=== PATIENT | female | born 1955 | race Caucasian/White ===

== ENCOUNTER 2016-03-25 22:29 | Inpatient (IN) | payer OTHER ==
--- NOTE | 2016-03-25 22:45 | PDOC ---
History of Present Illness - General History Source: Patient, EMS <Josemaria victoriaYovany yeh - Last Filed: 03/26/16 00:13> - General History Source: Patient Exam Limitations: No Limitations - History of Present Illness Initial Comments: 03/25/16 23:19 The patient is a 57 year old female, with no significant past medical history, who presents to the emergency department complaining of a cough and progressively worsening shortness of breath for 2 days. The patient describes the cough as productive with rust colored sputum. The patient denies any associated fever, chills, headache, or dizziness. She states she was last seen by her application coordinator in October, who said her heart was normal at the time. She reports she was started on diuretics at the time, but has discontinued treatment. The patient denies any prior diagnosis of COPD or heart failure. The patient reports she has been feeling generally weak and tired for several days. She reports worsening facial puffiness and eye itchiness for the past 3 weeks. The patient denies any nausea, vomiting, diarrhea, constipation, or changes in urinary output. The patient denies any chest pain, diaphoresis, or palpitations. Allergies: None reported. Past Surgical History: None reported. Social History: Former smoker(quit 1 year ago). Denies alcohol or drug use. <Armida Mccarthy - Last Filed: 03/26/16 01:38> - General Chief Complaint: Shortness of Breath Stated Complaint: SHORTNESS OF BREATH Time Seen by Provider: 03/25/16 22:43 Past History - Psycho/Social/Smoking Cessation Hx Suicidal Ideation: No Smoking History: Former smoker Have you smoked in the past 12 months: Yes Information on smoking cessation initiated: Yes Hx Alcohol Use: No Drug/Substance Use Hx: No <Yovany De Leon - Last Filed: 03/26/16 00:13> <Armida Mccarthy - Last Filed: 03/26/16 01:38> - Past Medical History Allergies/Adverse Reactions: Allergies Allergy/AdvReac Type Severity Reaction Status Date / Time No Known Allergies Allergy Verified 03/25/16 22:38 Home Medications: Ambulatory Orders Amlodipine Besylate 5 mg PO DAILY 03/26/16 Review of Systems - Review of Systems Able to Perform ROS?: Yes Comments:: 03/25/16 23:19 CONSTITUTIONAL: Present: +generalized weakness, +tiredness Absent: fever, chills, diaphoresis, malaise, loss of appetite HEENT: Absent: rhinorrhea, nasal congestion, throat pain, throat swelling, difficulty swallowing, mouth swelling, ear pain, eye pain, visual Changes CARDIOVASCULAR: Absent: chest pain, syncope, palpitations, irregular heart rate, lightheadedness , peripheral edema RESPIRATORY: Present: +cough, +shortness of breath Absent: dyspnea with exertion, orthopnea, wheezing, stridor, hemoptysis GASTROINTESTINAL: Absent: abdominal pain, abdominal distension, nausea, vomiting, diarrhea, constipation, melena, hematochezia GENITOURINARY: Absent: dysuria, frequency, urgency, hesitancy, hematuria, flank pain, genital pain MUSCULOSKELETAL: Absent: myalgia, arthralgia, joint swelling SKIN: Absent: rash, itching, pallor HEMATOLOGIC/IMMUNOLOGIC: Absent: easy bleeding, easy bruising, lymphadenopathy, frequent infections ENDOCRINE: Absent: unexplained weight gain, unexplained weight loss, heat intolerance, cold intolerance NEUROLOGIC: Absent: headache, focal weakness or paresthesias, dizziness, unsteady gait, seizure, mental status changes, bladder or bowel incontinence PSYCHIATRIC: Absent: anxiety, depression, suicidal or homicidal ideation, hallucinations. <Armida Mccarthy - Last Filed: 03/26/16 01:38> *Physical Exam - Vital Signs Last Vital Signs Temp Pulse Resp BP Pulse Ox 97.7 F 111 H 24 126/87 03/25/16 22:38 03/25/16 22:38 03/25/16 22:38 03/25/16 22:38 <Yovany De Leon - Last Filed: 03/26/16 00:13> - Vital Signs Last Vital Signs Temp Pulse Resp BP Pulse Ox 97.7 F 111 H 24 126/87 64 L 03/25/16 22:38 03/25/16 22:38 03/25/16 22:38 03/25/16 22:38 03/25/16 22:38 - Physical Exam Comments: 03/25/16 23:19 GENERAL: Well developed, well nourished. Awake and alert. HEENT: Facial edema. Normocephalic, atraumatic. PERRLA, EOMI. No conjunctival pallor. Sclera are non-icteric. Moist mucous membranes. Oropharynx is clear. NECK: Supple. Full ROM. No JVD. Carotid pulses 2+ and symmetric, without bruits. No thyromegaly. No lymphadenopathy. CARDIOVASCULAR: Tachycardic. No murmurs, rubs, or gallops. Distal pulses are 2+ and symmetric. PULMONARY: Significant respiratory distress. oarse wheezing bilaterally in all lung branch. No rales or rhonchi. ABDOMINAL: Soft. Non-tender. Non-distended. No rebound or guarding. No organomegaly. Normoactive bowel sounds. MUSCULOSKELETAL Normal range of motion at all joints. No bony deformities or tenderness. No CVA tenderness. EXTREMITIES: +2 pitting edema in bilateral lower extremities. No cyanosis. No clubbing. No calf tenderness. SKIN: Warm and dry. Normal capillary refill. No rashes. No jaundice. NEUROLOGICAL: Alert, awake, appropriate. Cranial nerves 2-12 intact. No deficits to light touch and temperature in face, upper extremities and lower extremities. No motor deficits in the in face, upper extremities and lower extremities. Normoreflexic in the upper and lower extremities. Normal speech. Toes are down- going bilaterally. Gait is normal without ataxia. PSYCHIATRIC: Cooperative. Good eye contact. Appropriate mood and affect. <Armida Mccarthy - Last Filed: 03/26/16 01:38> Heart Score/ECG Review - ECG Impressions Comment:: 03/26/16 01:38 Vent. Rate: 97 bpm IMPRESSION: Normal sinus rhythm. Possible left atrial enlargement. Right bundle branch block. <Armida Mccarthy - Last Filed: 03/26/16 01:38> ED Treatment Course - LABORATORY CBC & Chemistry Diagram: 03/25/16 23:00 03/25/16 23:00 <Yovany De Leon - Last Filed: 03/26/16 00:13> - LABORATORY CBC & Chemistry Diagram: 03/25/16 23:00 03/25/16 23:00 - ADDITIONAL ORDERS Additional order review: 03/25/16 23:00 RBC 3.96 MCV 108.4 H MCHC 33.5 RDW 14.0 MPV 7.1 L Neutrophils % Y Lymphocytes % Y - RADIOLOGY Radiograph Interpretation: 03/26/16 00:15 EXAM: CXR INTERPRETED BY: Dr. King REVIEWED BY: Dr. De Leon IMPRESSION: Cardiomegaly with bilateral interstitial and airspace opacities mainly in the right lung and consolidation in the right lower lobe consistent with pneumonia. Correlate clinically and follow-up is needed <Armida Mccarthy - Last Filed: 03/26/16 01:38> Medical Decision Making - Medical Decision Making 03/26/16 00:13 Dr. De Leon: The scribe's documentation has been prepared under my direction and personally reviewed by me in its entirery. I confirm that the note above accurately reflects all work, treatment, procedures, and medical decision making performed by me. Patient found to have a right lower lobe pneumonia. Patient will be to [facility] for IV Abx <Yovany De Leon - Last Filed: 03/26/16 00:13> *DC/Admit/Observation/Transfer - Discharge Dispostion Admit: Yes <Yovany De Leon - Last Filed: 03/26/16 00:13> <Armida Mccarthy - Last Filed: 03/26/16 01:38> Diagnosis at time of Disposition: Pneumonia Qualifiers: Pneumonia type: due to unspecified organism Laterality: right Lung location: lower lobe of lung Qualified Code(s): J18.9 - Pneumonia, unspecified organism - Referrals
[2016-03-25] MEDS ORDERED: MAGNESIUM SULF 50% (8.12 MEQ/2 ML-1 GM VIAL) IVPB ONE (22:56)
[2016-03-25] MEDS ORDERED: methylPREDNISolone NA SUCC 125 MG/2 ML VIAL IVPB ONE (22:56)
[2016-03-25 23:12] LABS: MCH 36.4 pg (25.7-33.7); MCHC 33.5 g/dl (32.0-36.0); MEAN CELL VOLUME 108.4 fl (80-96); MEAN PLT VOLUME 7.1 fl (7.5-11.1); PLATELET COUNT 231 K/MM3 (134-434); WHITE BLOOD COUNT 10.9 K/mm3 (4.0-10.0)
[2016-03-25] MEDS ORDERED: MAGNESIUM SULF 50% (8.12 MEQ/2 ML-1 GM VIAL) ONE (23:12)
[2016-03-25] MEDS ORDERED: methylPREDNISolone NA SUCC 125 MG/2 ML VIAL ONE (23:12)
[2016-03-25] MEDS ORDERED: ALBUTEROL SO4 2.5/IPRATROPIUM 0.5 INH SOL 3 ML VIAL.NEB. NEB STA ×2 (23:16)
[2016-03-25 23:31] LABS: ALBUMIN 3.2 g/dl (3.4-5.0); ANION GAP 12 (8-16); BILIRUBIN,TOTAL 0.5 mg/dL (0.2-1.0); CO2 32 mmol/L (21-32); CREATININE 0.6 mg/dL (0.55-1.02); GLUCOSE,RANDOM 135 mg/dL (74-106); SGOT/AST 33 U/L (15-37); SGPT/ALT 27 U/L (12-78); TOT PROT 6.8 g/dl (6.4-8.2)
[2016-03-25 23:32] LABS: ALK PHOS 79 U/L (45-117)
[2016-03-25] MEDS ORDERED: ALBUTEROL SO4 2.5/IPRATROPIUM 0.5 INH SOL 3 ML VIAL.NEB. NEB ONE (23:37)
[2016-03-25 23:54] LABS: TROPONIN I 0.07 ng/ml (0.00-0.05)
[2016-03-25] MEDS ORDERED: AZITHROMYCIN IVPB 500 MG in DEXTROSE 5%-WATER - 250 ML IVPB ONE (23:54)
[2016-03-25] MEDS ORDERED: CEFTRIAXONE 50 ML ONE (23:55)
[2016-03-25] MEDS ORDERED: AZITHROMYCIN IVPB 250 ML IVPB ONE (23:55)
[2016-03-25] MEDS ORDERED: METOCLOPRAMIDE HCL INJECTION 10 MG/2 ML VIAL IVPUSH ONE (23:56)
[2016-03-26] MEDS ORDERED: AZITHROMYCIN IVPB 250 ML IVPB ONE ×2 (00:09→09:21)
[2016-03-26] MEDS ORDERED: METOCLOPRAMIDE HCL INJECTION 10 MG/2 ML VIAL ONE ×2 (00:09→00:16)
--- NOTE | 2016-03-26 00:19 | PN ---
<Yohana Marrero - Last Filed: 03/26/16 05:02> Teaching Attending Note ATTENDING PHYSICIAN STATEMENT I saw and evaluated the patient. I reviewed the resident's note and discussed the case with the resident. I agree with the resident's findings and plan as documented. SUBJECTIVE: The patient is a 60 yo F who presented to the ED with worsening dyspnea for the past week. The patient describes sudden onset of SOB that has progressively worsened. She reports a fall 3 days ago where she fell to the ground and injured her ribs, R knee and R wrist. The patient denies any headache, blurry vision, LOC or any neck/head trauma. The patient states her dyspnea worsened since the fall and states it is exacerbated with movement and is associated with palpitations. The patient also reports decreased appetite, productive cough (yellow), clear rhinnorhea and yellow secretions draining from her eyes. The patient denies chest pain or dizziness. She denies fever, chills, nausea, vomit, diarrhea or constipation. She denies dysuria, frequency, urgency or hematuria. She presents to the ED for further evaluation. PMHx: HTN and Chronic back pain. OBJECTIVE: Physical Last Vital Signs Temp Pulse Resp BP Pulse Ox 97.7 F 80 17 126/87 95 03/25/16 22:38 03/26/16 00:56 03/26/16 00:56 03/25/16 22:38 03/26/16 00:58 GENERAL: + Morbidly obese F on BiPAP. Awake, alert, and fully oriented, in no acute distress HEENT: Atraumatic. PERRLA, EOMI. Moist mucosa. No JVD. + Crusted secretions draining from eyelids. + Plethoric face. LUNGS: + Decreased breath sounds on the L bases. + Scattered rhonchi. + R basal crackles + Expiratory wheezing. HEART: Regular rate and rhythm, normal S1 and S2, no murmurs, rubs or gallops, peripheral pulses normal and equal bilaterally. ABDOMEN: Soft, nontender, normoactive bowel sounds. No guarding, no rebound. No masses EXTREMITIES: + 2+ bilateral pitting edema. Normal inspection, Normal range of motion. No clubbing or cyanosis. NEUROLOGICAL: Cranial nerves II through XII grossly intact. Normal speech, normal gait, no focal sensorimotor deficits SKIN: Warm, Dry, normal turgor, no rashes or lesions noted. CBCD WBC 10.9 K/mm3 (4.0-10.0) H 03/25/16 23:00 RBC 3.96 M/mm3 (3.60-5.2) 03/25/16 23:00 Hgb 14.4 GM/dL (10.7-15.3) 03/25/16 23:00 Hct 42.9 % (32.4-45.2) 03/25/16 23:00 MCV 108.4 fl (80-96) H 03/25/16 23:00 MCHC 33.5 g/dl (32.0-36.0) 03/25/16 23:00 RDW 14.0 % (11.6-15.6) 03/25/16 23:00 Plt Count 231 K/MM3 (134-434) 03/25/16 23:00 MPV 7.1 fl (7.5-11.1) L 03/25/16 23:00 CMP Sodium 128 mmol/L (136-145) L 03/25/16 23:00 Potassium 4.6 mmol/L (3.5-5.1) 03/25/16 23:00 Chloride 84 mmol/L (98-107) L 03/25/16 23:00 Carbon Dioxide 32 mmol/L (21-32) 03/25/16 23:00 Anion Gap 12 (8-16) 03/25/16 23:00 BUN 8 mg/dL (7-18) 03/25/16 23:00 Creatinine 0.6 mg/dL (0.55-1.02) 03/25/16 23:00 Creat Clearance w eGFR > 60 (>60) 03/25/16 23:00 Calcium 8.0 mg/dL (8.5-10.1) L 03/25/16 23:00 Total Bilirubin 0.5 mg/dL (0.2-1.0) 03/25/16 23:00 AST 33 U/L (15-37) 03/25/16 23:00 ALT 27 U/L (12-78) 03/25/16 23:00 Alkaline Phosphatase 79 U/L (45-117) 03/25/16 23:00 Total Protein 6.8 g/dl (6.4-8.2) 03/25/16 23:00 Albumin 3.2 g/dl (3.4-5.0) L 03/25/16 23:00 Imaging: Chest Xray Impression: Cardiomegaly with bilateral interstitial and airspace opacities mainly in the right lung and consolidation in the right lower lobe consistent with pneumonia. Correlate clinically and follow-up is needed ASSESSMENT AND PLAN: The patient is a 60 yo F with a PMHx of HTN and chronic back pain who presents with dyspnea for the past week. 1.) Sepsis secondary to PNA - Continue with Azithromycin and Rocephin - Nebulization - Tylenol PRN - IVF - Gentle hydration - BiPAP - Follow cultures - Lactic acid to be trended 2.) Elevated troponin possibly demand ischemia r/o ACS - Trend troponin - Get Echo to r/o CHF - Aspirin 3.) Moderate hyponatremia - Most likely secondary to infection - IVF - Normal saline - Repeat CMP in AM Documentation prepared by Yohana Marrero, acting as medical biller coder for Emelia Porras MD. <Emelia Porras - Last Filed: 03/26/16 07:29> Teaching Attending Note Name of Resident: Jewell Wolff Addendum to assessment & plan moderate hyponatremia possibly secondary to fluid overload vs infection. will hold IVF and diuresis lasix 40mg bid trend lactic acidosis get repeat ABG.
[2016-03-26 00:20] LABS: VENOUS BLOOD GAS HCO3 32.8 meq/L (22-29); VENOUS PH 7.31 (7.31-7.41)
[2016-03-26] MEDS ORDERED: ALBUTEROL SO4 2.5/IPRATROPIUM 0.5 INH SOL 3 ML VIAL.NEB. NEB STA (00:34)
[2016-03-26] MEDS ORDERED: METOCLOPRAMIDE HCL INJECTION 10 MG/2 ML VIAL IVPUSH ONE (00:37)
[2016-03-26] MEDS ORDERED: ALBUTEROL SO4 2.5/IPRATROPIUM 0.5 INH SOL 3 ML VIAL.NEB. NEB PRN (01:34)
[2016-03-26] MEDS ORDERED: PANTOPRAZOLE SODIUM 40 MG in SODIUM CHLORIDE 100 ML IVPB ONE (01:39)
[2016-03-26] MEDS ORDERED: SODIUM CHLORIDE 1,000 ML IV SCH (01:45)
[2016-03-26] MEDS ORDERED: PANTOPRAZOLE SODIUM 100 ML IVPB ONE (01:53)
--- NOTE | 2016-03-26 03:58 | HP ---
Addendum entered and electronically signed by Jewell Wolff, RES 03/26/16 07 :25: Calculated Serum osmolality: 266.3 Original Note: <Jewell Wolff - Last Filed: 03/26/16 07:20> CHIEF COMPLAINT: SOB PCP: Dr. Kim HISTORY OF PRESENT ILLNESS: 60 year old female presented to the ED with chief complaints of SOB x 1 week. A/ c to the patient, SOB started suddenly, progressively getting worse, exacerbated on exertion, slight relief at rest. SOB associated with palpitation on/off, cough, production of sputum, yellow in color, no blood noticed. Also reports to have runny nose on/off, stuffy nose on/off, eyes covered with yellow secretions especially in the morning. Denies fever, chills, rigors, sweating. Patient also reports she fell on the ground 3 days ago, hit her right lower ribs , right knee and right wrist. She didn't seek any medical attention. SOB of breath got worse after the fall she says. Patient mentions she had allergies one month ago, went to her primary doctor, was given medication. Since then she hasn't been feeling well. Couldn't explain what the diagnosis was or which drugs she took. Denies headache, blurring of vision, loc, trauma to head. Sleep disturbed. Appetite Decreased since illness. Bowel/Bladder habit normal. Lives with mother age 92yrs. Gives no h/o asthma or COPD. But was given Symbicort by her PCP. Went to her private inquiry agent last October and was given diuretics but stopped taking the medication. ER course was notable for: (1) CBC, CMP, UA, troponins (2) CXR (3) Duoneb, Magnesium Sulfate, Ceftriaxone, Metoclopromide, Azithromycin Recent Travel: None PAST MEDICAL HISTORY: Hypertension, chronic back pain PAST SURGICAL HISTORY: None Social History: Smoking: Smoked for 40 yrs, 1-2packs/day, left smoking 1 yr ago Alcohol: 2-3times/week, 2-3beers at one time Drugs: Marijuana in teenager Family History: Unknown Allergies No Known Allergies Allergy (Verified 03/25/16 22:38) HOME MEDICATIONS: Home Medications Medication Instructions Recorded Amlodipine Besylate 5 mg PO DAILY 03/26/16 REVIEW OF SYSTEMS CONSTITUTIONAL: Absent: fever, chills, diaphoresis, generalized weakness, malaise, loss of appetite, weight change HEENT: Present: nasal congestion, rhinorrhea Absent: throat pain, throat swelling, difficulty swallowing, mouth swelling, ear pain, eye pain, visual changes CARDIOVASCULAR: Absent: chest pain, syncope, palpitations, irregular heart rate, lightheadedness , peripheral edema RESPIRATORY: Present: cough, shortness of breath, dyspnea with exertion Absent:orthopnea, wheezing, stridor, hemoptysis GASTROINTESTINAL: Absent: abdominal pain, abdominal distension, nausea, vomiting, diarrhea, constipation, melena, hematochezia GENITOURINARY: Absent: dysuria, frequency, urgency, hesitancy, hematuria, flank pain, genital pain MUSCULOSKELETAL: Absent: myalgia, arthralgia, joint swelling, back pain, neck pain SKIN: Absent: rash, itching, pallor HEMATOLOGIC/IMMUNOLOGIC: Absent: easy bleeding, easy bruising, lymphadenopathy, frequent infections ENDOCRINE: Absent: unexplained weight gain, unexplained weight loss, heat intolerance, cold intolerance NEUROLOGIC: Absent: headache, focal weakness or paresthesias, dizziness, unsteady gait, seizure, mental status changes, bladder or bowel incontinence PSYCHIATRIC: Absent: anxiety, depression, suicidal or homicidal ideation, hallucinations. PHYSICAL EXAMINATION Vital Signs - 24 hr 03/26/16 03/26/16 03/26/16 00:17 00:56 00:58 Pulse Rate [ 90 80 Right] Respiratory 20 17 Rate Blood Pressure [Right Arm] O2 Sat by Pulse 88 L 95 95 Oximetry (%) 03/26/16 03:27 Pulse Rate [ 81 Right] Respiratory 17 Rate Blood Pressure 127/64 [Right Arm] O2 Sat by Pulse 96 Oximetry (%) GENERAL: Morbidly obese female on BiPap, Awake, alert, and fully oriented, in mild respiratory distress. HEAD: Normal with no signs of trauma. EYES: Crusted with secretions on the eye lids, upper eyelid swelling, EOM intact , no pallor or icterus. EARS, NOSE, THROAT: Plethoric face, Ears normal. Moist mucous membranes. NECK: Normal range of motion, supple without lymphadenopathy, JVD, or masses. LUNGS: Decreased breath sounds on the left>right, scattered rhonchi, expiratory wheeze, right basal crackles. HEART: Regular rate and rhythm, normal S1 and S2 without murmur, rub or gallop. ABDOMEN: Soft, nontender, not distended, normoactive bowel sounds, no guarding, no rebound, no masses. No hepatomegaly or splenomegaly. MUSCULOSKELETAL: Normal range of motion at all joints. No bony deformities or tenderness. No CVA tenderness. UPPER EXTREMITIES: 2+ pulses, warm, well-perfused. No cyanosis. No clubbing. Cap refill <2 seconds. No peripheral edema. LOWER EXTREMITIES: 2+ pulses, warm, well-perfused. No calf tenderness. +2 pitting edema in bilateral lower extremities. NEUROLOGICAL: Cranial nerves II-XII intact. Normal speech. Gait not observed. PSYCHIATRIC: Cooperative. Good eye contact. Appropriate mood and affect. SKIN: Warm, dry, normal turgor, no rashes or lesions noted. Laboratory Results - last 24 hr 03/26/16 01:26 Lactic Acid 1.822 CXR 03/26/2016- Cardiomegaly with bilateral interstitial and airspace opacities mainly in the right lung and consolidation in the right lower lobe consistent with pneumonia. ASSESSMENT/PLAN: 60 year old female with significant past medical hx of HTN presented to the ED with chief complaints of SOB x 1 week. # SOB, cough most likely due to RLL pneumonia Patient presented with SOB, cough producing yellowish sputum Afebrile, spo2-88, leukocytosis of 10.9, Lactic acid 2.5--->1.8 VBG showed respiratory acidosis CXR showed RLL pneumonia, report mentioned above In the ED, patient was given Duoneb, Magnesium Sulfate, Ceftriaxone, Azithromycin, Bipap Now, continued with IV Ceftriaxone 1gm Daily IV Azithromycin 500mg Daily Duoneb PRN IV @ 75mls/hr Bipap Blood culture pending Urine for legionella pending Nasopharyngeal swab negative for flu # Increased troponin most likely demand ischemia R/O CHF Troponin 0.07, No ST elevation or depression Next cardiac enzyme @ 5:30am Admitted to Tele Continuous cardiac monitoring BNP ordered Lasix 40mg PO stat and BID Echo ordered-r/o CHF Repeat EKG ordered for this am Lipid profile ordered # Moderate Hyponatremia Na-128 Repeat CMP this am. Urine osm/Serum osm ordered Urine electrolytes ordered # Hypertension Continue Amlodipine 5mg Daily # FEN IV fluids @ 75mls/hr stopped. Electrolytes to be repeated this am Cholesterol/sodium controlled diet # Prophylaxis For DVT- Lovenox sq For GI- Not indicated # Code Status- Full Code # Dispo- Admitted in Med-surg. Duration of stay unknown. Illness, Investigation and plan of care explained to the patient. She verbalized understanding. Case discussed with Dr. Porras. Visit type - Emergency Visit Emergency Visit: Yes ED Registration Date: 03/26/16 Care time: The patient presented to the Emergency Department on the above date and was hospitalized for further evaluation of their emergent condition. - New Patient This patient is new to me today: Yes Date on this admission: 03/26/16 - Critical Care Critical Care patient: No <ChiquitaNicolasa - Last Filed: 03/27/16 00:20> CHIEF COMPLAINT: PCP: HISTORY OF PRESENT ILLNESS: ER course was notable for: (1) (2) (3) Recent Travel: PAST MEDICAL HISTORY: PAST SURGICAL HISTORY: Social History: Smoking: Alcohol: Drugs: Family History: Allergies No Known Allergies Allergy (Verified 03/25/16 22:38) HOME MEDICATIONS: Home Medications Medication Instructions Recorded Amlodipine Besylate 5 mg PO DAILY 03/26/16 REVIEW OF SYSTEMS CONSTITUTIONAL: Absent: fever, chills, diaphoresis, generalized weakness, malaise, loss of appetite, weight change HEENT: Absent: rhinorrhea, nasal congestion, throat pain, throat swelling, difficulty swallowing, mouth swelling, ear pain, eye pain, visual changes CARDIOVASCULAR: Absent: chest pain, syncope, palpitations, irregular heart rate, lightheadedness , peripheral edema RESPIRATORY: Absent: cough, shortness of breath, dyspnea with exertion, orthopnea, wheezing, stridor, hemoptysis GASTROINTESTINAL: Absent: abdominal pain, abdominal distension, nausea, vomiting, diarrhea, constipation, melena, hematochezia GENITOURINARY: Absent: dysuria, frequency, urgency, hesitancy, hematuria, flank pain, genital pain MUSCULOSKELETAL: Absent: myalgia, arthralgia, joint swelling, back pain, neck pain SKIN: Absent: rash, itching, pallor HEMATOLOGIC/IMMUNOLOGIC: Absent: easy bleeding, easy bruising, lymphadenopathy, frequent infections ENDOCRINE: Absent: unexplained weight gain, unexplained weight loss, heat intolerance, cold intolerance NEUROLOGIC: Absent: headache, focal weakness or paresthesias, dizziness, unsteady gait, seizure, mental status changes, bladder or bowel incontinence PSYCHIATRIC: Absent: anxiety, depression, suicidal or homicidal ideation, hallucinations. PHYSICAL EXAMINATION Vital Signs - 24 hr 03/26/16 03/26/16 03/26/16 00:17 00:56 00:58 Temperature Pulse Rate Pulse Rate [ 90 80 Right] Respiratory 20 17 Rate Blood Pressure Blood Pressure [Right Arm] O2 Sat by Pulse 88 L 95 95 Oximetry (%) 03/26/16 03/26/16 03/26/16 03:27 05:05 06:52 Temperature Pulse Rate Pulse Rate [ 81 78 Right] Respiratory 17 16 Rate Blood Pressure Blood Pressure 127/64 102/63 [Right Arm] O2 Sat by Pulse 96 93 L 96 Oximetry (%) 03/26/16 03/26/16 03/26/16 07:32 10:27 10:55 Temperature Pulse Rate 94 H Pulse Rate [ 84 Right] Respiratory 18 26 H Rate Blood Pressure 133/74 Blood Pressure 104/71 [Right Arm] O2 Sat by Pulse 95 100 100 Oximetry (%) 03/26/16 03/26/16 03/26/16 14:00 14:27 14:39 Temperature Pulse Rate 80 80 Pulse Rate [ Right] Respiratory 22 22 Rate Blood Pressure 119/74 119/74 Blood Pressure [Right Arm] O2 Sat by Pulse 100 100 Oximetry (%) 03/26/16 03/26/16 03/26/16 17:20 18:00 21:00 Temperature 97.9 F Pulse Rate 91 H Pulse Rate [ Right] Respiratory 20 Rate Blood Pressure 105/73 Blood Pressure [Right Arm] O2 Sat by Pulse 95 97 Oximetry (%) 03/26/16 03/26/16 22:00 22:35 Temperature 98.4 F Pulse Rate 102 H Pulse Rate [ Right] Respiratory 22 Rate Blood Pressure 116/59 Blood Pressure [Right Arm] O2 Sat by Pulse 95 Oximetry (%) GENERAL: Awake, alert, and fully oriented, in no acute distress. HEAD: Normal with no signs of trauma. EYES: Pupils equal, round and reactive to light, extraocular movements intact, sclera anicteric, conjunctiva clear. No lid lag. EARS, NOSE, THROAT: Ears normal, nares patent, oropharynx clear without exudates. Moist mucous membranes. NECK: Normal range of motion, supple without lymphadenopathy, JVD, or masses. LUNGS: Breath sounds equal, clear to auscultation bilaterally. No wheezes, and no crackles. No accessory muscle use. HEART: Regular rate and rhythm, normal S1 and S2 without murmur, rub or gallop. ABDOMEN: Soft, nontender, not distended, normoactive bowel sounds, no guarding, no rebound, no masses. No hepatomegaly or splenomegaly. MUSCULOSKELETAL: Normal range of motion at all joints. No bony deformities or tenderness. No CVA tenderness. UPPER EXTREMITIES: 2+ pulses, warm, well-perfused. No cyanosis. No clubbing. Cap refill <2 seconds. No peripheral edema. LOWER EXTREMITIES: 2+ pulses, warm, well-perfused. No calf tenderness. No peripheral edema. NEUROLOGICAL: Cranial nerves II-XII intact. Normal speech. Normal gait. PSYCHIATRIC: Cooperative. Good eye contact. Appropriate mood and affect. SKIN: Warm, dry, normal turgor, no rashes or lesions noted. Laboratory Results - last 24 hr 03/26/16 03/26/16 03/26/16 01:26 06:05 06:05 WBC RBC Hgb Hct MCV MCHC RDW Plt Count MPV Neutrophils % Lymphocytes % Monocytes % Eosinophils % Band Neutrophils Reactive Lymphocytes Platelet Estimate Anisocytosis Macrocytosis Puncture Site ABG pH ABG pCO2 at Pt Temp ABG pO2 at Pt Temp ABG HCO3 ABG O2 Sat (Measured) ABG O2 Content ABG Base Excess [place] Test O2 Delivery Device Oxygen Flow Rate Vent Mode Vent Rate Mechanical Rate PEEP Pressure Support Vent Sodium 131 L Potassium 5.5 H Chloride 90 L Carbon Dioxide 33 H Anion Gap 8 BUN 7 Creatinine 0.7 Creat Clearance w eGFR > 60 Random Glucose 165 H D Serum Osmolality Lactic Acid 1.822 Calcium 8.4 L Magnesium 2.3 Total Bilirubin 0.3 D AST 33 ALT 29 Alkaline Phosphatase 88 Creatine Kinase 111 Troponin I 0.06 H B-Natriuretic Peptide 497.56 H Total Protein 7.3 Albumin 3.2 L Triglycerides Cholesterol Total LDL Cholesterol HDL Cholesterol Urine Color Straw Urine Appearance Clear Urine pH 6.0 Ur Specific Blue 1.003 Urine Protein Negative Urine Glucose (UA) Negative Urine Ketones Negative Urine Blood Negative Urine Nitrite Negative Urine Bilirubin Negative Urine Urobilinogen Negative Ur Leukocyte Esterase Negative Urine Osmolality Ur Random Sodium Ur Random Potassium Ur Random Chloride 03/26/16 03/26/16 03/26/16 06:05 06:05 06:05 WBC 10.8 H RBC 4.19 Hgb 15.1 Hct 45.6 H MCV 108.9 H MCHC 33.0 RDW 13.8 Plt Count 233 MPV 6.9 L Neutrophils % 87.0 H Lymphocytes % 3.0 L Monocytes % 1.0 L Eosinophils % 2.0 Band Neutrophils 5.0 Reactive Lymphocytes 2 Platelet Estimate Adequate Anisocytosis 1+ Macrocytosis 1+ Puncture Site ABG pH ABG pCO2 at Pt Temp ABG pO2 at Pt Temp ABG HCO3 ABG O2 Sat (Measured) ABG O2 Content ABG Base Excess [place] Test O2 Delivery Device Oxygen Flow Rate Vent Mode Vent Rate Mechanical Rate PEEP Pressure Support Vent Sodium Potassium Chloride Carbon Dioxide Anion Gap BUN Creatinine Creat Clearance w eGFR Random Glucose Serum Osmolality Lactic Acid 2.581 H* Calcium Magnesium Total Bilirubin AST ALT Alkaline Phosphatase Creatine Kinase Troponin I B-Natriuretic Peptide Total Protein Albumin Triglycerides 102 Cholesterol 143 Total LDL Cholesterol 87 HDL Cholesterol 50 Urine Color Urine Appearance Urine pH Ur Specific Blue Urine Protein Urine Glucose (UA) Urine Ketones Urine Blood Urine Nitrite Urine Bilirubin Urine Urobilinogen Ur Leukocyte Esterase Urine Osmolality Ur Random Sodium Ur Random Potassium Ur Random Chloride 03/26/16 03/26/16 03/26/16 06:05 06:05 07:40 WBC RBC Hgb Hct MCV MCHC RDW Plt Count MPV Neutrophils % Lymphocytes % Monocytes % Eosinophils % Band Neutrophils Reactive Lymphocytes Platelet Estimate Anisocytosis Macrocytosis Puncture Site Right radial ABG pH 7.27 L ABG pCO2 at Pt Temp 68.6 H* ABG pO2 at Pt Temp 72.1 L ABG HCO3 30.3 H ABG O2 Sat (Measured) 90.2 ABG O2 Content 18.2 ABG Base Excess 1.6 [place] Test Positive O2 Delivery Device Bipap Oxygen Flow Rate 100 Vent Mode Ipap 12 Vent Rate 14 Mechanical Rate PEEP Pressure Support Vent Epap 6 Sodium Potassium Chloride Carbon Dioxide Anion Gap BUN Creatinine Creat Clearance w eGFR Random Glucose Serum Osmolality 272 L Lactic Acid Calcium Magnesium Total Bilirubin AST ALT Alkaline Phosphatase Creatine Kinase Troponin I B-Natriuretic Peptide Total Protein Albumin Triglycerides Cholesterol Total LDL Cholesterol HDL Cholesterol Urine Color Urine Appearance Urine pH Ur Specific Blue Urine Protein Urine Glucose (UA) Urine Ketones Urine Blood Urine Nitrite Urine Bilirubin Urine Urobilinogen Ur Leukocyte Esterase Urine Osmolality 113 L Ur Random Sodium 9 Ur Random Potassium 5.6 Ur Random Chloride < 10 03/26/16 03/26/16 03/26/16 11:40 11:56 15:10 WBC RBC Hgb Hct MCV MCHC RDW Plt Count MPV Neutrophils % Lymphocytes % Monocytes % Eosinophils % Band Neutrophils Reactive Lymphocytes Platelet Estimate Anisocytosis Macrocytosis Puncture Site Right radial ABG pH 7.30 L ABG pCO2 at Pt Temp 64.6 H* ABG pO2 at Pt Temp 92.8 D ABG HCO3 30.4 H ABG O2 Sat (Measured) 95.7 ABG O2 Content 18.8 ABG Base Excess 2.5 H [place] Test Positive O2 Delivery Device Bipap Oxygen Flow Rate 100% Vent Mode S/t Vent Rate 14 Mechanical Rate Bipap PEEP 5.0 Pressure Support Vent 12 Sodium Potassium Chloride Carbon Dioxide Anion Gap BUN Creatinine Creat Clearance w eGFR Random Glucose Serum Osmolality Lactic Acid 1.453 1.386 Calcium Magnesium Total Bilirubin AST ALT Alkaline Phosphatase Creatine Kinase Troponin I B-Natriuretic Peptide Total Protein Albumin Triglycerides Cholesterol Total LDL Cholesterol HDL Cholesterol Urine Color Urine Appearance Urine pH Ur Specific Blue Urine Protein Urine Glucose (UA) Urine Ketones Urine Blood Urine Nitrite Urine Bilirubin Urine Urobilinogen Ur Leukocyte Esterase Urine Osmolality Ur Random Sodium Ur Random Potassium Ur Random Chloride 03/26/16 15:10 WBC RBC Hgb Hct MCV MCHC RDW Plt Count MPV Neutrophils % Lymphocytes % Monocytes % Eosinophils % Band Neutrophils Reactive Lymphocytes Platelet Estimate Anisocytosis Macrocytosis Puncture Site ABG pH ABG pCO2 at Pt Temp ABG pO2 at Pt Temp ABG HCO3 ABG O2 Sat (Measured) ABG O2 Content ABG Base Excess [place] Test O2 Delivery Device Oxygen Flow Rate Vent Mode Vent Rate Mechanical Rate PEEP Pressure Support Vent Sodium Potassium Chloride Carbon Dioxide Anion Gap BUN Creatinine Creat Clearance w eGFR Random Glucose Serum Osmolality Lactic Acid Calcium Magnesium Total Bilirubin AST ALT Alkaline Phosphatase Creatine Kinase Troponin I 0.04 B-Natriuretic Peptide Total Protein Albumin Triglycerides Cholesterol Total LDL Cholesterol HDL Cholesterol Urine Color Urine Appearance Urine pH Ur Specific Blue Urine Protein Urine Glucose (UA) Urine Ketones Urine Blood Urine Nitrite Urine Bilirubin Urine Urobilinogen Ur Leukocyte Esterase Urine Osmolality Ur Random Sodium Ur Random Potassium Ur Random Chloride ASSESSMENT/PLAN:
[2016-03-26 06:13] LABS: MEAN CELL VOLUME 108.9 fl (80-96); MEAN PLT VOLUME 6.9 fl (7.5-11.1); PLATELET COUNT 233 K/MM3 (134-434); RDW 13.8 % (11.6-15.6); WHITE BLOOD COUNT 10.8 K/mm3 (4.0-10.0)
[2016-03-26 06:21] LABS: URINE APPEARANCE CLEAR; URINE BILIRUBIN NEGATIVE (NEGATIVE); URINE BLOOD NEGATIVE (NEGATIVE); URINE COLOR STRAW; URINE GLUCOSE (UA) NEGATIVE (NEGATIVE); URINE KETONE NEGATIVE (NEGATIVE); URINE LEUK ESTERASE NEGATIVE (NEGATIVE); URINE NITRITE NEGATIVE (NEGATIVE); URINE PROTEIN NEGATIVE (NEGATIVE); URINE UROBILINOGEN NEGATIVE E.U./dl (0.2-1.0)
[2016-03-26] MEDS ORDERED: FUROSEMIDE 40 MG TABLET (FP) PO ONE (06:23)
[2016-03-26 06:29] LABS: CHLORIDE,RANDOM URINE < 10 MMOL/L; SODIUM,RANDOM URINE 9 MMOL/L
[2016-03-26] MEDS ORDERED: FUROSEMIDE 40 MG TABLET (FP) ONE (06:31)
[2016-03-26 06:34] LABS: CHOLESTEROL 143 mg/dL (50-200); LDL CHOLESTEROL (ONLY SJRH) 87 mg/dL (5-100)
[2016-03-26 06:35] LABS: ALBUMIN 3.2 g/dl (3.4-5.0); ALK PHOS 88 U/L (45-117); ANION GAP 8 (8-16); BILIRUBIN,TOTAL 0.3 mg/dL (0.2-1.0); CALCIUM 8.4 mg/dL (8.5-10.1); CO2 33 mmol/L (21-32); CREATININE 0.7 mg/dL (0.55-1.02); GLUCOSE,RANDOM 165 mg/dL (74-106); MAGNESIUM 2.3 mg/dL (1.8-2.4); SGOT/AST 33 U/L (15-37); SGPT/ALT 29 U/L (12-78); TOT PROT 7.3 g/dl (6.4-8.2)
[2016-03-26 06:37] LABS: TROPONIN I 0.06 ng/ml (0.00-0.05)
[2016-03-26 06:44] LABS: OSMOLALITY,SERUM 272 mosm/kg (278-305)
[2016-03-26 07:01] LABS: ANISOCYTOSIS 1+; PLATELET ESTIMATE ADEQUATE (NORMAL)
--- NOTE | 2016-03-26 07:42 | PN ---
<Della Noguera - Last Filed: 03/26/16 10:18> Physical Exam: SUBJECTIVE: Patient seen and examined patient resting in bed, mils respiratory distress, BIPAP on. afebrile and hemodynamically stable. No acute events overnight. States her sob is a littel better andshe feels better. Admits to having a pulmonary function test done along with TTE and stress test in August that revealed "weak lungs". Admits to waking up from sleep unable to breathe and family hx of sleep apnea. States she is still wheezing. Deneis h/a, chest pain, sob, n/v, abd pain , diarrhea, cough , rhinorrhea. OBJECTIVE: Vital Signs Period Temp Pulse Resp BP Sys/Pride Pulse Ox Last 24 Hr 78-90 16-20 102-127/63-71 88-96 GENERAL: The patient is awake, alert, and fully oriented, mild distress HEAD: Normal with no signs of trauma. EYES: PERRL, extraocular movements intact, sclera anicteric, conjunctiva clear. ENT: moist mucous membranes. NECK: supple. LUNGS: bibasilar ronchi diffuse wheezes HEART: Regular rate and rhythm, S1, S2 ABDOMEN: Soft, nontender, nondistended, normoactive bowel sounds EXTREMITIES: 2+ pulses, warm, well-perfused, 1+ b/l LE edema (patisnt states this is better than baseline) . NEUROLOGICAL: Cranial nerves II through XII grossly intact. Normal speech, gait not observed. PSYCH: Normal mood, normal affect. SKIN: Warm, dry Laboratory Results - last 24 hr 03/26/16 03/26/16 03/26/16 01:26 06:05 06:05 WBC RBC Hgb Hct MCV MCHC RDW Plt Count MPV Neutrophils % Lymphocytes % Monocytes % Eosinophils % Band Neutrophils Reactive Lymphocytes Platelet Estimate Anisocytosis Macrocytosis Sodium 131 L Potassium 5.5 H Chloride 90 L Carbon Dioxide 33 H Anion Gap 8 BUN 7 Creatinine 0.7 Creat Clearance w eGFR > 60 Random Glucose 165 H D Serum Osmolality Lactic Acid 1.822 Calcium 8.4 L Magnesium 2.3 Total Bilirubin 0.3 D AST 33 ALT 29 Alkaline Phosphatase 88 Creatine Kinase 111 Troponin I 0.06 H Total Protein 7.3 Albumin 3.2 L Triglycerides Cholesterol Total LDL Cholesterol HDL Cholesterol Urine Color Straw Urine Appearance Clear Urine pH 6.0 Ur Specific Tina 1.003 Urine Protein Negative Urine Glucose (UA) Negative Urine Ketones Negative Urine Blood Negative Urine Nitrite Negative Urine Bilirubin Negative Urine Urobilinogen Negative Ur Leukocyte Esterase Negative Urine Osmolality Ur Random Sodium Ur Random Potassium Ur Random Chloride 03/26/16 03/26/16 03/26/16 06:05 06:05 06:05 WBC 10.8 H RBC 4.19 Hgb 15.1 Hct 45.6 H MCV 108.9 H MCHC 33.0 RDW 13.8 Plt Count 233 MPV 6.9 L Neutrophils % 87.0 H Lymphocytes % 3.0 L Monocytes % 1.0 L Eosinophils % 2.0 Band Neutrophils 5.0 Reactive Lymphocytes 2 Platelet Estimate Adequate Anisocytosis 1+ Macrocytosis 1+ Sodium Potassium Chloride Carbon Dioxide Anion Gap BUN Creatinine Creat Clearance w eGFR Random Glucose Serum Osmolality Lactic Acid 2.581 H* Calcium Magnesium Total Bilirubin AST ALT Alkaline Phosphatase Creatine Kinase Troponin I Total Protein Albumin Triglycerides 102 Cholesterol 143 Total LDL Cholesterol 87 HDL Cholesterol 50 Urine Color Urine Appearance Urine pH Ur Specific Tina Urine Protein Urine Glucose (UA) Urine Ketones Urine Blood Urine Nitrite Urine Bilirubin Urine Urobilinogen Ur Leukocyte Esterase Urine Osmolality Ur Random Sodium Ur Random Potassium Ur Random Chloride 03/26/16 03/26/16 06:05 06:05 WBC RBC Hgb Hct MCV MCHC RDW Plt Count MPV Neutrophils % Lymphocytes % Monocytes % Eosinophils % Band Neutrophils Reactive Lymphocytes Platelet Estimate Anisocytosis Macrocytosis Sodium Potassium Chloride Carbon Dioxide Anion Gap BUN Creatinine Creat Clearance w eGFR Random Glucose Serum Osmolality 272 L Lactic Acid Calcium Magnesium Total Bilirubin AST ALT Alkaline Phosphatase Creatine Kinase Troponin I Total Protein Albumin Triglycerides Cholesterol Total LDL Cholesterol HDL Cholesterol Urine Color Urine Appearance Urine pH Ur Specific Tina Urine Protein Urine Glucose (UA) Urine Ketones Urine Blood Urine Nitrite Urine Bilirubin Urine Urobilinogen Ur Leukocyte Esterase Urine Osmolality 113 L Ur Random Sodium 9 Ur Random Potassium 5.6 Ur Random Chloride < 10 Active Medications Generic Name Dose Route Start Last Admin Trade Name Freq PRN Reason Stop Dose Admin Albuterol/Ipratropium 1 amp 03/26/16 01:34 Duoneb - NEB Q4H PRN SHORTNESS OF BREATH Amlodipine Besylate 5 mg 03/26/16 10:00 Norvasc - PO DAILY ASHTYN Enoxaparin Sodium 40 mg 03/26/16 10:00 Lovenox - SQ DAILY ASHTYN Furosemide 40 mg 03/26/16 14:00 Lasix - PO BID@0600,1400 ASHTYN Azithromycin 250 mls @ 250 mls/hr 03/26/16 10:00 Zithromax 500mg Ivpb (Pre-Docked) IVPB DAILY ASHTYN Ceftriaxone Sodium 50 mls @ 100 mls/hr 03/26/16 10:00 Rocephin 1gm Ivpb (Pre-Docked) IVPB DAILY ASHTYN Prednisone 40 mg 03/26/16 10:00 Deltasone - PO DAILY ASHTYN ASSESSMENT/PLAN: 60 year old female with significant past medical hx of HTN presented to the ED with chief complaints of SOB x 1 week. Acute on chronic COPD exacerbation due to PNA -likely viral URI preceding bacterial superinfection -History of pulmonary function test indicative of COPD (heady smoker past) -+ wheezing, RLL infiltrate on CXR -respiratory acidosis ABG on BIPAP IPAP 12, R 14, EPAP 6; repeat ABG -Blood culture pending -Urine for legionella pending -Nasopharyngeal swab negative for flu -sputum cultures -continue azitho, rocephin -medrol IV 40 bid -symbicort ashtyn -spiriva ashtyn -albuterol ASHTYN and PRN -mucomyst -Lectic acidosis 2.5; trend Elevated troponin -most likely demand ischemia -EKG RBBB, no ACS -recent negative stress test -TTE -BNP -Lasix 40mg PO BID -Lipid profile ordered Moderate Hyponatremia -Na 128, now 131 -Urine osm/Serum osm ordered -Urine electrolytes ordered -fluid overload HTN -Continue Amlodipine 5mg Daily Sleep apnea -f/u outpatient sleep study FEN No IVF Hyponatremia, monitor -DVT GI PPX: SCD, Geronimo, diet Na restricted diet Dispo: Admitted in Med-surg. Problem List - Problems (1) Pneumonia Code(s): J18.9 - PNEUMONIA, UNSPECIFIED ORGANISM Qualifiers: Pneumonia type: due to unspecified organism Laterality: right Lung location: lower lobe of lung Qualified Code(s): J18.9 - Pneumonia, unspecified organism (2) COPD exacerbation Code(s): J44.1 - CHRONIC OBSTRUCTIVE PULMONARY DISEASE W (ACUTE) EXACERBATION (3) HTN (hypertension) Code(s): I10 - ESSENTIAL (PRIMARY) HYPERTENSION (4) Volume overload Code(s): E87.70 - FLUID OVERLOAD, UNSPECIFIED (5) Abdominal obesity Code(s): E65 - LOCALIZED ADIPOSITY (6) Elevated troponin Code(s): R79.89 - OTHER SPECIFIED ABNORMAL FINDINGS OF BLOOD CHEMISTRY (7) Hyponatremia Code(s): E87.1 - HYPO-OSMOLALITY AND HYPONATREMIA Visit type - Emergency Visit Emergency Visit: Yes ED Registration Date: 03/26/16 Care time: The patient presented to the Emergency Department on the above date and was hospitalized for further evaluation of their emergent condition. - New Patient This patient is new to me today: Yes Date on this admission: 03/26/16 - Critical Care Critical Care patient: No - Discharge Referral Referred to [facility] Med P.C[facility] No <Gurwinder Roberts - Last Filed: 03/26/16 11:13> Physical Exam: ATTENDING PHYSICIAN STATEMENT I saw and evaluated the patient. I reviewed the resident's note and discussed the case with the resident. I agree with the resident's findings and plan as documented. SUBJECTIVE: seen and evaluated at the bedside OBJECTIVE: BiPAP in place in no distress, wheezes and mild bibasilar rales on exam ASSESSMENT AND PLAN: 60 year old woman admitted for acute COPD exacerbation COPD -pt was told she had weak lungs after PFT's but has not seen bet taker as of late -has wheezing on exam and extensive smoking history -was on BiPAP overnight and treated with steroids; now more comfortable -repeat ABG -cont ceftriaxone/azithromycin for possible community acquired pneumonia -start spiriva -cont symbicort -follow up pulm consult Lactic acidosis -possibly due from extensive work of breathing as pt is normotensive and not septic -worsened after IV lasix overnight -repeat lactate now; hold lasix if still elevated
[2016-03-26 07:54] LABS: ALLENS TEST POSITIVE; ART PUNCT SITE RIGHT RADIAL; ARTERIAL BLD GAS O2 SATURATION 90.2 % (90-98.9); ARTERIAL BLOOD GAS BASE EXCESS 1.6 meq/l (-2-2); ARTERIAL BLOOD GAS HCO3 30.3 meq/L (22-26); ARTERIAL BLOOD GAS PO2 72.1 mmHg (80-100); PT. ON O2? YES
[2016-03-26 07:55] LABS: ARTERIAL BLOOD GAS pH 7.27 (7.35-7.45); LPM/O2% 100; TYPE OF O2 BIPAP; VENT RATE 14; VT/PRESS EPAP 6
[2016-03-26] MEDS ORDERED: CEFTRIAXONE 50 ML ONE ×2 (09:21→09:43)
[2016-03-26] MEDS ORDERED: ENOXAPARIN NA (PORCINE) 40 MG/0.4 ML DISP.SYRIN SQ ONE (09:21)
[2016-03-26] MEDS: AZITHROMYCIN IVPB 250 ML IVPB SCH (09:39)
[2016-03-26] MEDS: ENOXAPARIN NA (PORCINE) 40 MG/0.4 ML DISP.SYRIN SQ SCH (09:39)
[2016-03-26] MEDS: amLODIPine BESYLATE 5 MG TABLET (FP) PO SCH (09:39)
[2016-03-26] MEDS ORDERED: predniSONE 20 MG TABLET (UD) PO SCH (10:00)
--- NOTE | 2016-03-26 10:27 | EKG ---
Test Reason : Blood Pressure : / mmHG Vent. Rate : 097 BPM Atrial Rate : 097 BPM P-R Int : 178 ms QRS Dur : 124 ms QT Int : 388 ms P-R-T Axes : 045 019 042 degrees QTc Int : 492 ms NORMAL SINUS RHYTHM POSSIBLE LEFT ATRIAL ENLARGEMENT RIGHT BUNDLE BRANCH BLOCK ABNORMAL ECG NO PREVIOUS ECGS AVAILABLE Confirmed by KITTY RESENDIZ MD ([id number]) on 03/26/2016 10:27:11 AM Referred By: Confirmed By:KITTY RESENDIZ MD
[2016-03-26] MEDS ORDERED: ACETYLCYSTEINE 20% 200MG/ML 4 ML VIAL *FOR ORAL / INH USE ONLY NEB ONE (10:38)
[2016-03-26] MEDS ORDERED: methylPREDNISolone NA SUCC 40 MG/1 ML VIAL IVPB SCH (10:45)
[2016-03-26] MEDS: CEFTRIAXONE 50 ML IVPB SCH (11:00)
[2016-03-26 11:05] VITALS: BMI 43.5
[2016-03-26] MEDS ORDERED: PNEUMOC 13-VAL CONJ-DIP CRM/PF 0.5 ML DISP.SYRIN IM ONE (11:05)
[2016-03-26 11:39] LABS: ARTERIAL BLD GAS O2 SATURATION 95.7 % (90-98.9); ARTERIAL BLOOD GAS BASE EXCESS 2.5 meq/l (-2-2); ARTERIAL BLOOD GAS HCO3 30.4 meq/L (22-26); ARTERIAL BLOOD GAS PO2 92.8 mmHg (80-100)
[2016-03-26] MEDS: BUDESONIDE/FORMETEROL FUMARATE 160/4.5 mcg INHALER IH SCH ×2 (11:40→21:52)
[2016-03-26] MEDS ORDERED: methylPREDNISolone NA SUCC 40 MG/1 ML VIAL ONE (11:41)
[2016-03-26 11:43] LABS: ALLENS TEST POSITIVE; ART PUNCT SITE RIGHT RADIAL; LPM/O2% 100%; MECH. VENT. BIPAP; PT. ON O2? YES; TYPE OF O2 BIPAP; VENT RATE 14; VT/PRESS 12
[2016-03-26] MEDS ORDERED: ALBUTEROL SO4 0.083% IH SOL 2.5 MG/3 ML VIAL.NEB. NEB ONE (11:44)
[2016-03-26] MEDS: ACLIDINIUM BROMIDE 400 MCG/INH AERO.POWD IH SCH ×2 (11:45→21:53)
[2016-03-26] MEDS: ALBUTEROL SO4 0.083% IH SOL 2.5 MG/3 ML VIAL.NEB. NEB PRN (11:46)
[2016-03-26] MEDS: ALBUTEROL SO4 0.083% IH SOL 2.5 MG/3 ML VIAL.NEB. NEB SCH ×3 (11:54→23:30)
--- NOTE | 2016-03-26 13:29 | PN ---
Progress Note (short form) - Note Progress Note: PULMONARY CONSULTATION DICTATED 03/26/16 IMP ACUTE HYPOXEMIC/HYPERCAPNEIC RESPIRATORY FAILURE PNEUMONIA COPD CHF PULMONARY HTN LIKELY OSAS HYPONATREMIA MORBID OBESITY PLAN BIPAP O2 TO MAINTAIN SAT 90% OR GREATER ANTIBIOTICS INHALED BRONCHODILATORS IV STEROIDS IV LASIX CHEST CT DAILY WTS MONITOR LYTES,NA SPUTUM C+S DR SOSA Problem List - Problems (1) Abdominal obesity Code(s): E65 - LOCALIZED ADIPOSITY (2) COPD exacerbation Code(s): J44.1 - CHRONIC OBSTRUCTIVE PULMONARY DISEASE W (ACUTE) EXACERBATION (3) HTN (hypertension) Code(s): I10 - ESSENTIAL (PRIMARY) HYPERTENSION (4) Hyponatremia Code(s): E87.1 - HYPO-OSMOLALITY AND HYPONATREMIA (5) Pneumonia Code(s): J18.9 - PNEUMONIA, UNSPECIFIED ORGANISM Qualifiers: Pneumonia type: due to unspecified organism Laterality: right Lung location: lower lobe of lung Qualified Code(s): J18.9 - Pneumonia, unspecified organism (6) Volume overload Code(s): E87.70 - FLUID OVERLOAD, UNSPECIFIED (7) Pulmonary HTN Code(s): I27.2 - OTHER SECONDARY PULMONARY HYPERTENSION (8) Acute respiratory failure with hypoxia and hypercapnia Code(s): J96.01 - ACUTE RESPIRATORY FAILURE WITH HYPOXIA J96.02 - ACUTE RESPIRATORY FAILURE WITH HYPERCAPNIA (9) Sleep apnea, obstructive Code(s): G47.33 - OBSTRUCTIVE SLEEP APNEA (ADULT) (PEDIATRIC)
[2016-03-26] MEDS ORDERED: FUROSEMIDE 40 MG TABLET (FP) PO SCH (14:00)
[2016-03-26] MEDS ORDERED: PNEUMOCOCCAL 23 VACCINE 0.5 ML VIAL IM ONE (16:00)
--- NOTE | 2016-03-26 16:09 | CONS ---
DATE OF CONSULTATION: 03/26/2016 PULMONARY CONSULTATION REFERRING PHYSICIAN: Gurwinder Roberts M.D. HISTORY OF PRESENT ILLNESS: The patient is a 60-year-old white female with a significant past medical history admitted to [facility] with complaints of increasing shortness of breath, dyspnea on exertion, and cough. Patient states approximately a month ago she started developing some sinus congestion. At the time, she went to see one of her physicians who placed her on nasal steroid and antihistamines. At the time, she thought she had allergies. Approximately 2 or 3 weeks prior to this, she started noticing increasing lower extremity edema. She states that she went to a single pointed operator who placed her on Lasix. For the past week and a half or so, she started noticing increasing shortness of breath and dyspnea on exertion. She also had a cough productive of rust colored sputum. Denies any fevers, chills, nausea, vomiting, diaphoresis. Denies any chest pain or palpitations. States that she may have coughed up a little bit of blood mixed with sputum. She denies any history of COPD or asthma in the past. She has a longstanding history of tobacco use, 1-2 packs per day, for many years, quit a year ago. She also states that she sleeps on 2 pillows and cannot lay flat secondary to shortness of breath. She states she is a heavy snorer, has excessive daytime sleepiness. Denies any history of recent travel. There is no history of DVT or PE in the past. HOSPITAL COURSE: She presented to the emergency room in respiratory distress. She was placed on Lasix as well as inhaled bronchodilators and steroids and BiPAP and transferred up to floor for further management. PAST MEDICAL HISTORY: Again, denies any allergies, sinus complaints. PAST SURGICAL HISTORY: Denies any previous surgery. There is no history of occupational exposures. 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 REVIEW OF SYSTEMS: Positive orthopnea. Positive dyspnea. Positive cough. Positive sputum. No fever. No chills. No chest pain. No palpitations. No abdominal pain. Positive lower extremity edema. CURRENT MEDICATIONS: Include Symbicort, Solu-Medrol, and Zithromax. She is on ceftriaxone, Lovenox, Nelson, albuterol, Norvasc, Lasix. PHYSICAL EXAMINATION: General: The patient is an obese female, but awake, alert. Dyspneic on BiPAP. Vital signs: She is currently afebrile. Blood pressure 133/74, respiratory rate 26, and O2 saturation is 100% on BiPAP, 100% O2. HEENT: Head is normocephalic, atraumatic. Neck: Supple. Heart: Tachycardic. S1, S2. Chest: Bilateral wheezes, rhonchi, bibasilar crackles. Abdomen: Soft. Bowel sounds positive. Extremities: Bilateral lower extremity edema. LABORATORY: Sodium 131, potassium 5.5, lactate level on admission is 2.58 currently 1.453, glucose is 165. BNP is 497. Blood gas: pH of 7.30, pCO2 of 64, pO2 of 92, bicarbonate of 30 and saturating 95.7, that is on 100% oxygen, BiPAP with respiratory rate of 14, BiPAP of 12 and EPAP is 6. WBC 10.8, hemoglobin 15.1, hematocrit 35.6, platelet count 233,000. Echo reveals dilated right RV pulmonary hypertension with right ventricular systolic pressure of 40 to 50. Chest x-ray reveals increased pulmonary vascular markings bilaterally, bilateral infiltrates. IMPRESSION: Acute hypoxemic hypercapnic respiratory failure, likely secondary to multiple factors: 1. Community acquired pneumonia. 2. Advanced chronic obstructive pulmonary disease secondary to longstanding history of tobacco use. 3. Congestive heart failure. 4. Pulmonary hypertension. 5. Likely obstructive sleep apnea syndrome. 6. Hyponatremia. PLAN: Supplemental BiPAP, follow ABGs, Lasix, and broad-spectrum antibiotics for community acquired pneumonia, daily weights, CT scan of chest unstable, sleep study as outpatient, monitor sodium level, also lower extremity duplex, and consider CTA when stable. Also monitor electrolytes SUYAPA SOSA M.D. [id number]
[2016-03-26] MEDS: methylPREDNISolone NA SUCC 125 MG/2 ML VIAL IVPB SCH ×2 (16:38→21:48)
[2016-03-26] MEDS: FUROSEMIDE 40 MG/4 ML INJECTABLE VIAL IVPUSH SCH (16:45)
[2016-03-26] MEDS ORDERED: PT OWN MED DRAWER 7, Y5N ONE (21:51)
[2016-03-27] MEDS: methylPREDNISolone NA SUCC 125 MG/2 ML VIAL IVPB SCH ×4 (02:45→21:32)
[2016-03-27] MEDS: ALBUTEROL SO4 0.083% IH SOL 2.5 MG/3 ML VIAL.NEB. NEB SCH ×3 (06:13→18:55)
[2016-03-27 07:48] LABS: MCH 36.4 pg (25.7-33.7); MEAN CELL VOLUME 110.3 fl (80-96); MEAN PLT VOLUME 7.1 fl (7.5-11.1); PLATELET COUNT 208 K/MM3 (134-434); RDW 13.8 % (11.6-15.6); WHITE BLOOD COUNT 11.7 K/mm3 (4.0-10.0)
[2016-03-27 08:27] LABS: CALCIUM 7.8 mg/dL (8.5-10.1); CREATININE 0.6 mg/dL (0.55-1.02); MAGNESIUM 2.3 mg/dL (1.8-2.4); PHOSPHOROUS 3.7 mg/dL (2.5-4.9)
[2016-03-27] MEDS: CEFTRIAXONE 50 ML IVPB SCH (09:41)
[2016-03-27] MEDS: AZITHROMYCIN IVPB 250 ML IVPB SCH (09:41)
[2016-03-27] MEDS: ENOXAPARIN NA (PORCINE) 40 MG/0.4 ML DISP.SYRIN SQ SCH (09:41)
[2016-03-27] MEDS: FUROSEMIDE 40 MG/4 ML INJECTABLE VIAL IVPUSH SCH (09:42)
[2016-03-27] MEDS: amLODIPine BESYLATE 5 MG TABLET (FP) PO SCH (09:42)
--- NOTE | 2016-03-27 09:58 | PN ---
Progress Note, Physician - Current Medication List Current Medications: Active Medications Aclidinium [place] (Tudorza -) 1 puff IH BID [facility] Last Admin: 03/26/16 21:53 Dose: 1 puff Albuterol Sulfate (Ventolin 0.083% Nebulizer Soln -) 1 amp NEB Q4H PRN PRN Reason: SHORT OF BREATH/WHEEZING Last Admin: 03/26/16 11:46 Dose: 1 amp Albuterol Sulfate (Ventolin 0.083% Nebulizer Soln -) 1 amp NEB QIDR [facility] Last Admin: 03/27/16 06:13 Dose: 1 amp Amlodipine Besylate (Norvasc -) 5 mg PO DAILY [facility] Last Admin: 03/27/16 09:42 Dose: 5 mg Budesonide/Formoterol Fumarate (Symbicort 160/4.5mcg -) 2 puff IH BID [facility] Last Admin: 03/26/16 21:52 Dose: 2 puff Enoxaparin Sodium (Lovenox -) 40 mg SQ DAILY [facility] Last Admin: 03/27/16 09:41 Dose: 40 mg Furosemide (Lasix Injection -) 40 mg IVPUSH DAILY [facility] Last Admin: 03/27/16 09:42 Dose: 40 mg Azithromycin (Zithromax 500mg Ivpb (Pre-Docked)) 250 mls @ 250 mls/hr IVPB DAILY [facility] Last Admin: 03/27/16 09:41 Dose: 250 mls/hr Ceftriaxone Sodium (Rocephin 1gm Ivpb (Pre-Docked)) 50 mls @ 100 mls/hr IVPB DAILY [facility] Last Admin: 03/27/16 09:41 Dose: 100 mls/hr Methylprednisolone Sodium Succinate (Solu-Medrol -) 60 mg IVPB Q6H-IV [facility] Last Admin: 03/27/16 09:42 Dose: 60 mg - Objective Vital Signs: Vital Signs Temperature 98.1 F 03/27/16 09:39 Pulse Rate 90 03/27/16 09:39 Respiratory Rate 25 H 03/27/16 09:39 Blood Pressure 128/68 03/27/16 09:39 O2 Sat by Pulse Oximetry (%) 97 03/27/16 06:13 Constitutional: Yes: Well Nourished, No Distress, Calm Eyes: Yes: WNL, Conjunctiva Clear HENT: Yes: WNL, Atraumatic, Normocephalic Neck: Yes: WNL, Supple, Trachea Midline Cardiovascular: Yes: WNL, Regular Rate and Rhythm Respiratory: Yes: Rhonchi, Wheezes (much improved from yesterday) Gastrointestinal: Yes: WNL, Normal Bowel Sounds Musculoskeletal: Yes: WNL Extremities: Yes: WNL Edema: No Integumentary: Yes: WNL Neurological: Yes: WNL, Alert, Oriented ...Motor Strength: WNL Psychiatric: Yes: WNL Labs: CBC, BMP 03/27/16 05:55 03/27/16 05:55 Impression/Plan Impression/Plan: 60 year old woman admitted for acute COPD exacerbation COPD -pt was told she had weak lungs after PFT's but has not seen broach grinder as of late -has wheezing on exam and extensive smoking history -was on BiPAP overnight and treated with steroids; now more comfortable and wheezing is improved -repeat ABG -cont ceftriaxone/azithromycin for possible community acquired pneumonia -started spiriva -cont symbicort -follow up pulm consult Visit type - Emergency Visit Emergency Visit: Yes ED Registration Date: 03/26/16 Care time: The patient presented to the Emergency Department on the above date and was hospitalized for further evaluation of their emergent condition. - New Patient This patient is new to me today: No - Critical Care Critical Care patient: No
[2016-03-27] MEDS ORDERED: FUROSEMIDE 40 MG TABLET (FP) PO SCH (10:00)
[2016-03-27 10:40] LABS: ALLENS TEST POSITIVE; ART PUNCT SITE RIGHT RADIAL; ARTERIAL BLD GAS O2 SATURATION 78.9 % (90-98.9); ARTERIAL BLOOD GAS BASE EXCESS 5.8 meq/l (-2-2); ARTERIAL BLOOD GAS HCO3 32.9 meq/L (22-26); ARTERIAL BLOOD GAS pH 7.35 (7.35-7.45); LPM/O2% 4L; PT. ON O2? YES
[2016-03-27 10:41] LABS: ARTERIAL BLOOD GAS PO2 47.8 mmHg (80-100); TYPE OF O2 NASAL CANNULA
--- NOTE | 2016-03-27 12:34 | PN ---
Progress Note (short form) - Note Progress Note: Awake and alert on BiPAP. Feels better than yesterday. No CP. Intake & Output 03/24/16 03/25/16 03/26/16 03/27/16 23:59 23:59 23:59 23:59 Intake Total 620 Balance 620 Weight 260 lb 270 lb Last Vital Signs Temp Pulse Resp BP Pulse Ox 98.1 F 86 25 H 128/68 98 03/27/16 09:39 03/27/16 12:13 03/27/16 09:39 03/27/16 09:39 03/27/16 12:13 Active Medications Aclidinium [place] (Tudorza -) 1 puff IH BID [facility] Last Admin: 03/26/16 21:53 Dose: 1 puff Albuterol Sulfate (Ventolin 0.083% Nebulizer Soln -) 1 amp NEB Q4H PRN PRN Reason: SHORT OF BREATH/WHEEZING Last Admin: 03/26/16 11:46 Dose: 1 amp Albuterol Sulfate (Ventolin 0.083% Nebulizer Soln -) 1 amp NEB QIDR [facility] Last Admin: 03/27/16 06:13 Dose: 1 amp Amlodipine Besylate (Norvasc -) 5 mg PO DAILY [facility] Last Admin: 03/27/16 09:42 Dose: 5 mg Budesonide/Formoterol Fumarate (Symbicort 160/4.5mcg -) 2 puff IH BID [facility] Last Admin: 03/26/16 21:52 Dose: 2 puff Enoxaparin Sodium (Lovenox -) 40 mg SQ DAILY [facility] Last Admin: 03/27/16 09:41 Dose: 40 mg Furosemide (Lasix Injection -) 40 mg IVPUSH DAILY [facility] Last Admin: 03/27/16 09:42 Dose: 40 mg Azithromycin (Zithromax 500mg Ivpb (Pre-Docked)) 250 mls @ 250 mls/hr IVPB DAILY [facility] Last Admin: 03/27/16 09:41 Dose: 250 mls/hr Ceftriaxone Sodium (Rocephin 1gm Ivpb (Pre-Docked)) 50 mls @ 100 mls/hr IVPB DAILY [facility] Last Admin: 03/27/16 09:41 Dose: 100 mls/hr Methylprednisolone Sodium Succinate (Solu-Medrol -) 60 mg IVPB Q6H-IV [facility] Last Admin: 03/27/16 09:42 Dose: 60 mg Problem List - Problems (1) Abdominal obesity Code(s): E65 - LOCALIZED ADIPOSITY (2) COPD exacerbation Code(s): J44.1 - CHRONIC OBSTRUCTIVE PULMONARY DISEASE W (ACUTE) EXACERBATION (3) HTN (hypertension) Code(s): I10 - ESSENTIAL (PRIMARY) HYPERTENSION (4) Hyponatremia Code(s): E87.1 - HYPO-OSMOLALITY AND HYPONATREMIA (5) Pneumonia Code(s): J18.9 - PNEUMONIA, UNSPECIFIED ORGANISM Qualifiers: Pneumonia type: due to unspecified organism Laterality: right Lung location: lower lobe of lung Qualified Code(s): J18.9 - Pneumonia, unspecified organism (6) Volume overload Code(s): E87.70 - FLUID OVERLOAD, UNSPECIFIED (7) Pulmonary HTN Code(s): I27.2 - OTHER SECONDARY PULMONARY HYPERTENSION (8) Acute respiratory failure with hypoxia and hypercapnia Code(s): J96.01 - ACUTE RESPIRATORY FAILURE WITH HYPOXIA J96.02 - ACUTE RESPIRATORY FAILURE WITH HYPERCAPNIA (9) Sleep apnea, obstructive Code(s): G47.33 - OBSTRUCTIVE SLEEP APNEA (ADULT) (PEDIATRIC) IMP ACUTE HYPOXEMIC/HYPERCAPNEIC RESPIRATORY FAILURE PNEUMONIA COPD CHF PULMONARY HTN LIKELY OSAS HYPONATREMIA MORBID OBESITY PLAN BIPAP ADJUSTED O2 TO MAINTAIN SAT 90% OR GREATER ANTIBIOTICS INHALED BRONCHODILATORS IV STEROIDS IV LASIX CHEST CT ORDERED DAILY WTS SPUTUM C+S DR ZALDIVAR
[2016-03-27] MEDS ORDERED: PT OWN MED DRAWER 7, Y5N ONE (13:46)
[2016-03-27] MEDS: BUDESONIDE/FORMETEROL FUMARATE 160/4.5 mcg INHALER IH SCH ×2 (14:16→21:32)
[2016-03-27] MEDS: ACLIDINIUM BROMIDE 400 MCG/INH AERO.POWD IH SCH ×2 (14:16→21:32)
[2016-03-28] MEDS: ALBUTEROL SO4 0.083% IH SOL 2.5 MG/3 ML VIAL.NEB. NEB SCH ×4 (00:25→18:13)
[2016-03-28] MEDS: methylPREDNISolone NA SUCC 125 MG/2 ML VIAL IVPB SCH ×3 (03:50→17:29)
[2016-03-28] MEDS ORDERED: PT OWN MED DRAWER 7, Y5N ONE (08:12)
[2016-03-28] MEDS: AZITHROMYCIN IVPB 250 ML IVPB SCH (09:26)
[2016-03-28] MEDS: FUROSEMIDE 40 MG/4 ML INJECTABLE VIAL IVPUSH SCH (09:26)
[2016-03-28] MEDS: amLODIPine BESYLATE 5 MG TABLET (FP) PO SCH (09:27)
[2016-03-28] MEDS: ENOXAPARIN NA (PORCINE) 40 MG/0.4 ML DISP.SYRIN SQ SCH (09:27)
[2016-03-28] MEDS: BUDESONIDE/FORMETEROL FUMARATE 160/4.5 mcg INHALER IH SCH ×2 (09:28→21:15)
[2016-03-28] MEDS: ACLIDINIUM BROMIDE 400 MCG/INH AERO.POWD IH SCH ×2 (09:29→21:15)
[2016-03-28] MEDS: CEFTRIAXONE 50 ML IVPB SCH (09:30)
--- NOTE | 2016-03-28 12:52 | PN ---
Progress Note, Physician - Current Medication List Current Medications: Active Medications Aclidinium [place] (Tudorza -) 1 puff IH BID [facility] Last Admin: 03/28/16 09:29 Dose: 1 puff Albuterol Sulfate (Ventolin 0.083% Nebulizer Soln -) 1 amp NEB Q4H PRN PRN Reason: SHORT OF BREATH/WHEEZING Last Admin: 03/26/16 11:46 Dose: 1 amp Albuterol Sulfate (Ventolin 0.083% Nebulizer Soln -) 1 amp NEB QIDR [facility] Last Admin: 03/28/16 12:44 Dose: 1 amp Amlodipine Besylate (Norvasc -) 5 mg PO DAILY [facility] Last Admin: 03/28/16 09:27 Dose: 5 mg Budesonide/Formoterol Fumarate (Symbicort 160/4.5mcg -) 2 puff IH BID [facility] Last Admin: 03/28/16 09:28 Dose: 2 puff Enoxaparin Sodium (Lovenox -) 40 mg SQ DAILY [facility] Last Admin: 03/28/16 09:27 Dose: 40 mg Azithromycin (Zithromax 500mg Ivpb (Pre-Docked)) 250 mls @ 250 mls/hr IVPB DAILY [facility] Last Admin: 03/28/16 09:26 Dose: 250 mls/hr Ceftriaxone Sodium (Rocephin 1gm Ivpb (Pre-Docked)) 50 mls @ 100 mls/hr IVPB DAILY [facility] Last Admin: 03/28/16 09:30 Dose: 100 mls/hr Methylprednisolone Sodium Succinate (Solu-Medrol -) 60 mg IVPB Q8H-IV [facility] - Objective Vital Signs: Vital Signs Temperature 97.7 F 03/28/16 06:00 Pulse Rate 82 03/28/16 09:23 Respiratory Rate 18 03/28/16 09:23 Blood Pressure 126/72 03/28/16 09:23 O2 Sat by Pulse Oximetry (%) 97 03/28/16 09:00 Constitutional: Yes: Well Nourished, No Distress, Calm Eyes: Yes: WNL, Conjunctiva Clear HENT: Yes: WNL, Atraumatic, Normocephalic Neck: Yes: WNL, Supple, Trachea Midline Cardiovascular: Yes: WNL, Regular Rate and Rhythm Respiratory: Yes: Wheezes Gastrointestinal: Yes: WNL, Normal Bowel Sounds Musculoskeletal: Yes: WNL Extremities: Yes: WNL Edema: No Integumentary: Yes: WNL Neurological: Yes: WNL, Alert, Oriented ...Motor Strength: WNL Psychiatric: Yes: WNL Labs: CBC, BMP 03/27/16 05:55 03/27/16 05:55 Impression/Plan Impression/Plan: 60 year old woman admitted for acute COPD exacerbation COPD -pt was told she had weak lungs after PFT's but has not seen facility environmental technician as of late -wheezing on exam has improved -decreased solumedrol to 60 Q8 -cont ceftriaxone/azithromycin for possible community acquired pneumonia -cont turdoza -cont symbicort Visit type - Emergency Visit Emergency Visit: Yes ED Registration Date: 03/26/16 Care time: The patient presented to the Emergency Department on the above date and was hospitalized for further evaluation of their emergent condition. - New Patient This patient is new to me today: No - Critical Care Critical Care patient: No
--- NOTE | 2016-03-28 14:03 | PN ---
Progress Note (short form) - Note Progress Note: Awake and alert on 4 L NC O2. Feels better than yesterday. Less SOB. No CP. CXR: No significant change Intake & Output 03/25/16 03/26/16 03/27/16 03/28/16 23:59 23:59 23:59 23:59 Intake Total 620 700 50 Output Total 300 Balance 620 700 -250 Weight 260 lb 270 lb Last Vital Signs Temp Pulse Resp BP Pulse Ox 97.7 F 82 18 126/72 97 03/28/16 06:00 03/28/16 09:23 03/28/16 09:23 03/28/16 09:23 03/28/16 09:00 Active Medications Aclidinium [place] (Tudorza -) 1 puff IH BID [facility] Last Admin: 03/28/16 09:29 Dose: 1 puff Albuterol Sulfate (Ventolin 0.083% Nebulizer Soln -) 1 amp NEB Q4H PRN PRN Reason: SHORT OF BREATH/WHEEZING Last Admin: 03/26/16 11:46 Dose: 1 amp Albuterol Sulfate (Ventolin 0.083% Nebulizer Soln -) 1 amp NEB QIDR [facility] Last Admin: 03/28/16 12:44 Dose: 1 amp Amlodipine Besylate (Norvasc -) 5 mg PO DAILY [facility] Last Admin: 03/28/16 09:27 Dose: 5 mg Budesonide/Formoterol Fumarate (Symbicort 160/4.5mcg -) 2 puff IH BID [facility] Last Admin: 03/28/16 09:28 Dose: 2 puff Enoxaparin Sodium (Lovenox -) 40 mg SQ DAILY [facility] Last Admin: 03/28/16 09:27 Dose: 40 mg Azithromycin (Zithromax 500mg Ivpb (Pre-Docked)) 250 mls @ 250 mls/hr IVPB DAILY [facility] Last Admin: 03/28/16 09:26 Dose: 250 mls/hr Ceftriaxone Sodium (Rocephin 1gm Ivpb (Pre-Docked)) 50 mls @ 100 mls/hr IVPB DAILY [facility] Last Admin: 03/28/16 09:30 Dose: 100 mls/hr Methylprednisolone Sodium Succinate (Solu-Medrol -) 60 mg IVPB Q8H-IV [facility] Problem List - Problems (1) Abdominal obesity Code(s): E65 - LOCALIZED ADIPOSITY (2) COPD exacerbation Code(s): J44.1 - CHRONIC OBSTRUCTIVE PULMONARY DISEASE W (ACUTE) EXACERBATION (3) HTN (hypertension) Code(s): I10 - ESSENTIAL (PRIMARY) HYPERTENSION (4) Hyponatremia Code(s): E87.1 - HYPO-OSMOLALITY AND HYPONATREMIA (5) Pneumonia Code(s): J18.9 - PNEUMONIA, UNSPECIFIED ORGANISM Qualifiers: Pneumonia type: due to unspecified organism Laterality: right Lung location: lower lobe of lung Qualified Code(s): J18.9 - Pneumonia, unspecified organism (6) Volume overload Code(s): E87.70 - FLUID OVERLOAD, UNSPECIFIED (7) Pulmonary HTN Code(s): I27.2 - OTHER SECONDARY PULMONARY HYPERTENSION (8) Acute respiratory failure with hypoxia and hypercapnia Code(s): J96.01 - ACUTE RESPIRATORY FAILURE WITH HYPOXIA J96.02 - ACUTE RESPIRATORY FAILURE WITH HYPERCAPNIA (9) Sleep apnea, obstructive Code(s): G47.33 - OBSTRUCTIVE SLEEP APNEA (ADULT) (PEDIATRIC) IMP ACUTE HYPOXEMIC/HYPERCAPNEIC RESPIRATORY FAILURE PNEUMONIA COPD CHF PULMONARY HTN LIKELY OSAS HYPONATREMIA MORBID OBESITY PLAN BIPAP QHS & PRN O2 TO MAINTAIN SAT 88% OR GREATER ANTIBIOTICS INHALED BRONCHODILATORS IV STEROIDS IV LASIX DAILY WTS HOLD CT CHEST DUE TO SIGNIFICANT CLINICAL IMPROVEMENT DR ZALDIVAR
[2016-03-28] MEDS: ACETAMINOPHEN 325 MG TABLET (FP) PO PRN (21:16)
[2016-03-29] MEDS: methylPREDNISolone NA SUCC 125 MG/2 ML VIAL IVPB SCH ×2 (02:08→10:05)
[2016-03-29] MEDS: ALBUTEROL SO4 0.083% IH SOL 2.5 MG/3 ML VIAL.NEB. NEB SCH ×4 (06:40→17:50)
[2016-03-29] MEDS ORDERED: PT OWN MED DRAWER 7, Y5N ONE ×2 (09:55→21:08)
[2016-03-29] MEDS: CEFTRIAXONE 50 ML IVPB SCH (10:00)
[2016-03-29] MEDS: ENOXAPARIN NA (PORCINE) 40 MG/0.4 ML DISP.SYRIN SQ SCH (10:05)
[2016-03-29] MEDS: amLODIPine BESYLATE 5 MG TABLET (FP) PO SCH (10:05)
[2016-03-29] MEDS: AZITHROMYCIN IVPB 250 ML IVPB SCH (10:05)
[2016-03-29] MEDS: BUDESONIDE/FORMETEROL FUMARATE 160/4.5 mcg INHALER IH SCH ×2 (10:06→21:38)
[2016-03-29] MEDS: ACLIDINIUM BROMIDE 400 MCG/INH AERO.POWD IH SCH ×2 (10:06→21:38)
--- NOTE | 2016-03-29 10:42 | PN ---
<Della Noguera - Last Filed: 03/29/16 11:38> Physical Exam: SUBJECTIVE: Patient seen and examined Patient resting in bed, NAD. Afebrile and hemodynamically stable. No acute events overnight. Feels better. didnt wear bipap at night. wearing 2lNC, ambulating to wathroom without SOB. states her cought productive of green sputum is improved, wheezing and sob also improved. Deneis h/a, chest pain, sob , n/v, abd pain , diarrhea, cough, rhinorrhea. OBJECTIVE: Vital Signs Period Temp Pulse Resp BP Sys/Pride Pulse Ox Last 24 Hr 97.0 F-99.7 F 84-98 18-20 117-153/53-90 95-99 GENERAL: The patient is awake, alert, and fully oriented, mild distress HEAD: Normal with no signs of trauma. EYES: PERRL, extraocular movements intact, sclera anicteric, conjunctiva clear. ENT: moist mucous membranes. NECK: supple. LUNGS: restricted air movement. mild wheezes. HEART: Regular rate and rhythm, S1, S2 ABDOMEN: Soft, nontender, nondistended, normoactive bowel sounds EXTREMITIES: 2+ pulses, warm, well-perfused, 1+ b/l LE edema (patisnt states this is better than baseline) . NEUROLOGICAL: Cranial nerves II through XII grossly intact. Normal speech, gait not observed. PSYCH: Normal mood, normal affect. SKIN: Warm, dry Active Medications Generic Name Dose Route Start Last Admin Trade Name Freq PRN Reason Stop Dose Admin Acetaminophen 325 mg 03/28/16 17:31 03/28/16 21:16 Tylenol - PO 325 mg Q6H PRN Administration FEVER OR PAIN Aclidinium [place] 1 puff 03/26/16 11:00 03/29/16 10:06 Tudorza - IH 1 puff BID ASHTYN Administration Albuterol Sulfate 1 amp 03/26/16 10:36 03/26/16 11:46 Ventolin 0.083% Nebulizer Soln - NEB 1 amp Q4H PRN Administration SHORT OF BREATH/WHEEZING Albuterol Sulfate 1 amp 03/26/16 12:00 03/29/16 06:40 Ventolin 0.083% Nebulizer Soln - NEB 1 amp QIDR ASHTYN Administration Amlodipine Besylate 5 mg 03/26/16 10:00 03/29/16 10:05 Norvasc - PO 5 mg DAILY ASHTYN Administration Budesonide/Formoterol Fumarate 2 puff 03/26/16 10:45 03/29/16 10:06 Symbicort 160/4.5mcg - IH 2 puff BID ASHTYN Administration Enoxaparin Sodium 40 mg 03/26/16 10:00 03/29/16 10:05 Lovenox - SQ 40 mg DAILY ASHTYN Administration Azithromycin 250 mls @ 250 mls/hr 03/26/16 10:00 03/29/16 10:05 Zithromax 500mg Ivpb (Pre-Docked) IVPB 250 mls/hr DAILY ASHTYN Administration Ceftriaxone Sodium 50 mls @ 100 mls/hr 03/26/16 10:00 03/29/16 10:00 Rocephin 1gm Ivpb (Pre-Docked) IVPB 100 mls/hr DAILY ASHTYN Administration Methylprednisolone Sodium Succinate 60 mg 03/28/16 18:00 03/29/16 10:05 Solu-Medrol - IVPB 60 mg Q8H-IV ASHTYN Administration ASSESSMENT/PLAN: 60 year old female with significant past medical hx of HTN presented to the ED with chief complaints of SOB x 1 week. Acute on chronic COPD exacerbation due to PNA -likely viral URI preceding bacterial superinfection -History of pulmonary function test indicative of COPD (heady smoker past) -+ wheezing, RLL infiltrate on CXR -respiratory acidosis on admission -Blood culture negative -Urine for legionella negative -Nasopharyngeal swab negative for flu -sputum negatvie -continue azitho, rocephin day 4 -medrol IV 60 Q8 -symbicort ashtyn -tudorza ashtyn -albuterol ASHTYN and PRN -Improving -Pre and post exercise O2 measurement today Elevated troponin -most likely demand ischemia -EKG RBBB, no ACS -recent negative stress test -resolved Moderate Hyponatremia -Na 128, now 131 -fluid overload -resolved HTN -Continue Amlodipine 5mg Daily Sleep apnea -f/u outpatient sleep study FEN No IVF lytes stabke DVT GI PPX: SCD, Geronimo, diet Na restricted diet Dispo: Admitted in Med-surg. Problem List - Problems (1) Pneumonia Code(s): J18.9 - PNEUMONIA, UNSPECIFIED ORGANISM Qualifiers: Pneumonia type: due to unspecified organism Laterality: right Lung location: lower lobe of lung Qualified Code(s): J18.9 - Pneumonia, unspecified organism (2) COPD exacerbation Code(s): J44.1 - CHRONIC OBSTRUCTIVE PULMONARY DISEASE W (ACUTE) EXACERBATION (3) HTN (hypertension) Code(s): I10 - ESSENTIAL (PRIMARY) HYPERTENSION (4) Volume overload Code(s): E87.70 - FLUID OVERLOAD, UNSPECIFIED (5) Abdominal obesity Code(s): E65 - LOCALIZED ADIPOSITY (6) Elevated troponin Code(s): R79.89 - OTHER SPECIFIED ABNORMAL FINDINGS OF BLOOD CHEMISTRY (7) Hyponatremia Code(s): E87.1 - HYPO-OSMOLALITY AND HYPONATREMIA Visit type - Emergency Visit Emergency Visit: Yes ED Registration Date: 03/26/16 Care time: The patient presented to the Emergency Department on the above date and was hospitalized for further evaluation of their emergent condition. - New Patient This patient is new to me today: No - Critical Care Critical Care patient: No - Discharge Referral Referred to [facility] Med P.C.: No <Gurwinder Roberts - Last Filed: 03/29/16 19:00> Physical Exam: ATTENDING PHYSICIAN STATEMENT I saw and evaluated the patient. I reviewed the resident's note and discussed the case with the resident. I agree with the resident's findings and plan as documented. 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
--- NOTE | 2016-03-29 11:18 | PN ---
Progress Note, Physician History of Present Illness: PULMONARY ALERT,FEELING BETTER,LESS DYSPNEIC,OOB- WHEELCHAIR. O2 SAT 92% ON NASAL CANNULA - Current Medication List Current Medications: Active Medications Acetaminophen (Tylenol -) 325 mg PO Q6H PRN PRN Reason: FEVER OR PAIN Last Admin: 03/28/16 21:16 Dose: 325 mg Aclidinium [place] (Tudorza -) 1 puff IH BID [facility] Last Admin: 03/29/16 10:06 Dose: 1 puff Albuterol Sulfate (Ventolin 0.083% Nebulizer Soln -) 1 amp NEB Q4H PRN PRN Reason: SHORT OF BREATH/WHEEZING Last Admin: 03/26/16 11:46 Dose: 1 amp Albuterol Sulfate (Ventolin 0.083% Nebulizer Soln -) 1 amp NEB QIDR [facility] Last Admin: 03/29/16 06:40 Dose: 1 amp Amlodipine Besylate (Norvasc -) 5 mg PO DAILY [facility] Last Admin: 03/29/16 10:05 Dose: 5 mg Budesonide/Formoterol Fumarate (Symbicort 160/4.5mcg -) 2 puff IH BID [facility] Last Admin: 03/29/16 10:06 Dose: 2 puff Enoxaparin Sodium (Lovenox -) 40 mg SQ DAILY [facility] Last Admin: 03/29/16 10:05 Dose: 40 mg Azithromycin (Zithromax 500mg Ivpb (Pre-Docked)) 250 mls @ 250 mls/hr IVPB DAILY [facility] Last Admin: 03/29/16 10:05 Dose: 250 mls/hr Ceftriaxone Sodium (Rocephin 1gm Ivpb (Pre-Docked)) 50 mls @ 100 mls/hr IVPB DAILY [facility] Last Admin: 03/29/16 10:00 Dose: 100 mls/hr Methylprednisolone Sodium Succinate (Solu-Medrol -) 60 mg IVPB Q8H-IV [facility] Last Admin: 03/29/16 10:05 Dose: 60 mg - Objective Vital Signs: Vital Signs Temperature 97.6 F 03/29/16 09:00 Pulse Rate 98 H 03/29/16 09:00 Respiratory Rate 20 03/29/16 09:00 Blood Pressure 118/53 03/29/16 09:00 O2 Sat by Pulse Oximetry (%) 95 03/28/16 21:00 Constitutional: Yes: Calm, Obese Eyes: Yes: WNL HENT: Yes: WNL Neck: Yes: WNL Cardiovascular: Yes: Regular Rate and Rhythm, S1, S2 Respiratory: Yes: Diminished Gastrointestinal: Yes: Normal Bowel Sounds, Soft Extremities: Yes: WNL Edema: No Labs: Problem List - Problems (1) Abdominal obesity Code(s): E65 - LOCALIZED ADIPOSITY (2) COPD exacerbation Code(s): J44.1 - CHRONIC OBSTRUCTIVE PULMONARY DISEASE W (ACUTE) EXACERBATION (3) HTN (hypertension) Code(s): I10 - ESSENTIAL (PRIMARY) HYPERTENSION (4) Hyponatremia Code(s): E87.1 - HYPO-OSMOLALITY AND HYPONATREMIA (5) Pneumonia Code(s): J18.9 - PNEUMONIA, UNSPECIFIED ORGANISM Qualifiers: Pneumonia type: due to unspecified organism Laterality: right Lung location: lower lobe of lung Qualified Code(s): J18.9 - Pneumonia, unspecified organism (6) Volume overload Code(s): E87.70 - FLUID OVERLOAD, UNSPECIFIED (7) Pulmonary HTN Code(s): I27.2 - OTHER SECONDARY PULMONARY HYPERTENSION (8) Acute respiratory failure with hypoxia and hypercapnia Code(s): J96.01 - ACUTE RESPIRATORY FAILURE WITH HYPOXIA J96.02 - ACUTE RESPIRATORY FAILURE WITH HYPERCAPNIA (9) Sleep apnea, obstructive Code(s): G47.33 - OBSTRUCTIVE SLEEP APNEA (ADULT) (PEDIATRIC) Assessment/Plan IMP ACUTE HYPOXEMIC/HYPERCAPNEIC RESPIRATORY FAILURE IMPROVING PNEUMONIA COPD CHF PULMONARY HTN LIKELY OSAS HYPONATREMIA MORBID OBESITY PLAN BIPAP O2 TO MAINTAIN SAT 90% OR GREATER ANTIBIOTICS INHALED BRONCHODILATORS TAPER STEROIDS DAILY WTS MONITOR TONI SHANKS SLEEP STUDIES OUTPATIENT DR SOSA
[2016-03-29] MEDS: ALBUTEROL SO4 0.083% IH SOL 2.5 MG/3 ML VIAL.NEB. NEB PRN (14:45)
[2016-03-29] MEDS: methylPREDNISolone NA SUCC 40 MG/1 ML VIAL IVPB SCH (18:03)
[2016-03-29] MEDS: ACETAMINOPHEN 325 MG TABLET (FP) PO PRN (21:40)
[2016-03-30] MEDS: methylPREDNISolone NA SUCC 40 MG/1 ML VIAL IVPB SCH ×3 (02:53→21:56)
[2016-03-30] MEDS: ALBUTEROL SO4 0.083% IH SOL 2.5 MG/3 ML VIAL.NEB. NEB SCH ×4 (06:15→18:35)
[2016-03-30] MEDS: ENOXAPARIN NA (PORCINE) 40 MG/0.4 ML DISP.SYRIN SQ SCH (09:28)
[2016-03-30] MEDS: amLODIPine BESYLATE 5 MG TABLET (FP) PO SCH (09:29)
[2016-03-30] MEDS: CEFTRIAXONE 50 ML IVPB SCH (09:29)
[2016-03-30] MEDS: BUDESONIDE/FORMETEROL FUMARATE 160/4.5 mcg INHALER IH SCH ×2 (09:29→21:56)
[2016-03-30] MEDS: ACLIDINIUM BROMIDE 400 MCG/INH AERO.POWD IH SCH ×2 (09:29→21:56)
[2016-03-30] MEDS: AZITHROMYCIN IVPB 250 ML IVPB SCH (09:30)
--- NOTE | 2016-03-30 10:50 | PN ---
Progress Note, Physician History of Present Illness: PULMONARY ALERT,REMAINS HYPOXEMIC ON O2 - Current Medication List Current Medications: Active Medications Acetaminophen (Tylenol -) 325 mg PO Q6H PRN PRN Reason: FEVER OR PAIN Last Admin: 03/29/16 21:40 Dose: 325 mg Aclidinium [place] (Tudorza -) 1 puff IH BID [facility] Last Admin: 03/30/16 09:29 Dose: 1 puff Albuterol Sulfate (Ventolin 0.083% Nebulizer Soln -) 1 amp NEB Q4H PRN PRN Reason: SHORT OF BREATH/WHEEZING Last Admin: 03/29/16 14:45 Dose: 1 amp Albuterol Sulfate (Ventolin 0.083% Nebulizer Soln -) 1 amp NEB QIDR [facility] Last Admin: 03/30/16 06:15 Dose: 1 amp Amlodipine Besylate (Norvasc -) 5 mg PO DAILY [facility] Last Admin: 03/30/16 09:29 Dose: 5 mg Budesonide/Formoterol Fumarate (Symbicort 160/4.5mcg -) 2 puff IH BID [facility] Last Admin: 03/30/16 09:29 Dose: 2 puff Enoxaparin Sodium (Lovenox -) 40 mg SQ DAILY [facility] Last Admin: 03/30/16 09:28 Dose: 40 mg Azithromycin (Zithromax 500mg Ivpb (Pre-Docked)) 250 mls @ 250 mls/hr IVPB DAILY [facility] Last Admin: 03/30/16 09:30 Dose: 250 mls/hr Ceftriaxone Sodium (Rocephin 1gm Ivpb (Pre-Docked)) 50 mls @ 100 mls/hr IVPB DAILY [facility] Last Admin: 03/30/16 09:29 Dose: 100 mls/hr Methylprednisolone Sodium Succinate (Solu-Medrol -) 40 mg IVPB Q8H-IV [facility] Last Admin: 03/30/16 09:29 Dose: 40 mg Pseudoephedrine HCl (Sudafed -) 30 mg PO Q6H PRN - Objective Vital Signs: Vital Signs Temperature 98 F 03/30/16 02:00 Pulse Rate 97 H 03/30/16 02:00 Respiratory Rate 20 03/30/16 02:00 Blood Pressure 130/87 03/30/16 02:00 O2 Sat by Pulse Oximetry (%) 94 L 03/30/16 02:00 Constitutional: Yes: Well Nourished, Calm, Obese Eyes: Yes: WNL HENT: Yes: WNL Neck: Yes: WNL Cardiovascular: Yes: Regular Rate and Rhythm, S1, S2 Respiratory: Yes: Diminished Gastrointestinal: Yes: WNL Extremities: Yes: WNL Edema: No Labs: - ....Imaging Cat Scan: Report Reviewed, Image Reviewed (-PE,BIBASILAR ATELECTATIC CHANGES) Problem List - Problems (1) Abdominal obesity Code(s): E65 - LOCALIZED ADIPOSITY (2) COPD exacerbation Code(s): J44.1 - CHRONIC OBSTRUCTIVE PULMONARY DISEASE W (ACUTE) EXACERBATION (3) HTN (hypertension) Code(s): I10 - ESSENTIAL (PRIMARY) HYPERTENSION (4) Hyponatremia Code(s): E87.1 - HYPO-OSMOLALITY AND HYPONATREMIA (5) Pneumonia Code(s): J18.9 - PNEUMONIA, UNSPECIFIED ORGANISM Qualifiers: Pneumonia type: due to unspecified organism Laterality: right Lung location: lower lobe of lung Qualified Code(s): J18.9 - Pneumonia, unspecified organism (6) Volume overload Code(s): E87.70 - FLUID OVERLOAD, UNSPECIFIED (7) Pulmonary HTN Code(s): I27.2 - OTHER SECONDARY PULMONARY HYPERTENSION (8) Acute respiratory failure with hypoxia and hypercapnia Code(s): J96.01 - ACUTE RESPIRATORY FAILURE WITH HYPOXIA J96.02 - ACUTE RESPIRATORY FAILURE WITH HYPERCAPNIA (9) Sleep apnea, obstructive Code(s): G47.33 - OBSTRUCTIVE SLEEP APNEA (ADULT) (PEDIATRIC) Assessment/Plan IMP ACUTE HYPOXEMIC/HYPERCAPNEIC RESPIRATORY FAILURE IMPROVING PNEUMONIA COPD CHF PULMONARY HTN LIKELY OSAS HYPONATREMIA MORBID OBESITY PLAN BIPAP O2 TO MAINTAIN SAT 90% OR GREATER ANTIBIOTICS INHALED BRONCHODILATORS TAPER STEROIDS DAILY WTS MONITOR LYTES,NA SLEEP STUDIES OUTPATIENT INCENTIVE SPIROMETER ABG DR SOSA
[2016-03-30 11:39] LABS: ARTERIAL BLD GAS O2 SATURATION 93.3 % (90-98.9); ARTERIAL BLOOD GAS BASE EXCESS 7.6 meq/l (-2-2); ARTERIAL BLOOD GAS HCO3 32.6 meq/L (22-26); ARTERIAL BLOOD GAS PO2 68.6 mmHg (80-100); ARTERIAL BLOOD GAS pH 7.45 (7.35-7.45)
[2016-03-30 11:42] LABS: ALLENS TEST POSITIVE; ART PUNCT SITE RIGHT RADIAL; LPM/O2% 2L; PT. ON O2? YES; TYPE OF O2 NASAL O2
--- NOTE | 2016-03-30 11:58 | PN ---
Addendum entered and electronically signed by Della Noguera RES 03/31/16 10: 26: Subjective: patient resting in bed NAD, afebrile and hemodynamically stable. No acute events overnight. States she feels better, less cough and sob. used bipap at night. denies chest tightness. Original Note: Physical Exam: SUBJECTIVE: Patient seen and examined OBJECTIVE: Vital Signs Period Temp Pulse Resp BP Sys/Pride Pulse Ox Last 24 Hr 97.7 F-98.4 F 79-100 18-20 130-144/70-88 85-95 GENERAL: The patient is awake, alert, and fully oriented, mild distress HEAD: Normal with no signs of trauma. EYES: PERRL, extraocular movements intact, sclera anicteric, conjunctiva clear. ENT: moist mucous membranes. NECK: supple. LUNGS: restricted air movement. mild wheezes. HEART: Regular rate and rhythm, S1, S2 ABDOMEN: Soft, nontender, nondistended, normoactive bowel sounds EXTREMITIES: 2+ pulses, warm, well-perfused, 1+ b/l LE edema (patisnt states this is better than baseline) . NEUROLOGICAL: Cranial nerves II through XII grossly intact. Normal speech, gait not observed. PSYCH: Normal mood, normal affect. SKIN: Warm, dry Laboratory Results - last 24 hr 03/30/16 11:35 Puncture Site Right radial ABG pH 7.45 ABG pCO2 at Pt Temp 47.4 H D ABG pO2 at Pt Temp 68.6 L D ABG HCO3 32.6 H ABG O2 Sat (Measured) 93.3 ABG O2 Content 20.1 ABG Base Excess 7.6 H Marques Test Positive O2 Delivery Device Nasal o2 Oxygen Flow Rate 2l Active Medications Generic Name Dose Route Start Last Admin Trade Name Freq PRN Reason Stop Dose Admin Acetaminophen 325 mg 03/28/16 17:31 03/29/16 21:40 Tylenol - PO 325 mg Q6H PRN Administration FEVER OR PAIN Aclidinium [place] 1 puff 03/26/16 11:00 03/30/16 09:29 Tudorza - IH 1 puff BID ASHTYN Administration Albuterol Sulfate 1 amp 03/26/16 10:36 03/29/16 14:45 Ventolin 0.083% Nebulizer Soln - NEB 1 amp Q4H PRN Administration SHORT OF BREATH/WHEEZING Albuterol Sulfate 1 amp 03/26/16 12:00 03/30/16 11:30 Ventolin 0.083% Nebulizer Soln - NEB 1 amp QIDR ASHTYN Administration Amlodipine Besylate 5 mg 03/26/16 10:00 03/30/16 09:29 Norvasc - PO 5 mg DAILY ASHTYN Administration Budesonide/Formoterol Fumarate 2 puff 03/26/16 10:45 03/30/16 09:29 Symbicort 160/4.5mcg - IH 2 puff BID ASHTYN Administration Enoxaparin Sodium 40 mg 03/26/16 10:00 03/30/16 09:28 Lovenox - SQ 40 mg DAILY ASHTYN Administration Azithromycin 250 mls @ 250 mls/hr 03/26/16 10:00 03/30/16 09:30 Zithromax 500mg Ivpb (Pre-Docked) IVPB 250 mls/hr DAILY ASHTYN Administration Ceftriaxone Sodium 50 mls @ 100 mls/hr 03/26/16 10:00 03/30/16 09:29 Rocephin 1gm Ivpb (Pre-Docked) IVPB 100 mls/hr DAILY ASHTYN Administration Methylprednisolone Sodium Succinate 40 mg 03/30/16 22:00 Solu-Medrol - IVPB BID ASHTYN Pseudoephedrine HCl 30 mg 03/30/16 08:30 Sudafed - PO Q6H PRN ASSESSMENT/PLAN: 60 year old female with significant past medical hx of HTN presented to the ED with chief complaints of SOB x 1 week. Acute on chronic COPD exacerbation due to PNA -likely viral URI preceding bacterial superinfection -History of pulmonary function test indicative of COPD (heady smoker past) -+ wheezing, RLL infiltrate on CXR -respiratory acidosis on admission -Blood culture negative -Urine for legionella negative -Nasopharyngeal swab negative for flu -sputum negatvie -continue azitho, rocephin day 4 -medrol IV 60 Q8 -symbicort ashtyn -tudorza ashtyn -albuterol ASHTYN and PRN -Improving -Pre and post exercise O2 measurement today -f/u chest CTA per Pulmonology Elevated troponin -most likely demand ischemia -EKG RBBB, no ACS -recent negative stress test -resolved Moderate Hyponatremia -Na 128, now 131 -fluid overload -resolved HTN -Continue Amlodipine 5mg Daily Sleep apnea -f/u outpatient sleep study FEN No IVF lytes stabke DVT GI PPX: SCD, Geronimo, diet Na restricted diet Dispo: Admitted in Med-surg. Problem List - Problems (1) Pneumonia Code(s): J18.9 - PNEUMONIA, UNSPECIFIED ORGANISM Qualifiers: Pneumonia type: due to unspecified organism Laterality: right Lung location: lower lobe of lung Qualified Code(s): J18.9 - Pneumonia, unspecified organism (2) COPD exacerbation Code(s): J44.1 - CHRONIC OBSTRUCTIVE PULMONARY DISEASE W (ACUTE) EXACERBATION (3) HTN (hypertension) Code(s): I10 - ESSENTIAL (PRIMARY) HYPERTENSION (4) Volume overload Code(s): E87.70 - FLUID OVERLOAD, UNSPECIFIED (5) Abdominal obesity Code(s): E65 - LOCALIZED ADIPOSITY (6) Elevated troponin Code(s): R79.89 - OTHER SPECIFIED ABNORMAL FINDINGS OF BLOOD CHEMISTRY (7) Hyponatremia Code(s): E87.1 - HYPO-OSMOLALITY AND HYPONATREMIA Visit type - Emergency Visit Emergency Visit: Yes ED Registration Date: 03/26/16 Care time: The patient presented to the Emergency Department on the above date and was hospitalized for further evaluation of their emergent condition. - New Patient This patient is new to me today: No - Critical Care Critical Care patient: No - Discharge Referral Referred to [facility] Med P.C.: No
--- NOTE | 2016-03-30 12:57 | PN ---
Teaching Attending Note Name of Resident: Della Noguera ATTENDING PHYSICIAN STATEMENT I saw and evaluated the patient. I reviewed the resident's note and discussed the case with the resident. I agree with the resident's findings and plan as documented. SUBJECTIVE:states breathing has improved. ambulating with minimal difficulty. productive cough has improved. denies CP, Fever, chills, N/V/C/D OBJECTIVE: Last Vital Signs Temp Pulse Resp BP Pulse Ox 98 F 79 20 130/87 93 L 03/30/16 02:00 03/30/16 11:30 03/30/16 09:00 03/30/16 02:00 03/30/16 11:30 General NAD CV S1 S2 RRR No murmur/rub/gallop Lungs decreased breath sounds poor inspiratory effort ASSESSMENT AND PLAN: 60yo F with PMH HTN presented to the ER and was admitted for further evaluation of their emergent condition 1. Acute hypoxic respiratory failure- due to acute COPD exacerbation vs PNA. questionable infiltrate RLL. CT chest pending. being treated empirically for PNA with Ceftriaxone/Azithromycin day 5. will d/c azithromycin after today. steroid taper to solumedrol 40mg BID. nebs prn. pulmonary on board. saturating 92% on 2L NC. check pre and post O2. 2. Hyponatremia- resolved 3. Lactic acidosis- resolved 4. R 9th rib subacute fracture- pain control 5. HTN- controlled. cont norvasc 6. DVT ppx- lovenox
[2016-03-30] MEDS: ALBUTEROL SO4 0.083% IH SOL 2.5 MG/3 ML VIAL.NEB. NEB PRN (15:44)
[2016-03-30] MEDS: ACETAMINOPHEN 325 MG TABLET (FP) PO PRN (22:01)
[2016-03-30] MEDS: PSEUDOEPHEDRINE HCL 30 MG TABLET PO PRN (22:39)
[2016-03-31] MEDS: ALBUTEROL SO4 0.083% IH SOL 2.5 MG/3 ML VIAL.NEB. NEB SCH ×4 (06:10→17:05)
[2016-03-31] MEDS ORDERED: PT OWN MED DRAWER 7, Y5N ONE (08:02)
[2016-03-31] MEDS: amLODIPine BESYLATE 5 MG TABLET (FP) PO SCH (09:29)
[2016-03-31] MEDS: ENOXAPARIN NA (PORCINE) 40 MG/0.4 ML DISP.SYRIN SQ SCH (09:29)
[2016-03-31] MEDS: CEFTRIAXONE 50 ML IVPB SCH (09:29)
[2016-03-31] MEDS: BUDESONIDE/FORMETEROL FUMARATE 160/4.5 mcg INHALER IH SCH ×2 (09:30→22:19)
[2016-03-31] MEDS: ACLIDINIUM BROMIDE 400 MCG/INH AERO.POWD IH SCH ×2 (09:30→22:19)
[2016-03-31] MEDS: methylPREDNISolone NA SUCC 40 MG/1 ML VIAL IVPB SCH (09:30)
--- NOTE | 2016-03-31 10:26 | PN ---
Physical Exam: SUBJECTIVE: Patient seen and examined Patient resting in bed NAD. No acute events overnight. Didnt use BIPAP at night. On 2L NC. states her breathing is a lot better, cough is reduced. Denies chest pain, h/a, n/v, abd pain, dysuria. OBJECTIVE: Vital Signs Period Temp Pulse Resp BP Sys/Pride Pulse Ox Last 24 Hr 96.8 F-97.5 F 79-97 18-22 109-146/62-75 93-97 GENERAL: The patient is awake, alert, and fully oriented, mild distress HEAD: Normal with no signs of trauma. EYES: PERRL, extraocular movements intact, sclera anicteric, conjunctiva clear. ENT: moist mucous membranes. NECK: supple. LUNGS: much better, cta b/l, no wheezes, mild air movement restriction HEART: Regular rate and rhythm, S1, S2 ABDOMEN: Soft, nontender, nondistended, normoactive bowel sounds EXTREMITIES: 2+ pulses, warm, well-perfused, 1+ b/l LE edema (patient states this is better than baseline) . NEUROLOGICAL: Cranial nerves II through XII grossly intact. Normal speech, gait not observed. PSYCH: Normal mood, normal affect. SKIN: Warm, dry Laboratory Results - last 24 hr 03/30/16 11:35 Puncture Site Right radial ABG pH 7.45 ABG pCO2 at Pt Temp 47.4 H D ABG pO2 at Pt Temp 68.6 L D ABG HCO3 32.6 H ABG O2 Sat (Measured) 93.3 ABG O2 Content 20.1 ABG Base Excess 7.6 H Marques Test Positive O2 Delivery Device Nasal o2 Oxygen Flow Rate 2l Active Medications Generic Name Dose Route Start Last Admin Trade Name Freq PRN Reason Stop Dose Admin Acetaminophen 325 mg 03/28/16 17:31 03/30/16 22:01 Tylenol - PO 325 mg Q6H PRN Administration FEVER OR PAIN Aclidinium [place] 1 puff 03/26/16 11:00 03/31/16 09:30 Tudorza - IH 1 puff BID ASHTYN Administration Albuterol Sulfate 1 amp 03/26/16 10:36 03/30/16 15:44 Ventolin 0.083% Nebulizer Soln - NEB 1 amp Q4H PRN Administration SHORT OF BREATH/WHEEZING Albuterol Sulfate 1 amp 03/26/16 12:00 03/31/16 06:10 Ventolin 0.083% Nebulizer Soln - NEB Not Given QIDR ASHTYN Amlodipine Besylate 5 mg 03/26/16 10:00 03/31/16 09:29 Norvasc - PO 5 mg DAILY ASHTYN Administration Budesonide/Formoterol Fumarate 2 puff 03/26/16 10:45 03/31/16 09:30 Symbicort 160/4.5mcg - IH 2 puff BID ASHTYN Administration Enoxaparin Sodium 40 mg 03/26/16 10:00 03/31/16 09:29 Lovenox - SQ 40 mg DAILY ASHTYN Administration Ceftriaxone Sodium 50 mls @ 100 mls/hr 03/26/16 10:00 03/31/16 09:29 Rocephin 1gm Ivpb (Pre-Docked) IVPB 100 mls/hr DAILY ASHTYN Administration Methylprednisolone Sodium Succinate 40 mg 03/31/16 10:21 Solu-Medrol - IVPB DAILY ASHTYN Pseudoephedrine HCl 30 mg 03/30/16 08:30 03/30/16 22:39 Sudafed - PO 30 mg Q6H PRN Administration ASSESSMENT/PLAN: 60 year old female with significant past medical hx of HTN presented to the ED with chief complaints of SOB x 1 week. Acute on chronic COPD exacerbation due to PNA -likely viral URI preceding bacterial superinfection -History of pulmonary function test indicative of COPD (heady smoker past) -+ wheezing, RLL infiltrate on CXR -mild R pleural effusion and atelectasis on CTA -respiratory acidosis on admission -Blood culture negative -Urine for legionella negative -Nasopharyngeal swab negative for flu -sputum negatvie -continue rocephin day 6 for total 7 days -medrol IV 40 daily -symbicort ashtyn -tudorza ashtyn -albuterol ASHTYN and PRN -Improving -pre and post exercise O2 measurement today Elevated troponin -most likely demand ischemia -EKG RBBB, no ACS -recent negative stress test -resolved Moderate Hyponatremia -resolved HTN -Continue Amlodipine 5mg Daily Sleep apnea -f/u outpatient sleep study FEN No IVF lytes stable DVT GI PPX: SCD, Geronimo, diet Na restricted diet Dispo: Admitted in Med-surg. Problem List - Problems (1) Pneumonia Code(s): J18.9 - PNEUMONIA, UNSPECIFIED ORGANISM Qualifiers: Pneumonia type: due to unspecified organism Laterality: right Lung location: lower lobe of lung Qualified Code(s): J18.9 - Pneumonia, unspecified organism (2) COPD exacerbation Code(s): J44.1 - CHRONIC OBSTRUCTIVE PULMONARY DISEASE W (ACUTE) EXACERBATION (3) HTN (hypertension) Code(s): I10 - ESSENTIAL (PRIMARY) HYPERTENSION (4) Volume overload Code(s): E87.70 - FLUID OVERLOAD, UNSPECIFIED (5) Abdominal obesity Code(s): E65 - LOCALIZED ADIPOSITY (6) Elevated troponin Code(s): R79.89 - OTHER SPECIFIED ABNORMAL FINDINGS OF BLOOD CHEMISTRY (7) Hyponatremia Code(s): E87.1 - HYPO-OSMOLALITY AND HYPONATREMIA Visit type - Emergency Visit Emergency Visit: Yes ED Registration Date: 03/26/16 Care time: The patient presented to the Emergency Department on the above date and was hospitalized for further evaluation of their emergent condition. - New Patient This patient is new to me today: No - Critical Care Critical Care patient: No - Discharge Referral Referred to [facility] Med P.C.: No
--- NOTE | 2016-03-31 11:27 | PN ---
Teaching Attending Note Name of Resident: Della Noguera ATTENDING PHYSICIAN STATEMENT I saw and evaluated the patient. I reviewed the resident's note and discussed the case with the resident. I agree with the resident's findings and plan as documented. SUBJECTIVE:states breathing has improved. states cough is no longer productive. denies CP, fever, chills, N/V/C/D OBJECTIVE: Last Vital Signs Temp Pulse Resp BP Pulse Ox 96.8 F L 91 H 20 120/65 96 03/31/16 08:14 03/31/16 10:31 03/31/16 08:17 03/31/16 08:14 03/31/16 10:31 General NAD CV S1 S2 RRR No murmur/rub/gallop Lungs decreased breath sounds poor inspiratory effort no crackles or wheezing ASSESSMENT AND PLAN: 60yo F with PMH HTN presented to the ER and was admitted for further evaluation of their emergent condition 1. Acute hypoxic respiratory failure- due to acute COPD exacerbation vs PNA. CT chest showing only small R sided pleural effusion. informed by RN that she desaturated to 80% on RA at rest. will titrate steroids down today as tolerated. cont supplemental oxygen as needed to maintain spO2 >90%. pulmonary on board. 2. Hyponatremia- resolved 3. Lactic acidosis- resolved 4. R 9th rib subacute fracture- pain control 5. HTN- controlled. cont norvasc 6. DVT ppx- lovenox
--- NOTE | 2016-03-31 12:13 | PN ---
Progress Note, Physician History of Present Illness: PULMONARY ALERT,FEELING BETTER,LESS DYSPNEIC,LESS COUGH. - Current Medication List Current Medications: Active Medications Acetaminophen (Tylenol -) 325 mg PO Q6H PRN PRN Reason: FEVER OR PAIN Last Admin: 03/30/16 22:01 Dose: 325 mg Aclidinium [place] (Tudorza -) 1 puff IH BID [facility] Last Admin: 03/31/16 09:30 Dose: 1 puff Albuterol Sulfate (Ventolin 0.083% Nebulizer Soln -) 1 amp NEB Q4H PRN PRN Reason: SHORT OF BREATH/WHEEZING Last Admin: 03/30/16 15:44 Dose: 1 amp Albuterol Sulfate (Ventolin 0.083% Nebulizer Soln -) 1 amp NEB QIDR [facility] Last Admin: 03/31/16 11:20 Dose: 1 amp Amlodipine Besylate (Norvasc -) 5 mg PO DAILY [facility] Last Admin: 03/31/16 09:29 Dose: 5 mg Budesonide/Formoterol Fumarate (Symbicort 160/4.5mcg -) 2 puff IH BID [facility] Last Admin: 03/31/16 09:30 Dose: 2 puff Enoxaparin Sodium (Lovenox -) 40 mg SQ DAILY [facility] Last Admin: 03/31/16 09:29 Dose: 40 mg Ceftriaxone Sodium (Rocephin 1gm Ivpb (Pre-Docked)) 50 mls @ 100 mls/hr IVPB DAILY [facility] Last Admin: 03/31/16 09:29 Dose: 100 mls/hr Methylprednisolone Sodium Succinate (Solu-Medrol -) 40 mg IVPB DAILY [facility] Pseudoephedrine HCl (Sudafed -) 30 mg PO Q6H PRN Last Admin: 03/30/16 22:39 Dose: 30 mg - Objective Vital Signs: Vital Signs Temperature 96.8 F L 03/31/16 08:14 Pulse Rate 107 H 03/31/16 11:18 Respiratory Rate 20 03/31/16 08:17 Blood Pressure 120/65 03/31/16 08:14 O2 Sat by Pulse Oximetry (%) 92 L 03/31/16 11:18 Constitutional: Yes: Calm, Obese Eyes: Yes: WNL HENT: Yes: WNL Neck: Yes: WNL Cardiovascular: Yes: Regular Rate and Rhythm, S1, S2 Respiratory: Yes: Diminished Gastrointestinal: Yes: Normal Bowel Sounds, Soft Extremities: Yes: WNL Edema: No Labs: CBC, BMP Laboratory Tests 03/30/16 11:35 Puncture Site Right radial ABG pCO2 at Pt Temp 47.4 H D ABG pO2 at Pt Temp 68.6 L D ABG HCO3 32.6 H ABG O2 Sat (Measured) 93.3 ABG O2 Content 20.1 O2 Delivery Device Nasal o2 Oxygen Flow Rate 2l Problem List - Problems (1) Abdominal obesity Code(s): E65 - LOCALIZED ADIPOSITY (2) COPD exacerbation Code(s): J44.1 - CHRONIC OBSTRUCTIVE PULMONARY DISEASE W (ACUTE) EXACERBATION (3) HTN (hypertension) Code(s): I10 - ESSENTIAL (PRIMARY) HYPERTENSION (4) Hyponatremia Code(s): E87.1 - HYPO-OSMOLALITY AND HYPONATREMIA (5) Pneumonia Code(s): J18.9 - PNEUMONIA, UNSPECIFIED ORGANISM Qualifiers: Pneumonia type: due to unspecified organism Laterality: right Lung location: lower lobe of lung Qualified Code(s): J18.9 - Pneumonia, unspecified organism (6) Volume overload Code(s): E87.70 - FLUID OVERLOAD, UNSPECIFIED (7) Pulmonary HTN Code(s): I27.2 - OTHER SECONDARY PULMONARY HYPERTENSION (8) Acute respiratory failure with hypoxia and hypercapnia Code(s): J96.01 - ACUTE RESPIRATORY FAILURE WITH HYPOXIA J96.02 - ACUTE RESPIRATORY FAILURE WITH HYPERCAPNIA (9) Sleep apnea, obstructive Code(s): G47.33 - OBSTRUCTIVE SLEEP APNEA (ADULT) (PEDIATRIC) Assessment/Plan IMP ACUTE HYPOXEMIC/HYPERCAPNEIC RESPIRATORY FAILURE IMPROVING PNEUMONIA COPD CHF PULMONARY HTN LIKELY OSAS HYPONATREMIA IMPROVED MORBID OBESITY PLAN BIPAP PRN O2 TO MAINTAIN SAT 90% OR GREATER ANTIBIOTICS INHALED BRONCHODILATORS STEROIDS DAILY WTS SLEEP STUDIES OUTPATIENT INCENTIVE SPIROMETER PULMONARY REHAB POST DISCHARGE HOME O2 DR SOSA
[2016-03-31] MEDS: ACETAMINOPHEN 325 MG TABLET (FP) PO PRN ×2 (14:32→20:51)
[2016-03-31] MEDS: PSEUDOEPHEDRINE HCL 30 MG TABLET PO PRN (20:57)
[2016-04-01] MEDS: ALBUTEROL SO4 0.083% IH SOL 2.5 MG/3 ML VIAL.NEB. NEB SCH ×5 (00:13→23:45)
[2016-04-01] MEDS: ACETAMINOPHEN 325 MG TABLET (FP) PO PRN (05:39)
[2016-04-01 08:23] LABS: MCHC 33.1 g/dl (32.0-36.0); MEAN CELL VOLUME 108.7 fl (80-96); MEAN PLT VOLUME 6.7 fl (7.5-11.1); PLATELET COUNT 276 K/MM3 (134-434); RDW 13.6 % (11.6-15.6); WHITE BLOOD COUNT 8.8 K/mm3 (4.0-10.0)
[2016-04-01 08:54] LABS: CALCIUM 8.7 mg/dL (8.5-10.1); CREATININE 0.5 mg/dL (0.55-1.02)
[2016-04-01] MEDS ORDERED: PT OWN MED DRAWER 7, Y5N ONE ×3 (09:09→21:54)
[2016-04-01] MEDS: BUDESONIDE/FORMETEROL FUMARATE 160/4.5 mcg INHALER IH SCH ×2 (09:31→21:53)
[2016-04-01] MEDS: amLODIPine BESYLATE 5 MG TABLET (FP) PO SCH (09:31)
[2016-04-01] MEDS: ACLIDINIUM BROMIDE 400 MCG/INH AERO.POWD IH SCH ×2 (09:31→21:51)
[2016-04-01] MEDS: ENOXAPARIN NA (PORCINE) 40 MG/0.4 ML DISP.SYRIN SQ SCH (09:32)
[2016-04-01] MEDS: methylPREDNISolone NA SUCC 40 MG/1 ML VIAL IVPB SCH (09:32)
[2016-04-01] MEDS: CEFTRIAXONE 50 ML IVPB SCH (09:32)
[2016-04-01] MEDS: PSEUDOEPHEDRINE HCL 30 MG TABLET PO PRN ×2 (09:35→21:54)
[2016-04-01 11:12] LABS: TEAR DROP CELLS RARE
--- NOTE | 2016-04-01 11:34 | PN ---
Progress Note, Physician History of Present Illness: pulmonary alert,feeling better,less dyspneic,+ occ cough - Current Medication List Current Medications: Active Medications Acetaminophen (Tylenol -) 325 mg PO Q6H PRN PRN Reason: FEVER OR PAIN Last Admin: 04/01/16 05:39 Dose: 325 mg Aclidinium [place] (Tudorza -) 1 puff IH BID [facility] Last Admin: 04/01/16 09:31 Dose: 1 puff Albuterol Sulfate (Ventolin 0.083% Nebulizer Soln -) 1 amp NEB Q4H PRN PRN Reason: SHORT OF BREATH/WHEEZING Last Admin: 03/30/16 15:44 Dose: 1 amp Albuterol Sulfate (Ventolin 0.083% Nebulizer Soln -) 1 amp NEB QIDR [facility] Last Admin: 04/01/16 05:57 Dose: 1 amp Amlodipine Besylate (Norvasc -) 5 mg PO DAILY [facility] Last Admin: 04/01/16 09:31 Dose: 5 mg Budesonide/Formoterol Fumarate (Symbicort 160/4.5mcg -) 2 puff IH BID [facility] Last Admin: 04/01/16 09:31 Dose: 2 puff Enoxaparin Sodium (Lovenox -) 40 mg SQ DAILY [facility] Last Admin: 04/01/16 09:32 Dose: 40 mg Ceftriaxone Sodium (Rocephin 1gm Ivpb (Pre-Docked)) 50 mls @ 100 mls/hr IVPB DAILY [facility] Last Admin: 04/01/16 09:32 Dose: 100 mls/hr Methylprednisolone Sodium Succinate (Solu-Medrol -) 40 mg IVPB DAILY [facility] Last Admin: 04/01/16 09:32 Dose: 40 mg Pseudoephedrine HCl (Sudafed -) 30 mg PO Q6H PRN Last Admin: 04/01/16 09:35 Dose: 30 mg - Objective Vital Signs: Vital Signs Temperature 98.3 F 04/01/16 09:03 Pulse Rate 88 04/01/16 09:03 Respiratory Rate 20 04/01/16 09:03 Blood Pressure 131/79 04/01/16 09:03 O2 Sat by Pulse Oximetry (%) 93 L 04/01/16 09:30 Constitutional: Yes: Calm, Obese Eyes: Yes: WNL HENT: Yes: WNL Neck: Yes: WNL Cardiovascular: Yes: Regular Rate and Rhythm, S1, S2 Respiratory: Yes: Diminished Gastrointestinal: Yes: WNL Extremities: Yes: WNL Edema: No Labs: CBC, BMP 04/01/16 06:00 04/01/16 06:00 Problem List - Problems (1) Abdominal obesity Code(s): E65 - LOCALIZED ADIPOSITY (2) COPD exacerbation Code(s): J44.1 - CHRONIC OBSTRUCTIVE PULMONARY DISEASE W (ACUTE) EXACERBATION (3) HTN (hypertension) Code(s): I10 - ESSENTIAL (PRIMARY) HYPERTENSION (4) Hyponatremia Code(s): E87.1 - HYPO-OSMOLALITY AND HYPONATREMIA (5) Pneumonia Code(s): J18.9 - PNEUMONIA, UNSPECIFIED ORGANISM Qualifiers: Pneumonia type: due to unspecified organism Laterality: right Lung location: lower lobe of lung Qualified Code(s): J18.9 - Pneumonia, unspecified organism (6) Volume overload Code(s): E87.70 - FLUID OVERLOAD, UNSPECIFIED (7) Pulmonary HTN Code(s): I27.2 - OTHER SECONDARY PULMONARY HYPERTENSION (8) Acute respiratory failure with hypoxia and hypercapnia Code(s): J96.01 - ACUTE RESPIRATORY FAILURE WITH HYPOXIA J96.02 - ACUTE RESPIRATORY FAILURE WITH HYPERCAPNIA (9) Sleep apnea, obstructive Code(s): G47.33 - OBSTRUCTIVE SLEEP APNEA (ADULT) (PEDIATRIC) Assessment/Plan IMP ACUTE HYPOXEMIC/HYPERCAPNEIC RESPIRATORY FAILURE IMPROVING PNEUMONIA COPD CHF PULMONARY HTN LIKELY OSAS HYPONATREMIA IMPROVED MORBID OBESITY PLAN BIPAP PRN O2 TO MAINTAIN SAT 90% OR GREATER ANTIBIOTICS INHALED BRONCHODILATORS STEROID TAPER DAILY WTS SLEEP STUDIES OUTPATIENT INCENTIVE SPIROMETER PULMONARY REHAB POST DISCHARGE HOME O2 DR SOSA
--- NOTE | 2016-04-01 13:26 | PN ---
Progress Note (short form) - Note Progress Note: c/o R rib pain, not relieved with pain medications. continues to have couugh but not productive. denies CP, Fever, chils, SOB Current Medications Generic Name Dose Route Start Last Admin Trade Name Freq PRN Reason Stop Dose Admin Acetaminophen/Codeine Phosphate 1 tab 04/01/16 11:51 Tylenol # 3 - PO Q6H PRN FEVER OR PAIN Aclidinium [place] 1 puff 03/26/16 11:00 04/01/16 09:31 Tudorza - IH 1 puff BID GILBERTO Administration Albuterol Sulfate 1 amp 03/26/16 10:36 03/30/16 15:44 Ventolin 0.083% Nebulizer Soln - NEB 1 amp Q4H PRN Administration SHORT OF BREATH/WHEEZING Albuterol Sulfate 1 amp 03/26/16 12:00 04/01/16 12:02 Ventolin 0.083% Nebulizer Soln - NEB 1 amp QIDR GILBERTO Administration Amlodipine Besylate 5 mg 03/26/16 10:00 04/01/16 09:31 Norvasc - PO 5 mg DAILY GILBERTO Administration Budesonide/Formoterol Fumarate 2 puff 03/26/16 10:45 04/01/16 09:31 Symbicort 160/4.5mcg - IH 2 puff BID GILBEROT Administration Enoxaparin Sodium 40 mg 03/26/16 10:00 04/01/16 09:32 Lovenox - SQ 40 mg DAILY GILBERTO Administration Ceftriaxone Sodium 50 mls @ 100 mls/hr 03/26/16 10:00 04/01/16 09:32 Rocephin 1gm Ivpb (Pre-Docked) IVPB 100 mls/hr DAILY GILBERTO Administration Methylprednisolone Sodium Succinate 40 mg 03/31/16 10:21 04/01/16 09:32 Solu-Medrol - IVPB 40 mg DAILY GILBERTO Administration Pseudoephedrine HCl 30 mg 03/30/16 08:30 04/01/16 09:35 Sudafed - PO 30 mg Q6H PRN Administration Last Vital Signs Temp Pulse Resp BP Pulse Ox 98.3 F 88 20 131/79 93 L 04/01/16 09:03 04/01/16 09:03 04/01/16 09:03 04/01/16 09:03 04/01/16 09:30 General NAD CV S1 S2 RRR No murmur/rub/gallop Lungs CTA B/L no wheezing/rales/rhonchi Abdomen soft obese CBCD WBC 8.8 K/mm3 (4.0-10.0) 04/01/16 06:00 RBC 4.48 M/mm3 (3.60-5.2) 04/01/16 06:00 Hgb 16.1 GM/dL (10.7-15.3) H D 04/01/16 06:00 Hct 48.7 % (32.4-45.2) H D 04/01/16 06:00 MCV 108.7 fl (80-96) H 04/01/16 06:00 MCHC 33.1 g/dl (32.0-36.0) 04/01/16 06:00 RDW 13.6 % (11.6-15.6) 04/01/16 06:00 Plt Count 276 K/MM3 (134-434) D 04/01/16 06:00 MPV 6.7 fl (7.5-11.1) L 04/01/16 06:00 CMP Sodium 137 mmol/L (136-145) 04/01/16 06:00 Potassium 3.7 mmol/L (3.5-5.1) D 04/01/16 06:00 Chloride 95 mmol/L (98-107) L 04/01/16 06:00 Carbon Dioxide 35 mmol/L (21-32) H 04/01/16 06:00 Anion Gap 7 (8-16) L 04/01/16 06:00 BUN 15 mg/dL (7-18) 04/01/16 06:00 Creatinine 0.5 mg/dL (0.55-1.02) L 04/01/16 06:00 Creat Clearance w eGFR > 60 (>60) 03/26/16 06:05 Calcium 8.7 mg/dL (8.5-10.1) 04/01/16 06:00 Total Bilirubin 0.3 mg/dL (0.2-1.0) D 03/26/16 06:05 AST 33 U/L (15-37) 03/26/16 06:05 ALT 29 U/L (12-78) 03/26/16 06:05 Alkaline Phosphatase 88 U/L (45-117) 03/26/16 06:05 Total Protein 7.3 g/dl (6.4-8.2) 03/26/16 06:05 Albumin 3.2 g/dl (3.4-5.0) L 03/26/16 06:05 ASSESSMENT AND PLAN: 60yo F with PMH HTN presented to the ER and was admitted for further evaluation of their emergent condition 1. Acute hypoxic respiratory failure- due to acute COPD exacerbation vs PNA. clinically improved, will cont steroids at current daily dosing, will switch to po tomorrow and give slow taper on discharge. will need supplemental oxygen on exertion at discharge. 3L NC to maintain spO2 >90%. explained will need to f/u with pulm as outpatient for further testing and maintenance of lung disease. answered all questions. verbalized understanding. 2. Hyponatremia- resolved 3. Lactic acidosis- resolved 4. R 9th rib subacute fracture- start tylenol with codeine. 5. HTN- controlled. cont norvasc 6. DVT ppx- lovenox 7. d/c planning tomorrow with home O2 Visit type - Emergency Visit Emergency Visit: Yes ED Registration Date: 03/26/16 Care time: The patient presented to the Emergency Department on the above date and was hospitalized for further evaluation of their emergent condition. - New Patient This patient is new to me today: No - Critical Care Critical Care patient: No - Discharge Referral Referred to [facility] Med P.C.: No
[2016-04-01] MEDS: ACETAMINOPHEN WITH CODEINE 300MG/30MG TABLET PO PRN ×2 (14:06→21:52)
[2016-04-02 06:18] VITALS: PULSE 86
[2016-04-02] MEDS: ALBUTEROL SO4 0.083% IH SOL 2.5 MG/3 ML VIAL.NEB. NEB SCH ×3 (06:24→17:30)
--- NOTE | 2016-04-02 08:44 | DS ---
Physical Exam: SUBJECTIVE: Patient seen and examined at bed side this am. patient reports feeling better and SOB has improving, no change in R rib pain s/p mechanical fall prior to admission. Patient denies any new or changed in CP. patient did not use BiPAP last night. no overnight events. OBJECTIVE: Vital Signs Period Temp Pulse Resp BP Sys/Pride Pulse Ox Last 24 Hr 97.0 F-98.3 F 85-92 18-22 124-133/57-79 93-94 PHYSICAL EXAM GENERAL: The patient is awake, alert, and fully oriented, in no acute distress. Morbid obese HEAD: Normal with no signs of trauma. EYES: PERRL, extraocular movements intact, sclera anicteric, conjunctiva clear, exothalmus, per-ocular swelling(chronic). ENT: Ears normal, nares patent, oropharynx clear without exudates, moist mucous membranes. NECK: Trachea midline, full range of motion, supple. shoulder anterior swelling/ fat pad (chronic) LUNGS: Breath sounds equal, clear to auscultation bilaterally, no wheezes, no crackles, no accessory muscle use. HEART: Regular rate and rhythm, S1, S2 without murmur, rub or gallop. ABDOMEN: Obese abd, Soft, nontender, nondistended, normoactive bowel sounds, no guarding, no rebound, no hepatosplenomegaly, no masses. EXTREMITIES: 2+ pulses, warm, well-perfused, +3 edema. NEUROLOGICAL: Cranial nerves II through XII grossly intact. Normal speech, gait not observed. PSYCH: Normal mood, normal affect. SKIN: Warm, dry, normal turgor, no rashes or lesions noted. LABS Laboratory Results - last 24 hr 04/01/16 04/01/16 06:00 06:00 Macrocytosis 3+ Tear Drop Cells Rare Morphology Comment Slide scanned Sodium 137 Potassium 3.7 D Chloride 95 L Carbon Dioxide 35 H Anion Gap 7 L BUN 15 Creatinine 0.5 L Random Glucose 73 L D Calcium 8.7 Microbiology 03/26/16 03:20 Nasopharyngeal Swab Respiratory Virus Panel - Final 03/25/16 23:00 Blood - Peripheral Venous Blood Culture - Final NO GROWTH AFTER 5 DAYS INCUBATION 03/25/16 23:00 Blood - Peripheral Venous Blood Culture - Final NO GROWTH AFTER 5 DAYS INCUBATION 03/26/16 06:05 Urine - Urine Clean Catch Urine Culture - Final NO GROWTH OBTAINED 03/26/16 06:05 Urine For Antigen Detection Legionella Antigen - Final 03/26/16 06:05 Urine For Antigen Detection Streptococcus pneumoniae Antigen (M - Final 03/26/16 03:20 Nasopharyngeal Swab Influenza Types A,B Antigen (KALI) - Final 03/26/16 03:20 Nasopharyngeal Swab - Final Active Medications Generic Name Dose Route Start Last Admin Trade Name Freq PRN Reason Stop Dose Admin Acetaminophen/Codeine Phosphate 1 tab 04/01/16 11:51 04/02/16 10:00 Tylenol # 3 - PO 1 tab Q6H PRN Administration FEVER OR PAIN Aclidinium [place] 1 puff 03/26/16 11:00 04/02/16 10:03 Tudorza - IH 1 puff BID GILBERTO Administration Albuterol Sulfate 1 amp 03/26/16 10:36 03/30/16 15:44 Ventolin 0.083% Nebulizer Soln - NEB 1 amp Q4H PRN Administration SHORT OF BREATH/WHEEZING Albuterol Sulfate 1 amp 03/26/16 12:00 04/02/16 11:30 Ventolin 0.083% Nebulizer Soln - NEB 1 amp QIDR GILBERTO Administration Amlodipine Besylate 5 mg 03/26/16 10:00 04/02/16 10:02 Norvasc - PO 5 mg DAILY GILBERTO Administration Budesonide/Formoterol Fumarate 2 puff 03/26/16 10:45 04/02/16 10:02 Symbicort 160/4.5mcg - IH 2 puff BID GILBERTO Administration Enoxaparin Sodium 40 mg 03/26/16 10:00 04/02/16 10:01 Lovenox - SQ 40 mg DAILY GILBERTO Administration Methylprednisolone Sodium Succinate 40 mg 03/31/16 10:21 04/02/16 10:02 Solu-Medrol - IVPB 40 mg DAILY GILBERTO Administration Pseudoephedrine HCl 30 mg 03/30/16 08:30 04/01/16 21:54 Sudafed - PO 30 mg Q6H PRN Administration HOSPITAL COURSE: Date of Admission:03/26/16 Date of Discharge: 04/02/16 The patient is a 60 yo F who presented to the ED with worsening dyspnea for the past week. The patient describes sudden onset of SOB that has progressively worsened. She reports a fall 3 days ago where she fell to the ground and injured her ribs, R knee and R wrist. The patient denies any headache, blurry vision, LOC or any neck/head trauma. The patient states her dyspnea worsened since the fall and states it is exacerbated with movement and is associated with palpitations. The patient also reports decreased appetite, productive cough (yellow), clear rhinnorhea and yellow secretions draining from her eyes. The patient denies chest pain or dizziness. She denies fever, chills, nausea, vomit, diarrhea or constipation. She denies dysuria, frequency, urgency or hematuria. She presents to the ED for further evaluation. on PE + Decreased breath sounds on the L bases. + Scattered rhonchi. + R basal crackles + Expiratory wheezing. found to be septic 2/2 to acute on chronic COPD exacerbation V PNA. patient treated with medrol IV 60 Q8, completed 7 day course of Ceftriaxone and azithromycin, bronchio inhalers, BiPAP. patient symptoms dyspnia improved and post exercise will require home O2. Elevated troponin .04, trended down, most likely demand ischemia, -EKG RBBB, no ACS, recent negative stress test, get eccho to assess if CHF v PHTN. Moderate Hyponatremia resolved. lactic acidosis resolved 2/2 sepsis. Rib pain 2/ 2 mechanical fall prior to admission pain controlled with Tylenol#3. patient is currently medically stable, PE Lungs are clear to auscultation bilateral, decreased dyspnia and SOB, feeling well and will be discharged home on oxygen and prednisone madina. Minutes to complete discharge: 35 Discharge Summary Reason For Visit: PNEUMONIA Current Active Problems Abdominal obesity (Acute) Acute respiratory failure with hypoxia and hypercapnia (Acute) COPD exacerbation (Acute) Elevated troponin (Acute) HTN (hypertension) (Acute) Hyponatremia (Acute) Pneumonia (Acute) Pulmonary HTN (Acute) Sleep apnea, obstructive (Acute) Volume overload (Acute) - Instructions Diet, Activity, Other Instructions: You are being discharged home. Please call and follow up with your primary care provider in one week to assess your health. Please call and follow up with pulmonology Dr. Kitchen in one week, to assess you re your COPD, sleep study, and steroid madina. Please take Tylenol #3 for three more days for youre your rib pain as needed. Please take your medications as prescribed. You will be provided and set up with home oxygen Please the prednisone madina daily. Start with 40 mg for 3 days, then 30mg for 3 days, then 20mg for 3 days, 10 mg for 3 days, then stop. Please reports to the ER or the nearest ER if you have any persistent and worsening symptoms, chest pain, palpitation, fevers, chills, night sweats, Nausea, Vomiting, severe headache dizziness or loss of consciousness. Referrals: Alistair Kitchen MD [Staff Physician] - 1 Week Jayme Ponce MD [Primary Care Provider] - 1 Week Disposition: HOME - Home Medications Comprehensive Discharge Medication List: Ambulatory Orders Amlodipine Besylate 5 mg PO DAILY 03/26/16 This patient is new to me today: Yes Date on this admission: 03/26/16 Emergency Visit: Yes ED Registration Date: 03/26/16 Care time: The patient presented to the Emergency Department on the above date and was hospitalized for further evaluation of their emergent condition. Critical Care patient: No - Discharge Referral Referred to [facility] Med P.C.: No
[2016-04-02] MEDS: ACETAMINOPHEN WITH CODEINE 300MG/30MG TABLET PO PRN (10:00)
[2016-04-02] MEDS: ENOXAPARIN NA (PORCINE) 40 MG/0.4 ML DISP.SYRIN SQ SCH (10:01)
[2016-04-02] MEDS: BUDESONIDE/FORMETEROL FUMARATE 160/4.5 mcg INHALER IH SCH (10:02)
[2016-04-02] MEDS: methylPREDNISolone NA SUCC 40 MG/1 ML VIAL IVPB SCH (10:02)
[2016-04-02] MEDS: amLODIPine BESYLATE 5 MG TABLET (FP) PO SCH (10:02)
[2016-04-02] MEDS: CEFTRIAXONE 50 ML IVPB SCH (10:02)
[2016-04-02] MEDS: ACLIDINIUM BROMIDE 400 MCG/INH AERO.POWD IH SCH (10:03)
[2016-04-02] MEDS ORDERED: predniSONE 20 MG TABLET (UD) PO ONE (11:00)
--- NOTE | 2016-04-02 11:47 | PN ---
Progress Note, Physician History of Present Illness: pulmonary doing well,-c/o cp,-sob - Current Medication List Current Medications: Active Medications Acetaminophen/Codeine Phosphate (Tylenol # 3 -) 1 tab PO Q6H PRN PRN Reason: FEVER OR PAIN Last Admin: 04/02/16 10:00 Dose: 1 tab Aclidinium [place] (Tudorza -) 1 puff IH BID [facility] Last Admin: 04/02/16 10:03 Dose: 1 puff Albuterol Sulfate (Ventolin 0.083% Nebulizer Soln -) 1 amp NEB Q4H PRN PRN Reason: SHORT OF BREATH/WHEEZING Last Admin: 03/30/16 15:44 Dose: 1 amp Albuterol Sulfate (Ventolin 0.083% Nebulizer Soln -) 1 amp NEB QIDR [facility] Last Admin: 04/02/16 06:24 Dose: 1 amp Amlodipine Besylate (Norvasc -) 5 mg PO DAILY [facility] Last Admin: 04/02/16 10:02 Dose: 5 mg Budesonide/Formoterol Fumarate (Symbicort 160/4.5mcg -) 2 puff IH BID [facility] Last Admin: 04/02/16 10:02 Dose: 2 puff Enoxaparin Sodium (Lovenox -) 40 mg SQ DAILY [facility] Last Admin: 04/02/16 10:01 Dose: 40 mg Methylprednisolone Sodium Succinate (Solu-Medrol -) 40 mg IVPB DAILY [facility] Last Admin: 04/02/16 10:02 Dose: 40 mg Pseudoephedrine HCl (Sudafed -) 30 mg PO Q6H PRN Last Admin: 04/01/16 21:54 Dose: 30 mg - Objective Vital Signs: Vital Signs Temperature 98.2 F 04/02/16 02:04 Pulse Rate 86 04/02/16 06:00 Respiratory Rate 20 04/02/16 06:00 Blood Pressure 133/64 04/02/16 06:00 O2 Sat by Pulse Oximetry (%) 94 L 04/01/16 21:00 Constitutional: Yes: Calm, Obese Eyes: Yes: WNL HENT: Yes: WNL Neck: Yes: WNL Cardiovascular: Yes: Regular Rate and Rhythm, S1, S2 Respiratory: Yes: CTA Bilaterally Gastrointestinal: Yes: WNL Extremities: Yes: WNL Edema: No Labs: Problem List - Problems (1) Abdominal obesity Code(s): E65 - LOCALIZED ADIPOSITY (2) COPD exacerbation Code(s): J44.1 - CHRONIC OBSTRUCTIVE PULMONARY DISEASE W (ACUTE) EXACERBATION (3) HTN (hypertension) Code(s): I10 - ESSENTIAL (PRIMARY) HYPERTENSION (4) Hyponatremia Code(s): E87.1 - HYPO-OSMOLALITY AND HYPONATREMIA (5) Pneumonia Code(s): J18.9 - PNEUMONIA, UNSPECIFIED ORGANISM Qualifiers: Pneumonia type: due to unspecified organism Laterality: right Lung location: lower lobe of lung Qualified Code(s): J18.9 - Pneumonia, unspecified organism (6) Volume overload Code(s): E87.70 - FLUID OVERLOAD, UNSPECIFIED (7) Pulmonary HTN Code(s): I27.2 - OTHER SECONDARY PULMONARY HYPERTENSION (8) Acute respiratory failure with hypoxia and hypercapnia Code(s): J96.01 - ACUTE RESPIRATORY FAILURE WITH HYPOXIA J96.02 - ACUTE RESPIRATORY FAILURE WITH HYPERCAPNIA (9) Sleep apnea, obstructive Code(s): G47.33 - OBSTRUCTIVE SLEEP APNEA (ADULT) (PEDIATRIC) Assessment/Plan IMP ACUTE HYPOXEMIC/HYPERCAPNEIC RESPIRATORY FAILURE IMPROVED PNEUMONIA COPD CHF PULMONARY HTN LIKELY OSAS HYPONATREMIA IMPROVED MORBID OBESITY PLAN BIPAP PRN O2 TO MAINTAIN SAT 90% OR GREATER INHALED BRONCHODILATORS PREDNISONE 40mg PO DAILY WITH TAPER DAILY WTS SLEEP STUDIES OUTPATIENT INCENTIVE SPIROMETER PULMONARY REHAB POST DISCHARGE HOME O2 DR SOSA
--- NOTE | 2016-04-02 15:52 | PN ---
Teaching Attending Note Name of Resident: Kenia Jones ATTENDING PHYSICIAN STATEMENT I saw and evaluated the patient. I reviewed the resident's note and discussed the case with the resident. I agree with the resident's findings and plan as documented. SUBJECTIVE:currently asymptomatic. states pain has resolved with pain medication. denies CP, SOB,fever, chills, N/V/C/D OBJECTIVE: Last Vital Signs Temp Pulse Resp BP Pulse Ox 98 F 86 20 130/75 95 04/02/16 09:00 04/02/16 09:00 04/02/16 09:00 04/02/16 09:00 04/02/16 09:00 General NAD Lungs CTA B/L no wheezing/rales/rhonchi ASSESSMENT AND PLAN: 60yo F with PMH HTN presented to the ER and was admitted for further evaluation of their emergent condition 1. Acute hypoxic respiratory failure- due to acute COPD exacerbation vs PNA. clinically improved, will d/c home on steroids with slow taper of 10mg q3days. supplemental oxygen on exertion. explained will need to f/u with pulm as outpatient for further testing and maintenance of lung disease. answered all questions. verbalized understanding. 2. Hyponatremia- resolved 3. Lactic acidosis- resolved 4. R 9th rib subacute fracture- cont tylenol with codeine. 5. HTN- controlled. cont norvasc 6. DVT ppx- lovenox 7. d/c home with home O2
[2016-04-02 16:26] VITALS: BP 130/70; TEMP 98.3
== END 2016-04-02 18:26 | disposition home or self-care (01) | DRG 720 ==
LOC: JER 22:29 → JERBED 03-26 00:15 → J4W 03-26 13:14
PROVIDERS: ADMIT Internal Medicine; ATTEND Internal Medicine
PROC: 5A09557 Assistance with Respiratory Ventilation, Greater than 96 Consecutive Hours, Continuous Positive Airway Pressure (ICD-10-PCS; principal; 2016-03-26)
DX: A41.9 Sepsis, unspecified organism (principal); J18.9 Pneumonia, unspecified organism; M54.89 Other dorsalgia; E66.01 Morbid (severe) obesity due to excess calories; Z68.41 Body mass index [BMI] 40.0-44.9, adult; Z71.3 Dietary counseling and surveillance; E87.1 Hypo-osmolality and hyponatremia; J44.1 Chronic obstructive pulmonary disease with (acute) exacerbation; J96.01 Acute respiratory failure with hypoxia; J96.02 Acute respiratory failure with hypercapnia; I27.2 Other secondary pulmonary hypertension; G47.33 Obstructive sleep apnea (adult) (pediatric); E87.70 Fluid overload, unspecified; I45.19 Other right bundle-branch block; E87.2 Acidosis; S22.31XD Fracture of one rib, right side, subsequent encounter for fracture with routine healing; W18.39XD Other fall on same level, subsequent encounter; Z87.891 Personal history of nicotine dependence
CPT/HCPCS: 36415; 36600; 71010-TC; 71111-TC; 71275-TC; 80048; 80053; 80061; 81003; 82436; 82550; 82803; 83605; 83721; 83735; 83880; 83930; 83935; 84100; 84133; 84300; 84484; 85025; 85027; 87040; 87086; 87254; 87804; 87899; 90732; 93005; 93010; 93306-TC; 94640; 94660; 94761; 99284-25; G0009

== ENCOUNTER 2016-05-15 15:55 | Inpatient (IN) | payer OTHER ==
[2016-05-15 16:01] VITALS: BMI 43.5
[2016-05-15 16:25] LABS: MCH 35.4 pg (25.7-33.7); MCHC 32.8 g/dl (32.0-36.0); MEAN CELL VOLUME 108.1 fl (80-96); MEAN PLT VOLUME 6.9 fl (7.5-11.1); PLATELET COUNT 277 K/MM3 (134-434); RDW 14.9 % (11.6-15.6); WHITE BLOOD COUNT 11.5 K/mm3 (4.0-10.0)
--- NOTE | 2016-05-15 16:30 | PDOC ---
History of Present Illness - General History Source: Patient - History of Present Illness Presenting Symptoms: Chest Pain Timing/Duration: reports: constant Severity/Quality: reports: severe <Eric Rucker - Last Filed: 05/15/16 18:42> <Holley Toro - Last Filed: 05/15/16 20:13> - General Chief Complaint: Shortness of Breath Stated Complaint: PAIN Time Seen by Provider: 05/15/16 16:05 Past History - Past Medical History HTN: Yes Other medical history: ARTHRITIS - Psycho/Social/Smoking Cessation Hx Suicidal Ideation: No Smoking History: Former smoker Have you smoked in the past 12 months: Yes Number of Cigarettes Smoked Daily: 20 Information on smoking cessation initiated: No 'Breaking Loose' booklet given: 03/26/16 Hx Alcohol Use: Yes (DAILY BEER) Drug/Substance Use Hx: No Hx Substance Use Treatment: No <Eric Rucker Last Filed: 05/15/16 18:42> <Holley Toro - Last Filed: 05/15/16 20:13> - Past Medical History Allergies/Adverse Reactions: Allergies Allergy/AdvReac Type Severity Reaction Status Date / Time No Known Allergies Allergy Verified 05/15/16 16:01 Home Medications: Ambulatory Orders Aclidinium [place] [Tudorza -] 1 puff IH BID #1 inhaler 04/02/16 Albuterol Sulfate Inhaler - [Ventolin HFA Inhaler -] 1 - 2 inh PO Q4H PRN #1 inhaler 04/02/16 Amlodipine Besylate [Norvasc -] 5 mg PO DAILY tablet 04/02/16 Budesonide/Formeterol Fumarate [SYMBICORT 160/4.5mcg -] 2 puff IH BID #1 inhaler 04/02/16 Prednisone 10 mg PO DAILY #26 tablet 04/02/16 Review of Systems - Review of Systems Constitutional: No: Chills, Fever Respiratory: No: Cough, Shortness of Breath Cardiac (ROS): Yes: Chest Pain. No: Lightheadedness, Palpitations, Syncope <Eric Rucker Last Filed: 05/15/16 18:42> *Physical Exam - Physical Exam General Appearance: Yes: Appropriately Dressed. No: Apparent Distress HEENT: positive: Normal Voice Neck: positive: Tender (to R upper chest), Supple Respiratory/Chest: positive: Lungs Clear, Normal Breath Sounds. negative: Respiratory Distress Cardiovascular: positive: S1, S2, Tachycardia Gastrointestinal/Abdominal: positive: Soft. negative: Tender Extremity: positive: Pedal Edema (2+ b/l) <Leona RuckerMore - Last Filed: 05/15/16 18:42> - Vital Signs Last Vital Signs Temp Pulse Resp BP Pulse Ox 97.7 F 102 H 20 129/71 97 05/15/16 19:08 05/15/16 19:08 05/15/16 19:08 05/15/16 19:08 05/15/16 19:08 ED Treatment Course - LABORATORY CBC & Chemistry Diagram: 05/15/16 16:12 05/15/16 16:12 <Leona RuckerMore - Last Filed: 05/15/16 18:42> - LABORATORY CBC & Chemistry Diagram: 05/15/16 16:12 05/15/16 16:12 <Holley Toro - Last Filed: 05/15/16 20:13> - ADDITIONAL ORDERS Additional order review: Laboratory Results 05/15/16 05/15/16 05/15/16 17:00 16:17 16:12 Sodium 135 L Potassium 4.7 D Chloride 91 L Carbon Dioxide 30 Anion Gap 14 BUN 7 D Creatinine 0.5 L Creat Clearance w eGFR > 60 Random Glucose 103 D Calcium 8.4 L Total Bilirubin 0.3 AST 22 D ALT 21 D Alkaline Phosphatase 88 Creatine Kinase 33 Troponin I < 0.02 B-Natriuretic Peptide 84.58 Total Protein 6.5 Albumin 3.1 L Urine Color Straw Urine Appearance Clear Urine pH 6.0 Ur Specific [place] 1.003 Urine Protein Negative Urine Glucose (UA) Negative Urine Ketones Negative Urine Blood Negative Urine Nitrite Negative Urine Bilirubin Negative Urine Urobilinogen Negative Ur Leukocyte Esterase 1+ H Urine RBC 2 Urine WBC 3 Ur Epithelial Cells Rare 05/15/16 16:12 RBC 3.85 MCV 108.1 H MCHC 32.8 RDW 14.9 MPV 6.9 L Neutrophils % 66.0 D Lymphocytes % 21.0 D Monocytes % 8.0 D Eosinophils % 2.0 - Medications Given in the ED: ED Medications Discontinued Medications Generic Name Dose Route Start Last Admin Trade Name Freq PRN Reason Stop Dose Admin Cefepime HCl 1 gm 05/15/16 18:32 05/15/16 18:53 Maxipime (Restricted To Id) - IVPB 05/15/16 18:33 Not Given ONCE ONE Protocol Cefepime HCl 1 gm 05/15/16 18:41 05/15/16 18:54 Maxipime (Restricted To Id) - IVPB 05/15/16 18:42 1 gm ONCE ONE Administration Protocol Azithromycin 500 mg/ Dextrose 250 mls @ 250 mls/hr 05/15/16 18:33 05/15/16 18: 54 IVPB 05/15/16 19:32 Not Given ONCE ONE Vancomycin HCl 1,000 mg/ 250 mls @ 250 mls/hr 05/15/16 18:32 05/15/16 18:53 Dextrose IVPB 05/15/16 19:31 Not Given ONCE ONE Protocol Azithromycin 500 mg/ Dextrose 250 mls @ 250 mls/hr 05/15/16 18:41 05/15/16 18: 54 IVPB 05/15/16 19:40 250 mls/hr ONCE ONE Administration Ketorolac Tromethamine 30 mg 05/15/16 18:57 05/15/16 19:09 Toradol Injection - IVPUSH 05/15/16 18:58 30 mg ONCE ONE Administration Medical Decision Making <Eric Rucker - Last Filed: 05/15/16 18:42> <Holley Toro - Last Filed: 05/15/16 20:13> - Medical Decision Making 05/15/16 16:26 60-year-old female, morbid obesity, hypertension, sleep apnea, COPD on oxygen, pneumonia (04/09-C/B resp failure /hypercapnia), here with right chest pain. Patient states she fell down 2-3 steps at home 2 weeks ago, landing mostly on her R side. Has been treating pain with Advil. States pain did improve but worsened again yesterday and worse when she gets in and out of bed. Denies any shortness of breath, wheezing, cough, diaphoresis, nausea or vomiting. Patient has chronic edema to left leg but noticed right leg edema yesterday. No palpitations. No history of DVT/PE. See exam R sided CP S/p mec fall 2 weeks ago at home Not seen in ED Taking advil w/ worsening of pain yesterday Also c/o R leg swelling that is new Tachy w/ tachypneic and hypoxia in ED, chest/lungs w/ ?reproducible ttp to R upper chest, 2+ edema b/l R/o ACS vs ?PE vs ?pneumo from possible fractured rib (in setting of recent trauma), vs COPD flare vs recurrent PNA -oxygen -ekg -CXR -labs -US -?CTA -anticipate admission 05/15/16 16:32 05/15/16 17:26 05/15/16 18:38 CXR read as mild RLL infiltrate and mild prominent markings at L base, overall improved study compared to cxr 03/25. Will administer abx in ED. CTA r/o PE pending. Case d/w Dr Renae and pt admitted 05/15/16 18:42 (Eric Rucker) 05/15/16 20:11 Dr. Mcdaniels would like patient to be admitted under Observation/Tele. (Holley Toro) *DC/Admit/Observation/Transfer - Discharge Dispostion Admit: Yes <Eric Rucker - Last Filed: 05/15/16 18:42> - Discharge Dispostion Admit: Yes <Holley Toro - Last Filed: 05/15/16 20:13> Diagnosis at time of Disposition: Chest pain Qualifiers: Chest pain type: unspecified Qualified Code(s): R07.9 - Chest pain, unspecified Right rib fracture Qualifiers: Encounter type: initial encounter Rib fracture type: single rib Fracture type: closed Qualified Code(s): S22.31XA - Fracture of one rib, right side, initial encounter for closed fracture - Discharge Dispostion Condition at time of disposition: Fair - Referrals
[2016-05-15 16:50] LABS: URINE APPEARANCE CLEAR; URINE BILIRUBIN NEGATIVE (NEGATIVE); URINE BLOOD NEGATIVE (NEGATIVE); URINE COLOR STRAW; URINE GLUCOSE (UA) NEGATIVE (NEGATIVE); URINE KETONE NEGATIVE (NEGATIVE); URINE NITRITE NEGATIVE (NEGATIVE); URINE PROTEIN NEGATIVE (NEGATIVE); URINE UROBILINOGEN NEGATIVE E.U./dl (0.2-1.0)
[2016-05-15 16:52] LABS: ANISOCYTOSIS 1+; PLATELET ESTIMATE ADEQUATE (NORMAL); POLYCHROMASIA FEW
[2016-05-15 16:53] LABS: URINE LEUK ESTERASE 1+ (NEGATIVE)
[2016-05-15 16:54] LABS: URINE RBC 2 /hpf (0-3); URINE WBC 3 /hpf (3-5)
[2016-05-15 16:54] LABS: ALBUMIN 3.1 g/dl (3.4-5.0); ANION GAP 14 (8-16); BILIRUBIN,TOTAL 0.3 mg/dL (0.2-1.0); CALCIUM 8.4 mg/dL (8.5-10.1); CO2 30 mmol/L (21-32); CREATININE 0.5 mg/dL (0.55-1.02); GLUCOSE,RANDOM 103 mg/dL (74-106); SGOT/AST 22 U/L (15-37); SGPT/ALT 21 U/L (12-78)
[2016-05-15 17:05] LABS: ALK PHOS 88 U/L (45-117); TOT PROT 6.5 g/dl (6.4-8.2); TROPONIN I < 0.02 ng/ml (0.00-0.05)
[2016-05-15] MEDS ORDERED: VANCOMYCIN 1,000 MG in DEXTROSE 5%-WATER - 250 ML IVPB ONE (18:32)
[2016-05-15] MEDS ORDERED: CEFEPIME HCL 2 GM VIAL (RESTRICTED TO ID) IVPB ONE ×2 (18:32→18:41)
[2016-05-15] MEDS ORDERED: AZITHROMYCIN IVPB 500 MG in DEXTROSE 5%-WATER - 250 ML IVPB ONE ×2 (18:33→18:41)
[2016-05-15] MEDS: VANCOMYCIN 1,000 MG in DEXTROSE 5%-WATER - 250 ML IVPB ONE ×2 (18:54→20:30)
[2016-05-15] MEDS ORDERED: KETOROLAC TROMETHAMINE 30 MG/1 ML VIAL IVPUSH ONE (18:57)
[2016-05-15] MEDS ORDERED: AZITHROMYCIN IVPB 250 ML IVPB ONE (18:57)
--- NOTE | 2016-05-15 18:57 | PDOC ---
*Physical Exam - Vital Signs Last Vital Signs Temp Pulse Resp BP Pulse Ox 97.6 F 110 H 36 H 138/79 98 05/15/16 15:58 05/15/16 15:58 05/15/16 15:58 05/15/16 15:58 05/15/16 16:07 <Eric Rucker - Last Filed: 05/15/16 18:55> - Vital Signs Last Vital Signs Temp Pulse Resp BP Pulse Ox 97.8 F 104 H 20 140/71 100 05/16/16 08:03 05/16/16 08:03 05/16/16 08:06 05/16/16 08:03 05/16/16 08:06 <Fredis Omalley - Last Filed: 05/16/16 09:33> ED Treatment Course - LABORATORY CBC & Chemistry Diagram: 05/15/16 16:12 05/15/16 16:12 - ADDITIONAL ORDERS Additional order review: Laboratory Results 05/15/16 05/15/16 05/15/16 17:00 16:17 16:12 Sodium 135 L Potassium 4.7 D Chloride 91 L Carbon Dioxide 30 Anion Gap 14 BUN 7 D Creatinine 0.5 L Creat Clearance w eGFR > 60 Random Glucose 103 D Calcium 8.4 L Total Bilirubin 0.3 AST 22 D ALT 21 D Alkaline Phosphatase 88 Creatine Kinase 33 Troponin I < 0.02 B-Natriuretic Peptide 84.58 Total Protein 6.5 Albumin 3.1 L Urine Color Straw Urine Appearance Clear Urine pH 6.0 Ur Specific [place] 1.003 Urine Protein Negative Urine Glucose (UA) Negative Urine Ketones Negative Urine Blood Negative Urine Nitrite Negative Urine Bilirubin Negative Urine Urobilinogen Negative Ur Leukocyte Esterase 1+ H Urine RBC 2 Urine WBC 3 Ur Epithelial Cells Rare 05/15/16 16:12 RBC 3.85 MCV 108.1 H MCHC 32.8 RDW 14.9 MPV 6.9 L Neutrophils % 66.0 D Lymphocytes % 21.0 D Monocytes % 8.0 D Eosinophils % 2.0 - RADIOLOGY Radiology Studies Ordered: Category Date Time Status CHEST CTA [CT] Stat CT Scan 05/15/16 17:49 Taken CHEST X-RAY PORTABLE* [RAD] Stat Radiology 05/15/16 16:06 Taken RIBS BILATERAL [RAD] Stat Radiology 05/15/16 16:24 Taken DUPLEX VASCUL US-2LEGS [US] Stat Ultrasound 05/15/16 16:32 Taken - Medications Given in the ED: ED Medications Discontinued Medications Generic Name Dose Route Start Last Admin Trade Name Freq PRN Reason Stop Dose Admin Cefepime HCl 1 gm 05/15/16 18:32 05/15/16 18:53 Maxipime (Restricted To Id) - IVPB 05/15/16 18:33 Not Given ONCE ONE Protocol Cefepime HCl 1 gm 05/15/16 18:41 05/15/16 18:54 Maxipime (Restricted To Id) - IVPB 05/15/16 18:42 1 gm ONCE ONE Administration Protocol Azithromycin 500 mg/ Dextrose 250 mls @ 250 mls/hr 05/15/16 18:33 05/15/16 18: 54 IVPB 05/15/16 19:32 Not Given ONCE ONE Vancomycin HCl 1,000 mg/ 250 mls @ 250 mls/hr 05/15/16 18:32 05/15/16 18:53 Dextrose IVPB 05/15/16 19:31 Not Given ONCE ONE Protocol <Eric Rucker - Last Filed: 05/15/16 18:55> - LABORATORY CBC & Chemistry Diagram: 05/16/16 05:35 05/16/16 05:35 - ADDITIONAL ORDERS Additional order review: 05/15/16 16:12 RBC 3.85 MCV 108.1 H MCHC 32.8 RDW 14.9 MPV 6.9 L Neutrophils % 66.0 D Lymphocytes % 21.0 D Monocytes % 8.0 D Eosinophils % 2.0 - Medications Given in the ED: ED Medications Discontinued Medications Generic Name Dose Route Start Last Admin Trade Name Freq PRN Reason Stop Dose Admin Cefepime HCl 1 gm 05/15/16 18:32 05/15/16 18:53 Maxipime (Restricted To Id) - IVPB 05/15/16 18:33 Not Given ONCE ONE Protocol Cefepime HCl 1 gm 05/15/16 18:41 05/15/16 18:54 Maxipime (Restricted To Id) - IVPB 05/15/16 18:42 1 gm ONCE ONE Administration Protocol Furosemide 40 mg 05/15/16 20:57 05/15/16 21:50 Lasix Injection - IVPB 05/15/16 20:58 40 mg ONCE ONE Administration Azithromycin 500 mg/ Dextrose 250 mls @ 250 mls/hr 05/15/16 18:33 05/15/16 18: 54 IVPB 05/15/16 19:32 Not Given ONCE ONE Vancomycin HCl 1,000 mg/ 250 mls @ 250 mls/hr 05/15/16 18:32 05/15/16 18:53 Dextrose IVPB 05/15/16 19:31 Not Given ONCE ONE Protocol Azithromycin 500 mg/ Dextrose 250 mls @ 250 mls/hr 05/15/16 18:41 05/15/16 18: 54 IVPB 05/15/16 19:40 250 mls/hr ONCE ONE Administration Vancomycin HCl 1,000 mg/ 250 mls @ 250 mls/hr 05/15/16 18:40 05/15/16 20:30 Dextrose IVPB 05/15/16 19:39 250 mls/hr ONCE ONE Administration Protocol Ketorolac Tromethamine 30 mg 05/15/16 18:57 05/15/16 19:09 Toradol Injection - IVPUSH 05/15/16 18:58 30 mg ONCE ONE Administration <Fredis Omalley - Last Filed: 05/16/16 09:33> Medical Decision Making - Medical Decision Making 05/15/16 18:55 Acute slightly displaced fx of posterior aspect of R 5th rib as per radiology, no pneumo <Eric Rucker - Last Filed: 05/15/16 18:55> - Medical Decision Making 05/16/16 09:33 The patient was seen and evaluated in conjunction with CONOR Rucker under my direct supervision, ancillary studies were reviewed. I independently interviewed and evaluated the patient and I agree with the plan as outlined by CONOR Rucker . <Fredis Omalley - Last Filed: 05/16/16 09:33> *DC/Admit/Observation/Transfer <Eric Rucker - Last Filed: 05/15/16 18:55> <Fredis Omalley - Last Filed: 05/16/16 09:33> Diagnosis at time of Disposition: Chest pain Qualifiers: Chest pain type: unspecified Qualified Code(s): R07.9 - Chest pain, unspecified Right rib fracture Qualifiers: Encounter type: initial encounter Rib fracture type: single rib Fracture type: closed Qualified Code(s): S22.31XA - Fracture of one rib, right side, initial encounter for closed fracture - Discharge Dispostion Condition at time of disposition: Fair
[2016-05-15] MEDS ORDERED: VANCOMYCIN 1 GRAM (PRE-DOCKED) 250 ML IVPB ONE (18:58)
[2016-05-15] MEDS ORDERED: CEFEPIME 100 ML IVPB ONE (18:58)
[2016-05-15] MEDS ORDERED: KETOROLAC TROMETHAMINE 30 MG/1 ML VIAL ONE (19:10)
--- NOTE | 2016-05-15 19:38 | PN ---
<Jerel Emerson - Last Filed: 05/15/16 19:38> Teaching Attending Note Name of Resident: Jewell Wolff ATTENDING PHYSICIAN STATEMENT I saw and evaluated the patient. I reviewed the resident's note and discussed the case with the resident. I agree with the resident's findings and plan as documented. SUBJECTIVE: OBJECTIVE: ASSESSMENT AND PLAN: <Daisy Sanders - Last Filed: 05/15/16 21:24> Teaching Attending Note ATTENDING PHYSICIAN STATEMENT I saw and evaluated the patient. I reviewed the resident's note and discussed the case with the resident. I agree with the resident's findings and plan as documented. SUBJECTIVE: Patient is a 60 yo F with a PMHx of morbid obesity, hypertension, sleep apnea, COPD on oxygen, pneumonia (04/09-C/B resp failure /hypercapnia) presents with right sided chest pain for two weeks that worsened yesterday. Two weeks ago, patient reports she had a mechanical fall down 1 flight of stairs and landed on her right side. Patient denies head trauma and LOC. Patient states the pain radiates toward her right shoulder blade and is worsened with movement and cough. Patient also reports associated LE edema and shallow breathing. Denies pain in legs. Patient reports she was provided a water pill by her preventive medicine specialist but she never took it. Denies: fevers, rigors, diaphoresis, abdominal pain, and headache. Social Hx: Former Smoker 1 ppd for 40 years, quit one year ago. OBJECTIVE: Last Vital Signs Temp Pulse Resp BP Pulse Ox 97.7 F 102 H 20 129/71 97 05/15/16 19:08 05/15/16 19:08 05/15/16 19:08 05/15/16 19:08 05/15/16 19:08 GENERAL: Awake, alert, and fully oriented, in no acute distress. Morbid obesity. Unkept. Foul smelling. HEENT: Atraumatic. Moist mucosa. Normocephalic. No sinus tenderness. No LAD. NECK: No JVD. No thyroid masses. Supple. LUNGS: Clear to auscultation bilaterally. No wheezing, rhonchi or rales. HEART: Regular rate and rhythm, normal S1 and S2, no murmurs, rubs or gallops, peripheral pulses normal and equal bilaterally. ABDOMEN: Obese, nontender, normoactive bowel sounds. No guarding, no rebound. No Masses. MUSCULOSKELETAL: No joint tenderness or erythema. No muscle tenderness. Normal muscle bulk and tone. EXTREMITIES: Normal inspection, 2+ pitting edema bilaterally. No clubbing or cyanosis. Moves all extremities. NEUROLOGICAL: Normal speech, normal gait, no focal sensorimotor deficits. SKIN: Warm, dry, normal turgor, no rashes or lesions noted. CBCD WBC 11.5 K/mm3 (4.0-10.0) H D 05/15/16 16:12 RBC 3.85 M/mm3 (3.60-5.2) 05/15/16 16:12 Hgb 13.7 GM/dL (10.7-15.3) D 05/15/16 16:12 Hct 41.7 % (32.4-45.2) 05/15/16 16:12 MCV 108.1 fl (80-96) H 05/15/16 16:12 MCHC 32.8 g/dl (32.0-36.0) 05/15/16 16:12 RDW 14.9 % (11.6-15.6) 05/15/16 16:12 Plt Count 277 K/MM3 (134-434) 05/15/16 16:12 MPV 6.9 fl (7.5-11.1) L 05/15/16 16:12 CMP Sodium 135 mmol/L (136-145) L 05/15/16 16:12 Potassium 4.7 mmol/L (3.5-5.1) D 05/15/16 16:12 Chloride 91 mmol/L (98-107) L 05/15/16 16:12 Carbon Dioxide 30 mmol/L (21-32) 05/15/16 16:12 Anion Gap 14 (8-16) 05/15/16 16:12 BUN 7 mg/dL (7-18) D 05/15/16 16:12 Creatinine 0.5 mg/dL (0.55-1.02) L 05/15/16 16:12 Creat Clearance w eGFR > 60 (>60) 05/15/16 16:12 Calcium 8.4 mg/dL (8.5-10.1) L 05/15/16 16:12 Total Bilirubin 0.3 mg/dL (0.2-1.0) 05/15/16 16:12 AST 22 U/L (15-37) D 05/15/16 16:12 ALT 21 U/L (12-78) D 05/15/16 16:12 Alkaline Phosphatase 88 U/L (45-117) 05/15/16 16:12 Total Protein 6.5 g/dl (6.4-8.2) 05/15/16 16:12 Albumin 3.1 g/dl (3.4-5.0) L 05/15/16 16:12 ASSESSMENT AND PLAN: Patient is a 60 yo F who is s/p mechanical fall two weeks ago with R 4tha and 5th rib Fx with a PMHx of morbid obesity, HTN, sleep apnea, COPD on oxygen, pneumonia presents with atypical right-sided chest pain radiating to the right shoulder worsened with inspiration and movement. bilateral atelectasis likely from shallow breaths secondary to pain 1.) Right 4th and 5th rib Fx with atypical chest pain r/o ACS -No acute ST or T changes on ECg -Troponin negative x1 -Admit to Obs/Tele -Serial troponins -Morphine 2 mg IV PRN for Fx -Incentive spirometry -PE is ruled out with CT angiography 2.) Bilateral LE edema. Wells score 2 -Acute on chronic -May be secondary to Ca2+ channel hui vs venous stasis secondary to COPD with resultant pulmonary HTN and right heart -failure -Follow up duplex of LE to r/o DVT -1 time dose IV lasix 40 mg STAT -Change home medication from amlodipine to alternative antihypertensive medication (can cause LE edema) -LE elevation -Transthoracic Echo when feasible to evaluate for heart failure 3.) COPD Controlled -No signs of exacerbation -Continue home meds -Continue nasal cannula 2L O2 daily 4.) Unstable Gait with recurrent falls -Fall precautions -Rehab evaluation when feasible for gait assessment and possible gait assistance 5.) Sleep apnea -Outpatient sleep study 6) HTN -Controlled -Switch from amlodipine to Hydrochlorothiazide 25 mg daily DVT ppx -Low/Moderate risk -Heparin 5000 Units Q 12 Diet -Sodium controlled -Low fat Documentation prepared by Daisy Sanders, acting as medical staff physician for Jerel Emerson M.D.
[2016-05-15] MEDS ORDERED: ALBUTEROL SO4 6.7 GM HFA INHALER IH PRN ×2 (20:35→20:40)
[2016-05-15] MEDS ORDERED: FUROSEMIDE 40 MG/4 ML INJECTABLE VIAL IVPB ONE (20:57)
--- NOTE | 2016-05-15 20:57 | HP ---
CHIEF COMPLAINT: Right sided chest pain PCP: Dr. Kris Omalley ( [facility]) Director [facility] at [facility] HISTORY OF PRESENT ILLNESS: Patient is a 60- year old female presented with the chief complaints of right sided chest pain and B/L leg swelling. As per the patient, she had a mechanical fall 2 weeks ago, tripped and fell from a flight of stairs and landed on the right side. Since then she has been having severe right sided pain, especially in the right axillary area and under the right breast, radiating towards the right scapula, 10/10 in intensity on movement, aggravated by laughing, coughing and any strenous activities. Patient never went to the ER. No h/o head trauma, no loc, dizziness, tingling, numbness or blurring of vision. States that she has had shallow breathing since the fall, has difficulty in breathing especially while taking deep breaths. Patient mentions that she was diagnosed with sleep apnea but not on CPAP. Because of the sleep apnea and the mechanical fall, her breathing has been difficult. Patient was admitted on 03/26/16 for RLL pneumonia, Hyponatremia, increased troponins for demand ischemia. She had a mechanical fall at the end of February, injuring her ribs, R knee and R wrist. Patient has a h/o leg swelling but started noticing it getting worse since 1 week Left >Right. It was not associated with pain. Has no h/o CHF. Went to her [facility] last October, echo and cardiac work up was done which was negative and was given diuretics but stopped taking the medication as per the patient. Also states of nocturnia 3-4 times a night but no other urinary symptoms. Bowel habit normal. Appetite Normal. Sleep disturbed since the fall. ER course was notable for: (1) Afebrile, Slight leukocytosis (11.5); Troponin x 1 negative (2) EKG- Sinus tachycardia, right bundle branch block; CTA- Negative for PE; Doppler of b/l extremities (3) IV Azithromycin; Cefepime, Vancomyci, Ketorolac Recent Travel: None PAST MEDICAL HISTORY: Hypertension, Sleep apnea, COPD on home oxygen (uses only at night); Pneumonia; chronic back pain PAST SURGICAL HISTORY: None Social History: Smoking: Smoked for 40 yrs, 1-2packs/day, left smoking 1 yr ago Alcohol: 2-3times/week, 2-3beers at one time Drugs: Marijuana in teenager Family History: Unknown Allergies No Known Allergies Allergy (Verified 05/15/16 16:01) HOME MEDICATIONS: Home Medications Medication Instructions Recorded Aclidinium [place] [Tudorza -] 1 puff IH BID #1 inhaler 04/02/16 Albuterol Sulfate Inhaler - 1 - 2 inh PO Q4H PRN #1 inhaler 04/02/16 [Ventolin HFA Inhaler -] Amlodipine Besylate [Norvasc -] 5 mg PO DAILY tablet 04/02/16 Budesonide/Formeterol Fumarate 2 puff IH BID #1 inhaler 04/02/16 [SYMBICORT 160/4.5mcg -] Prednisone 10 mg PO DAILY #26 tablet 04/02/16 REVIEW OF SYSTEMS CONSTITUTIONAL: Absent: fever, chills, diaphoresis, generalized weakness, malaise, loss of appetite, weight change HEENT: Absent: rhinorrhea, nasal congestion, throat pain, throat swelling, difficulty swallowing, mouth swelling, ear pain, eye pain, visual changes CARDIOVASCULAR: Present: chest pain Absent: syncope, palpitations, irregular heart rate, lightheadedness, peripheral edema RESPIRATORY: Present: shortness of breath, dyspnea with exertion Absent: cough, orthopnea, wheezing, stridor, hemoptysis GASTROINTESTINAL: Absent: abdominal pain, abdominal distension, nausea, vomiting, diarrhea, constipation, melena, hematochezia GENITOURINARY: Present: Nocturia Absent: dysuria, frequency, urgency, hesitancy, hematuria, flank pain, genital pain MUSCULOSKELETAL: Absent: myalgia, arthralgia, joint swelling, back pain, neck pain SKIN: Absent: rash, itching, pallor HEMATOLOGIC/IMMUNOLOGIC: Absent: easy bleeding, easy bruising, lymphadenopathy, frequent infections ENDOCRINE: Absent: unexplained weight gain, unexplained weight loss, heat intolerance, cold intolerance NEUROLOGIC: Absent: headache, focal weakness or paresthesias, dizziness, unsteady gait, seizure, mental status changes, bladder or bowel incontinence PSYCHIATRIC: Absent: anxiety, depression, suicidal or homicidal ideation, hallucinations. PHYSICAL EXAMINATION Vital Signs - 24 hr 05/15/16 19:08 Temperature 97.7 F Pulse Rate 102 H Respiratory 20 Rate Blood Pressure 129/71 O2 Sat by Pulse 97 Oximetry (%) GENERAL: Morbidly obese female, Awake, alert, and fully oriented, in no acute distress. HEAD: Normal with no signs of trauma. EYES: EOM intact, no pallor or icterus. EARS, NOSE, THROAT: Ears normal, nares patent, oropharynx clear without exudates. Moist mucous membranes. NECK: Normal range of motion, supple without lymphadenopathy, JVD, or masses. LUNGS: Breath sounds equal, decreased breath sounds due to poor inspiratory/ expiratory effort. No wheezes, and no crackles. No accessory muscle use, tenderness on palpation over the right 4th-5th rib. HEART: Tachycardic, Regular rate and rhythm, normal S1 and S2 without murmur, rub or gallop. ABDOMEN: Soft, nontender, not distended, normoactive bowel sounds, no guarding, no rebound, no masses. No hepatomegaly or splenomegaly. MUSCULOSKELETAL: Normal range of motion at all joints. No bony deformities or tenderness. No CVA tenderness. UPPER EXTREMITIES: 2+ pulses, warm, well-perfused. No cyanosis. No clubbing. No peripheral edema. LOWER EXTREMITIES: 2+ pulses, warm, well-perfused. No calf tenderness. +2 pitting edema in bilateral lower extremities up to mid dempsey. Dry scaly skin over the foot NEUROLOGICAL: Cranial nerves II-XII intact. Normal speech. Normal gait. PSYCHIATRIC: Cooperative. Good eye contact. Appropriate mood and affect. SKIN: Warm, dry, normal turgor, no rashes or lesions noted, normal capillary refill. ASSESSMENT/PLAN: Patient is a 60- year old female presented with significant past medical history of Hypertension, Sleep apnea, COPD on home oxygen (uses only at night); Pneumonia; chronic back pain with the chief complaints of right sided chest pain and B/L leg swelling. # Right sided chest pain-s/p mechanical fall R/O ACS Patient presented with severe right sided pain x 2 weeks, aggravated on movement and any strenous activities, shallow breathing On arrival, she was Afebrile, Slight leukocytosis (11.5); Troponin x 1 negative EKG- Sinus tachycardia, right bundle branch block Suspicious for PE hence CTA was done in the ED which was negative for PE In the ED, patient was given IV Azithromycin; Cefepime, Vancomyci, Ketorolac Placed on observation in Telemetry continuous cardiac monitoring. Troponin x 2 negative Morphine 2mg Q4H PRN for pain # B/L lower extremity swelling R/O DVT Doppler of b/l extremities pending IV Lasix 40mg stat given R/O cardiac cause of lower extremity- ordered ECHO # Slight Leukocytosis Could possibly be from steroid use CXR doesn't show pneumonia; UA-negative for UTI, no urinary symptoms. # Hypertension Patient is on Amlodipine 5mg which could cause lower extremity swelling. So will discontinue and start Hydrochlorothiazide 25mg Daily. # COPD- Stable Maintaining saturation with 2L nasal oxygen On home oxygen therapy-uses only at night @ 2L Continue Tudorza, Albuterol, Symbicort, Prednisone 10mg Daily. # R/O Hyperlipidemia Lipid profile ordered for am # R/O DM HbA1c ordered for am # Sleep Apnea Not on CPAP Would benefit if she is on CPAP. Would consider outpatient follow up with specialist # Gait instability Patient had a mechanical fall 2 times within 2 months period. PT evaluation for gait instability # FEN Not on IV fluids Electrolytes to be repeated in am Sodium controlled diet # Prophylaxis For DVT- On Heparin 5000IU sq For GI- Not indicated # Code Status- Full Code # Dispo: Placed on observation in Telemetry. If symptoms resolve can be discharged in 1-2 days with f/up with [facility]. Illness, Investigation and Plan of care explained to the patient. She verbalized understanding. Case seen and discussed with Dr. Emerson. Visit type - Emergency Visit Emergency Visit: Yes ED Registration Date: 05/15/16 Care time: The patient presented to the Emergency Department on the above date and was hospitalized for further evaluation of their emergent condition. - New Patient This patient is new to me today: Yes Date on this admission: 05/15/16 - Critical Care Critical Care patient: No
[2016-05-15] MEDS: morphine CARPU-JECT 2 MG/1 ML DISP.SYRIN IVPUSH PRN (21:49)
[2016-05-15] MEDS: HEPARIN NA (PORCINE) 5,000 UNITS/ML 1ML VIAL SQ SCH (21:50)
[2016-05-15] MEDS: HYDROCHLOROTHIAZIDE 25 MG TABLET (FP) PO SCH (21:51)
[2016-05-15] MEDS: predniSONE 10 MG TABLET (UD) PO SCH (21:51)
[2016-05-15] MEDS: ACLIDINIUM BROMIDE 400 MCG/INH AERO.POWD IH SCH (21:51)
[2016-05-16] MEDS: morphine CARPU-JECT 2 MG/1 ML DISP.SYRIN IVPUSH PRN ×2 (02:21→06:28)
[2016-05-16] MEDS: HEPARIN NA (PORCINE) 5,000 UNITS/ML 1ML VIAL SQ SCH ×3 (06:28→21:38)
[2016-05-16 07:28] LABS: MCH 36.4 pg (25.7-33.7); MCHC 33.7 g/dl (32.0-36.0); MEAN CELL VOLUME 108.1 fl (80-96); MEAN PLT VOLUME 7.1 fl (7.5-11.1); PLATELET COUNT 253 K/MM3 (134-434); RDW 15.4 % (11.6-15.6)
[2016-05-16 07:41] LABS: WHITE BLOOD COUNT 7.1 K/mm3 (4.0-10.0)
[2016-05-16 08:02] LABS: ANION GAP 9 (8-16); CO2 34 mmol/L (21-32); MAGNESIUM 1.7 mg/dL (1.8-2.4)
[2016-05-16 08:09] LABS: ALBUMIN 3.2 g/dl (3.4-5.0); ALK PHOS 93 U/L (45-117); BILIRUBIN,TOTAL 0.5 mg/dL (0.2-1.0); CALCIUM 8.9 mg/dL (8.5-10.1); CHOLESTEROL 182 mg/dL (50-200); CREATININE 0.5 mg/dL (0.55-1.02); GLUCOSE,RANDOM 115 mg/dL (74-106); LDL CHOLESTEROL (ONLY SJRH) 107 mg/dL (5-100); PHOSPHOROUS 4.7 mg/dL (2.5-4.9); SGOT/AST 21 U/L (15-37); SGPT/ALT 23 U/L (12-78); TOT PROT 6.5 g/dl (6.4-8.2)
[2016-05-16] MEDS: predniSONE 10 MG TABLET (UD) PO SCH (09:19)
[2016-05-16] MEDS: HYDROCHLOROTHIAZIDE 25 MG TABLET (FP) PO SCH (09:20)
[2016-05-16] MEDS: ACLIDINIUM BROMIDE 400 MCG/INH AERO.POWD IH SCH ×2 (09:21→21:37)
--- NOTE | 2016-05-16 10:05 | CON.CARD ---
Consult Consult Specialty:: Cardiology Referred by:: Hospitalist Reason for Consultation:: Cardiac evaluation - History of Present Illness Chief Complaint: Right chest pain History of Present Illness: Patient is a 60 year old female with exogenous obesity and underlying history of COPD, obstructive sleep apnea, hypertension and previous history of pneumonia. She complains of right sided chest pain referable to rib fracture resulted from a fall from a flight of stairs landing on her right side. She states that she has been having shallow breath since the fall and difficulty taking deep breath. She has had RLL pneumonia in March and was treated with antibiotics. She also had demand ischemia at that time. She has had cardiac work up by a local insurance underwriter sales and work up presumably appears to be negative ( according to patient). Currently she denies paroxysmal nocturnal dyspnea or orthopnea. Denies fever or chills. Denies headache or lightheadedness. Cardiology consultation was called for further evaluation. - History Source History Provided By: Patient, Medical Record Limitations to Obtaining History: No Limitations - Past Medical History Cardio/Vascular: Yes: HTN Pulmonary: Yes: COPD, Sleep Apnea - Alcohol/Substance Use Hx Alcohol Use: Yes (DAILY BEER) - Smoking History Smoking history: Former smoker Have you smoked in the past 12 months: Yes Aproximately how many cigarettes per day: 20 If you are a former smoker, when did you quit?: 1 YEAR AGO Home Medications - Allergies Allergies/Adverse Reactions: Allergies Allergy/AdvReac Type Severity Reaction Status Date / Time No Known Drug Allergies Allergy Verified 12/24/15 09:40 - Home Medications Home Medications: Ambulatory Orders Amlodipine Besylate 5 mg PO ACDIN 12/22/15 Cholecalciferol (Vitamin D3) [Vitamin D3] 2,000 unit PO DAILY 12/22/15 Hydrochlorothiazide [Hctz -] 25 mg PO DAILY 12/22/15 Multivit-Min/Iron Fum/Folic AC [Hiils-Tfehkll-Lhhfiuwv Tablet] 1 each PO DAILY 12/22/15 Vitamin B Complex [Super B-50 Complex] 1 each PO DAILY 12/22/15 Aclidinium [place] [Tudorza -] 1 puff IH BID #1 inhaler 04/02/16 Albuterol Sulfate Inhaler - [Ventolin HFA Inhaler -] 1 - 2 inh PO Q4H PRN #1 inhaler 04/02/16 Amlodipine Besylate [Norvasc -] 5 mg PO DAILY tablet 04/02/16 Budesonide/Formeterol Fumarate [SYMBICORT 160/4.5mcg -] 2 puff IH BID #1 inhaler 04/02/16 Prednisone 10 mg PO DAILY #26 tablet 04/02/16 Family Disease History - Family Disease History Family History: Denies Review of Systems - Review of Systems Constitutional: denies: Chills, Fever Cardiovascular: reports: Chest Pain. denies: Palpitations, Shortness of Breath Respiratory: denies: Cough, Hemoptysis, Orthopnea, PND, SOB, SOB on Exertion Gastrointestinal: denies: Abdominal Pain, Constipation, Diarrhea, Melena, Nausea , Rectal Bleeding, Vomiting Musculoskeletal: denies: Joint Pain Neurological: denies: Dizziness, Headache, Numbness, Seizure, Syncope, Tremors Vital Signs: Vital Signs Temperature 97.8 F 05/16/16 08:03 Pulse Rate 104 H 05/16/16 08:03 Respiratory Rate 20 05/16/16 08:06 Blood Pressure 140/71 05/16/16 08:03 O2 Sat by Pulse Oximetry (%) 100 05/16/16 08:06 Neck: Yes: Supple Respiratory: Yes: Diminished Gastrointestinal: Yes: Normal Bowel Sounds, Soft, Abdomen, Obese. No: Tenderness Cardiovascular: Yes: Regular Rate and Rhythm JVD: No Carotid Bruit: No PMI: Non-Displaced Heart Sounds: Yes: S1, S2 Edema: Yes Edema: LLE: 1+, RLE: 1+ - Other Data Labs, Other Data: CBC, BMP 05/16/16 05:35 05/16/16 05:35 INR, PTT INR 1.00 (0.82-1.09) 05/16/16 05:35 Troponin, BNP 05/16/16 00:30 Troponin I < 0.02 Sinus tachycardia with RBBB Echo: Pending Imaging - Results Chest X-ray: Report Reviewed (Right rib fracture) EKG: Report Reviewed Problem List - Problems (1) Chest pain Code(s): R07.9 - CHEST PAIN, UNSPECIFIED Qualifiers: Chest pain type: unspecified Qualified Code(s): R07.9 - Chest pain, unspecified (2) Pleural effusion Code(s): J90 - PLEURAL EFFUSION, NOT ELSEWHERE CLASSIFIED (3) Right rib fracture Code(s): S22.31XA - FRACTURE OF ONE RIB, RIGHT SIDE, INIT FOR CLOS FX Qualifiers: Encounter type: initial encounter Rib fracture type: single rib Fracture type: closed Qualified Code(s): S22.31XA - Fracture of one rib, right side, initial encounter for closed fracture (4) HTN (hypertension) Code(s): I10 - ESSENTIAL (PRIMARY) HYPERTENSION Qualifiers: Hypertension type: essential hypertension Qualified Code(s): I10 - Essential (primary) hypertension (5) Sleep apnea, obstructive Code(s): G47.33 - OBSTRUCTIVE SLEEP APNEA (ADULT) (PEDIATRIC) Assessment/Plan 1. Right side chest pain due to right rib fracture secondary to mechanical fall , no LOC 2. Hypertension 3. COPD and obstructive sleep apnea 4. Pedal edema and pleural effusion etiology to be determined rule out LV failure PLAN: 1. Transthoracic echocardiography to assess LV and valvular function 2. Diuretics as needed 3. Bronchodilators, nebulizer and steroids 4. Consider starting Cardizem Further plans are to follow Thom Marin MD
--- NOTE | 2016-05-16 11:32 | PN ---
Progress Note (short form) - Note Progress Note: Subjective: no fever or chills , no abd pain , has chest pain at site of fractures. LE edema worsened since she had her fx. she denies cough, SOB , or sputum production Objective: Vital Signs: Last Vital Signs Temp Pulse Resp BP Pulse Ox 97.8 F 104 H 20 140/71 100 05/16/16 08:03 05/16/16 08:03 05/16/16 08:06 05/16/16 08:03 05/16/16 08:06 Physical Exam: NAD , AAOx3 HEENT: NC , AT, MMM, fullness on lower neck on both sides LUngs: decreased breath sounds at R base , no crackles or rales Ext : 1+ edema and tenderness on both legs Labs: Laboratory Results - last 24 hr 05/15/16 05/15/16 05/15/16 16:12 16:12 16:17 WBC 11.5 H D RBC 3.85 Hgb 13.7 D Hct 41.7 MCV 108.1 H MCHC 32.8 RDW 14.9 Plt Count 277 MPV 6.9 L Neutrophils % 66.0 D Lymphocytes % 21.0 D Monocytes % 8.0 D Eosinophils % 2.0 Band Neutrophils 2.0 D Myelocytes 1 Platelet Estimate Adequate Platelet Comment No clumping noted Polychromasia Few Anisocytosis 1+ Macrocytosis 1+ INR Sodium 135 L Potassium 4.7 D Chloride 91 L Carbon Dioxide 30 Anion Gap 14 BUN 7 D Creatinine 0.5 L Creat Clearance w eGFR > 60 Random Glucose 103 D Hemoglobin A1c % Calcium 8.4 L Phosphorus Magnesium Total Bilirubin 0.3 AST 22 D ALT 21 D Alkaline Phosphatase 88 Creatine Kinase 33 Troponin I < 0.02 B-Natriuretic Peptide Total Protein 6.5 Albumin 3.1 L Triglycerides Cholesterol Total LDL Cholesterol HDL Cholesterol Urine Color Straw Urine Appearance Clear Urine pH 6.0 Ur Specific [place] 1.003 Urine Protein Negative Urine Glucose (UA) Negative Urine Ketones Negative Urine Blood Negative Urine Nitrite Negative Urine Bilirubin Negative Urine Urobilinogen Negative Ur Leukocyte Esterase 1+ H Urine RBC 2 Urine WBC 3 Ur Epithelial Cells Rare 05/15/16 05/16/16 05/16/16 17:00 00:30 05:35 WBC 7.1 D RBC 3.75 Hgb 13.6 Hct 40.5 MCV 108.1 H MCHC 33.7 RDW 15.4 Plt Count 253 MPV 7.1 L Neutrophils % Y Lymphocytes % Y Monocytes % Eosinophils % Band Neutrophils Myelocytes Platelet Estimate Platelet Comment Polychromasia Anisocytosis Macrocytosis INR Sodium Potassium Chloride Carbon Dioxide Anion Gap BUN Creatinine Creat Clearance w eGFR Random Glucose Hemoglobin A1c % Calcium Phosphorus Magnesium Total Bilirubin AST ALT Alkaline Phosphatase Creatine Kinase Troponin I < 0.02 B-Natriuretic Peptide 84.58 Total Protein Albumin Triglycerides Cholesterol Total LDL Cholesterol HDL Cholesterol Urine Color Urine Appearance Urine pH Ur Specific [place] Urine Protein Urine Glucose (UA) Urine Ketones Urine Blood Urine Nitrite Urine Bilirubin Urine Urobilinogen Ur Leukocyte Esterase Urine RBC Urine WBC Ur Epithelial Cells 05/16/16 05/16/16 05/16/16 05:35 05:35 05:35 WBC RBC Hgb Hct MCV MCHC RDW Plt Count MPV Neutrophils % Lymphocytes % Monocytes % Eosinophils % Band Neutrophils Myelocytes Platelet Estimate Platelet Comment Polychromasia Anisocytosis Macrocytosis INR 1.00 Sodium 134 L Potassium 4.6 Chloride 91 L Carbon Dioxide 34 H Anion Gap 9 BUN 6 L Creatinine 0.5 L Creat Clearance w eGFR > 60 Random Glucose 115 H Hemoglobin A1c % 6.4 H Calcium 8.9 Phosphorus 4.7 D Magnesium 1.7 L D Total Bilirubin 0.5 D AST 21 ALT 23 Alkaline Phosphatase 93 Creatine Kinase Troponin I B-Natriuretic Peptide Total Protein 6.5 Albumin 3.2 L Triglycerides 185 H D Cholesterol 182 D Total LDL Cholesterol 107 H HDL Cholesterol 61 H D Urine Color Urine Appearance Urine pH Ur Specific [place] Urine Protein Urine Glucose (UA) Urine Ketones Urine Blood Urine Nitrite Urine Bilirubin Urine Urobilinogen Ur Leukocyte Esterase Urine RBC Urine WBC Ur Epithelial Cells Imaging: CT , cxray , and rib xray images reviewed. last CT and echo reviewed. Assessment/Plan: 60 y/o lady with h/o HTN, AREN, COPD , recent admission for copd exa in , recent R rib Fx 2/2 fall 2 weeks ago, who rpesneted with worsening R chest pain and LE edema 1- worsening LE edema : norvasc can cause LE edema , but it will not explain the R pleural effusion. She might have diastolic dysfunction causing that although the lungs are clear and there is no increased O2 requirement she does not have any signs of tamponade ( small pericardial effusion on last echo in mar ) - check echo to evaluate EF, pericardial effusion - agree withholding norvasc. - will try a dose of lasix - awaiting card Recs 2- R pericardial effusion : as mentioned above, need to r/u diastolic heart failure . pt has no clinical signs or sx or PNA . she had pericardial effusion onlast echo, not sure if there is a viral or inflammatory process happening - check ESR, MICHELLE - repeat Echo - will consult IR for diagnostic thoracocentesis - no abx needed 3- h/o COPD " cont inhalers and nebs cont O2 ( requires 3 L at home ) cont prednisone at home dose 4- HTN : - was started on HCTZ last night . agree - hold norvasc for now pending w/u for LE edema 5- R rib Fx ; due to mechanical fall ( missed a step ) - dc morphine - start ibuprofen as needed HLOC Meds were confirmed with pt Visit type - Emergency Visit Emergency Visit: Yes ED Registration Date: 05/15/16 Care time: The patient presented to the Emergency Department on the above date and was hospitalized for further evaluation of their emergent condition. - New Patient This patient is new to me today: No - Critical Care Critical Care patient: No
[2016-05-16] MEDS ORDERED: FUROSEMIDE 40 MG TABLET (FP) PO ONE (12:11)
[2016-05-16] MEDS ORDERED: MAGNESIUM SULF 50% (8.12 MEQ/2 ML-1 GM VIAL) IVPB ONE (16:34)
[2016-05-16] MEDS: IBUPROFEN 400 MG TABLET (FP) PO PRN (16:55)
[2016-05-16] MEDS: FLUTICASONE/SALMETEROL 100 MCG/50 MCG DISKUS IH SCH (21:49)
--- NOTE | 2016-05-16 22:31 | EKG ---
Test Reason : Blood Pressure : / mmHG Vent. Rate : 103 BPM Atrial Rate : 103 BPM P-R Int : 176 ms QRS Dur : 120 ms QT Int : 366 ms P-R-T Axes : 043 015 048 degrees QTc Int : 479 ms SINUS TACHYCARDIA RIGHT BUNDLE BRANCH BLOCK ABNORMAL ECG WHEN COMPARED WITH ECG OF 26-MAR-2016 00:26, NO SIGNIFICANT CHANGE WAS FOUND Confirmed by GIORGIO ROBERTS MD ([id number]) on 05/16/2016 10:31:16 PM Referred By: Confirmed By:GIORGIO ROBERTS MD
[2016-05-17] MEDS: IBUPROFEN 400 MG TABLET (FP) PO PRN ×2 (03:15→09:35)
[2016-05-17] MEDS: HEPARIN NA (PORCINE) 5,000 UNITS/ML 1ML VIAL SQ SCH ×3 (06:11→21:50)
[2016-05-17 07:53] LABS: CALCIUM 8.3 mg/dL (8.5-10.1); MAGNESIUM 1.8 mg/dL (1.8-2.4)
[2016-05-17 07:54] LABS: CREATININE 0.4 mg/dL (0.55-1.02)
[2016-05-17] MEDS ORDERED: PT OWN MED DRAWER 7, Y5N ONE (08:46)
[2016-05-17] MEDS: HYDROCHLOROTHIAZIDE 25 MG TABLET (FP) PO SCH (09:35)
[2016-05-17] MEDS: predniSONE 10 MG TABLET (UD) PO SCH (09:35)
[2016-05-17] MEDS: FLUTICASONE/SALMETEROL 100 MCG/50 MCG DISKUS IH SCH ×2 (09:37→21:50)
[2016-05-17] MEDS: ACLIDINIUM BROMIDE 400 MCG/INH AERO.POWD IH SCH ×2 (09:37→21:51)
--- NOTE | 2016-05-17 11:42 | PN ---
Progress Note, Physician History of Present Illness: PULMONARY CONSULTATION DICTAED 05/17/16 IMP R PLERUAL EFFUSION ? ETIOLOGY ,?HEMOTHORAX,?NFECTIOUS,?MALIGNANT MULTIPLE RIB FXS ADVANCED COPD ON O2 CHRONIC HYPOXEMIC RESPIRATORY FAILURE PULMONARY HYPERTENSION LIKELY OSAS MORBID OBESITY PLAN THORACENTESIS ANALGESICS INHALED BRONCODILATORS NASAL O2 DIURETICS SLEEP STUDIES OUTPATIENT PFTS OUTPATIENT DR SOSA - Current Medication List Current Medications: Active Medications Aclidinium [place] (Tudorza -) 1 puff IH BID ON LICENSE OF [facility] Last Admin: 05/17/16 09:37 Dose: 1 puff Albuterol Sulfate (Ventolin Hfa Inhaler -) 2 puff IH Q4H PRN PRN Reason: SHORT OF BREATH/WHEEZING Albuterol Sulfate (Ventolin Hfa Inhaler -) 1 puff IH Q4H PRN PRN Reason: SHORT OF BREATH/WHEEZING Heparin Sodium (Porcine) (Heparin -) 5,000 unit SQ TID ON LICENSE OF [facility] Last Admin: 05/17/16 06:11 Dose: 5,000 unit Hydrochlorothiazide (Hctz -) 25 mg PO DAILY ON LICENSE OF [facility] Last Admin: 05/17/16 09:35 Dose: 25 mg Ibuprofen (Motrin -) 400 mg PO Q8H PRN PRN Reason: PAIN Last Admin: 05/17/16 09:35 Dose: 400 mg Prednisone (Deltasone -) 10 mg PO DAILY ON LICENSE OF [facility] Last Admin: 05/17/16 09:35 Dose: 10 mg Fluticasone/Salmeterol (Advair 100mcg/50mcg -) 1 puff IH BID ON LICENSE OF [facility] Last Admin: 05/17/16 09:37 Dose: 1 puff - Objective Vital Signs: Vital Signs Temperature 97.8 F 05/17/16 07:31 Pulse Rate 90 05/17/16 07:31 Respiratory Rate 20 05/17/16 07:40 Blood Pressure 132/74 05/17/16 07:31 O2 Sat by Pulse Oximetry (%) 93 L 05/17/16 07:40 Labs: CBC, BMP 05/16/16 05:35 05/17/16 05:32 INR, PTT INR 1.00 (0.82-1.09) 05/16/16 05:35 Problem List - Problems (1) Chest pain Code(s): R07.9 - CHEST PAIN, UNSPECIFIED Qualifiers: Chest pain type: unspecified Qualified Code(s): R07.9 - Chest pain, unspecified (2) Right rib fracture Code(s): S22.31XA - FRACTURE OF ONE RIB, RIGHT SIDE, INIT FOR CLOS FX Qualifiers: Encounter type: initial encounter Rib fracture type: single rib Fracture type: closed Qualified Code(s): S22.31XA - Fracture of one rib, right side, initial encounter for closed fracture (3) Abdominal obesity Code(s): E65 - LOCALIZED ADIPOSITY (4) HTN (hypertension) Code(s): I10 - ESSENTIAL (PRIMARY) HYPERTENSION (5) Pulmonary HTN Code(s): I27.2 - OTHER SECONDARY PULMONARY HYPERTENSION (6) Sleep apnea, obstructive Code(s): G47.33 - OBSTRUCTIVE SLEEP APNEA (ADULT) (PEDIATRIC) (7) Volume overload Code(s): E87.70 - FLUID OVERLOAD, UNSPECIFIED (8) Chronic hypoxemic respiratory failure Code(s): J96.11 - CHRONIC RESPIRATORY FAILURE WITH HYPOXIA (9) Pleural effusion Code(s): J90 - PLEURAL EFFUSION, NOT ELSEWHERE CLASSIFIED (10) Morbid obesity due to excess calories Code(s): E66.01 - MORBID (SEVERE) OBESITY DUE TO EXCESS CALORIES
--- NOTE | 2016-05-17 14:26 | PN ---
Teaching Attending Note Name of Resident: Della Noguera ATTENDING PHYSICIAN STATEMENT I saw and evaluated the patient. I reviewed the resident's note and discussed the case with the resident. I agree with the resident's findings and plan as documented. SUBJECTIVE: no fever or chills , no abd pain , still has R sided chest pain. cont to have increased urine out put after diuresis OBJECTIVE: NAD , full neck Cv : RRR,no MRG lungs : CTAB ext : improved 1+ pitting edema on LE with some erythema Microbiology 05/15/16 19:00 Blood Culture - Preliminary Blood - Peripheral Venous NO GROWTH OBTAINED AFTER 24 HOURS, INCUBATION TO CONTINUE FOR 4 DAYS. 05/15/16 19:00 Blood Culture - Preliminary Blood - Peripheral Venous NO GROWTH OBTAINED AFTER 24 HOURS, INCUBATION TO CONTINUE FOR 4 DAYS. ASSESSMENT AND PLAN: 60 y/o lady with h/o HTN, AREN, COPD , recent admission for COPD exa in , recent R rib Fx 2/2 fall 2 weeks ago, who presented with worsening R chest pain and LE edema 1- Worsening LE edema : echo with no obvious diastolic dysfunction , periardial effusion or systolic dysfunction . pt diuresed almost 5 L yesterday and 1600 cc today . - case d/w Dr. Shaikh, not clear of etiology, and suggested to give another lasix dose - will give 20 mg po now 2- R pleural effusion : still not clear of etiology. No signs of infection . ? inflammatory or due to rib fx . - Nl ESR , MICHELLE pending - plan for pleurocentesis - appreciate Pulm recs - no abx needed 3- h/o COPD : no signs of exacerbation cont inhalers and nebs cont O2 ( requires 3 L at home ) cont prednisone at home dose 4- HTN : - cont HCTZ 5- R rib Fx ; due to mechanical fall - ibuprofen as needed PT eval. Dispo plan depends on procedure
--- NOTE | 2016-05-17 15:03 | PN ---
Physical Exam: SUBJECTIVE: Patient seen and examined Patient resting in bed nad. no acute events. afebrile and hemodynamically stable. states she feels better. Suffered mechanical fall prior to admission, broke R ribs, painful to breathe deeply, resided in only comfortable position with legs dangling down and developed edema. denies chest pain, complains of R sided rib pain, deneis h/a, palpitations, diaphoresis, LOC, abd pain, n/v, dysuria. OBJECTIVE: Vital Signs Period Temp Pulse Resp BP Sys/Pride Pulse Ox Last 24 Hr 97.5 F-98.4 F 90-97 20-20 129-143/61-84 93-93 GENERAL: The patient is awake, alert, and fully oriented, in no acute distress. HEAD: Normal with no signs of trauma. EYES: PERRL, extraocular movements intact, sclera anicteric, conjunctiva clear. No ptosis. ENT: moist mucous membranes. NECK: Trachea midline, full range of motion, supple. LUNGS: bibasilar ronchi R>L. tenderness over R ribcage HEART: Regular rate and rhythm, S1, S2 ABDOMEN: Soft, nontender, nondistended, normoactive bowel sounds, no guarding, no rebound, no hepatosplenomegaly, no masses. EXTREMITIES: 2+ pulses, warm, well-perfused, LE 2+ pitting edema. NEUROLOGICAL: Cranial nerves II through XII grossly intact. Normal speech, gait not observed. PSYCH: Normal mood, normal affect. SKIN: Warm, dry Laboratory Results - last 24 hr 05/17/16 05:32 Sodium 136 Potassium 3.7 Chloride 92 L Carbon Dioxide 34 H Anion Gap 10 BUN 6 L Creatinine 0.4 L Random Glucose 98 Calcium 8.3 L Magnesium 1.8 Active Medications Generic Name Dose Route Start Last Admin Trade Name Freq PRN Reason Stop Dose Admin Aclidinium [place] 1 puff 05/15/16 22:00 05/17/16 09:37 Tudorza - IH 1 puff BID GILBERTO Administration Albuterol Sulfate 2 puff 05/15/16 20:35 Ventolin Hfa Inhaler - IH Q4H PRN SHORT OF BREATH/WHEEZING Albuterol Sulfate 1 puff 05/15/16 20:40 Ventolin Hfa Inhaler - IH Q4H PRN SHORT OF BREATH/WHEEZING Heparin Sodium (Porcine) 5,000 unit 05/15/16 22:00 05/17/16 13:51 Heparin - SQ Not Given TID GILBERTO Hydrochlorothiazide 25 mg 05/15/16 20:45 05/17/16 09:35 Hctz - PO 25 mg DAILY GILBERTO Administration Ibuprofen 400 mg 05/16/16 12:06 05/17/16 09:35 Motrin - PO 400 mg Q8H PRN Administration PAIN Prednisone 10 mg 05/15/16 20:45 05/17/16 09:35 Deltasone - PO 10 mg DAILY GILBERTO Administration Fluticasone/Salmeterol 1 puff 05/16/16 22:00 05/17/16 09:37 Advair 100mcg/50mcg - IH 1 puff BID GILBERTO Administration ASSESSMENT/PLAN: This is a 60 yo f with PMH of HTN, Sleep apnea, COPD on home oxygen (2L at night ), recent COPD exacerbation, recent rib fracture due to mechanical fall and chronic back pain, who presented due to right sided chest pain and B/L leg swelling. Right sided chest pain-s/p mechanical fall -EKG Sinus tachycardia, right bundle branch block -CTA negative for PE, R pleural effusion, mediastinal lymphadenopathy same as last study -CXR R pleural effusion -Ribs XR R 4th and 5th rib fracture -Troponin x 2 negative -due to rib fracture -motrin for pain -PT -incentive spirometry R pleural effusion -due to disatolic failure vs rib fracture -plan pleurocenthesis -cxr stat -pulm consult, IR consult -TTE -ESR wnl, manohar p/d B/L LE edema -due to positioning with legs hanging down vs heart failure, vs norvasc side effect -LE duplex no DVT -norvasac held -s/p 2 lasix doses -improved htn Norvasc stopped, ordered Hydrochlorothiazide 25mg Daily. COPD - Stable -2L nc -Continue Tudorza, Albuterol, Symbicort, Prednisone 10mg Daily. Sleep Apnea -Not on CPAP -outpatient pulm follow up Gait instability -Patient had a mechanical fall 2 times within 2 months period. -PT evaluation for gait instability -may need vns FEN no ivf mild hypochloremia Sodium controlled diet Heparin 5000 Dispo: [facility] Problem List - Problems (1) Chest pain Code(s): R07.9 - CHEST PAIN, UNSPECIFIED Qualifiers: Chest pain type: unspecified Qualified Code(s): R07.9 - Chest pain, unspecified (2) Chronic hypoxemic respiratory failure Code(s): J96.11 - CHRONIC RESPIRATORY FAILURE WITH HYPOXIA (3) Morbid obesity due to excess calories Code(s): E66.01 - MORBID (SEVERE) OBESITY DUE TO EXCESS CALORIES (4) Pleural effusion Code(s): J90 - PLEURAL EFFUSION, NOT ELSEWHERE CLASSIFIED (5) Right rib fracture Code(s): S22.31XA - FRACTURE OF ONE RIB, RIGHT SIDE, INIT FOR CLOS FX Qualifiers: Encounter type: initial encounter Rib fracture type: single rib Fracture type: closed Qualified Code(s): S22.31XA - Fracture of one rib, right side, initial encounter for closed fracture (6) Abdominal obesity Code(s): E65 - LOCALIZED ADIPOSITY (7) HTN (hypertension) Code(s): I10 - ESSENTIAL (PRIMARY) HYPERTENSION (8) Sleep apnea, obstructive Code(s): G47.33 - OBSTRUCTIVE SLEEP APNEA (ADULT) (PEDIATRIC) Visit type - Emergency Visit Emergency Visit: Yes ED Registration Date: 05/15/16 Care time: The patient presented to the Emergency Department on the above date and was hospitalized for further evaluation of their emergent condition. - New Patient This patient is new to me today: No - Critical Care Critical Care patient: No - Discharge Referral Referred to [facility] No
--- NOTE | 2016-05-17 15:28 | CONS ---
DATE OF CONSULTATION: 05/17/2016 REFERRING PHYSICIAN: Thi Lopez MD The patient is a 60-year-old white female known to me from previous hospitalization with past medical history of COPD, longstanding history of tobacco use 1-2 packs per day, quit approximately a year ago; history of recent hospitalization secondary to hypercapnic hypoxemic respiratory failure, placed on BiPAP as well as steroids with good clinical response, history of pulmonary hypertension, likely obstructive sleep apnea, admitted to [facility] on May 15, 2016 secondary to right-sided chest pain. Patient was recently hospitalized secondary to COPD exacerbation and hypercapnic respiratory failure. She was discharged home on inhaled bronchodilators and supplemental O2. Apparently, 2 weeks prior to this admission, she fell down the stairs and landed on her right side. Since that time, she has complained of severe right-sided chest pain, increasing with coughing and laughing as well as breathing. Symptoms continued to worsen, at which time, presented to the emergency room with the above. In the ER, she had another CTA chest performed, which revealed evidence of increasing right pleural effusion. She was admitted to the floor for further management. She was also noted on admission to have increasing lower extremity edema and states she was not taking the diuretics. Patient denies any history of occupational exposure to chemicals and fumes. There is no history of DVT or PE in the past. Of note, on previous hospitalization, she was noted to have evidence of pulmonary hypertension with a right ventricular systolic pressure of 40-50 mmHg. The patient does have a history of excessive daytime sleepiness as well as snoring. She is to undergo a sleep study as an outpatient. During the current hospitalization, she was placed on analgesics as well diuretics and inhaled bronchodilators. Past medical history again includes 1. Advanced COPD, on O2. 2. History of hypercapnic hypoxemic respiratory failure. 3. Likely obstructive sleep apnea syndrome 4. Pulmonary hypertension. 5. Morbid obesity. CURRENT MEDICATIONS: Include prednisone 10 mg daily, Advair 100/50, heparin, Tudorza, albuterol, Motrin, and hydrochlorothiazide. PHYSICAL EXAMINATION: General: The patient is an obese white female, well developed, awake, alert, in no acute distress. Vital signs: She is afebrile. Blood pressure is 132/74. O2 saturation is 93% on 3 L nasal cannula. HEENT: Exam is normocephalic, atraumatic. Neck: Supple. Heart: Regular with S1, S2. Chest: Diminished breath sounds bilaterally. Abdomen: Soft, bowel sounds are positive. Extremities: Bilateral extremity edema. LABORATORIES: WBC is 7.1, hemoglobin 13.6, hematocrit 40.5 with a platelet count of 253,000. INR is 1. Blood gas not performed. BUN 6, creatinine is 0.4. Chest CTA reveals increasing right pleural effusion. There is bilateral flank subcutaneous edema noted and, therefore, there is increasing right-sided pleural effusion as compared to previous exam. Rib series reveals rib fractures on the right, displaced right 4th and 5th ribs. The left ribs are intact. IMPRESSION: 1. Multiple rib fractures, status post mechanical fall. 2. Right pleural effusion, possibly reactive, possible hemothorax in view of recent trauma. R/O malignant. 3. Long-standing history of tobacco use 4. Advanced chronic obstructive pulmonary disease, on home oxygen. 5. Likely obstructive sleep apnea syndrome. 6. Pulmonary hypertension. PLAN: Continue inhaled bronchodilators, supplemental O2. Diagnostic thoracentesis with ultrasound guidance. Continue analgesics, incentive spirometer. Also, schedule for sleep study as an outpatient. Will also add diuretics for lower extremity edema. SUYAPA SOSA M.D. [id number] MTDD
[2016-05-17] MEDS ORDERED: FUROSEMIDE 20 MG TABLET (FP) PO ONE (16:47)
[2016-05-17] MEDS ORDERED: ACETAMINOPHEN 325 MG TABLET (FP) PO ONE (18:45)
[2016-05-17] MEDS ORDERED: oxyCODONE HCL 5 MG TABLET PO ONE (18:46)
--- NOTE | 2016-05-17 21:23 | PN ---
Progress Note, Physician Chief Complaint: Right rib pain persists History of Present Illness: Patient was seen and examined. Awake and alert. Chart was reviewed Complains of right side chest pain and intermittent dyspnea. Denies palpitations Echocardiography reveals normal left ventricular systolic function, mild left atrial dilatation and mild to moderate pulmonary HTN with increased PA pressure - Current Medication List Current Medications: Active Medications Aclidinium [place] (Tudorza -) 1 puff IH BID [facility] Last Admin: 05/17/16 09:37 Dose: 1 puff Albuterol Sulfate (Ventolin Hfa Inhaler -) 2 puff IH Q4H PRN PRN Reason: SHORT OF BREATH/WHEEZING Albuterol Sulfate (Ventolin Hfa Inhaler -) 1 puff IH Q4H PRN PRN Reason: SHORT OF BREATH/WHEEZING Heparin Sodium (Porcine) (Heparin -) 5,000 unit SQ TID [facility] Last Admin: 05/17/16 13:51 Dose: Not Given Hydrochlorothiazide (Hctz -) 25 mg PO DAILY [facility] Last Admin: 05/17/16 09:35 Dose: 25 mg Ibuprofen (Motrin -) 400 mg PO Q8H PRN PRN Reason: PAIN Last Admin: 05/17/16 09:35 Dose: 400 mg Prednisone (Deltasone -) 10 mg PO DAILY [facility] Last Admin: 05/17/16 09:35 Dose: 10 mg Fluticasone/Salmeterol (Advair 100mcg/50mcg -) 1 puff IH BID [facility] Last Admin: 05/17/16 09:37 Dose: 1 puff - Objective Vital Signs: Vital Signs Temperature 98.2 F 05/17/16 17:00 Pulse Rate 96 H 05/17/16 17:00 Respiratory Rate 20 05/17/16 17:00 Blood Pressure 136/90 05/17/16 17:00 O2 Sat by Pulse Oximetry (%) 93 L 05/17/16 07:40 Neck: Yes: Supple Cardiovascular: Yes: Regular Rate and Rhythm, S1, S2 Respiratory: Yes: Diminished Gastrointestinal: Yes: Normal Bowel Sounds, Soft, Abdomen, Obese. No: Tenderness Edema: Yes Edema: LLE: 1+, RLE: 1+ Additional Findings/Remarks: - Review of Systems Constitutional: denies: Chills, Fever Cardiovascular: reports: Chest Pain. denies: Palpitations, (+) Shortness of Breath Respiratory: denies: Cough, Hemoptysis, Orthopnea, PND, (+) SOB, SOB on Exertion Gastrointestinal: denies: Abdominal Pain, Constipation, Diarrhea, Melena, Nausea , Rectal Bleeding, Vomiting Musculoskeletal: denies: Joint Pain Neurological: denies: Dizziness, Headache, Numbness, Seizure, Syncope, Tremors Labs: CBC, BMP 05/16/16 05:35 05/17/16 05:32 INR, PTT INR 1.00 (0.82-1.09) 05/16/16 05:35 - ....Imaging Chest X-ray: Report Reviewed (pleural effusion) Problem List - Problems (1) Chest pain Code(s): R07.9 - CHEST PAIN, UNSPECIFIED Qualifiers: Chest pain type: unspecified Qualified Code(s): R07.9 - Chest pain, unspecified (2) Pleural effusion Code(s): J90 - PLEURAL EFFUSION, NOT ELSEWHERE CLASSIFIED (3) Right rib fracture Code(s): S22.31XA - FRACTURE OF ONE RIB, RIGHT SIDE, INIT FOR CLOS FX Qualifiers: Encounter type: initial encounter Rib fracture type: single rib Fracture type: closed Qualified Code(s): S22.31XA - Fracture of one rib, right side, initial encounter for closed fracture (4) HTN (hypertension) Code(s): I10 - ESSENTIAL (PRIMARY) HYPERTENSION Qualifiers: Hypertension type: essential hypertension Qualified Code(s): I10 - Essential (primary) hypertension (5) Pulmonary HTN Code(s): I27.2 - OTHER SECONDARY PULMONARY HYPERTENSION (6) Sleep apnea, obstructive Code(s): G47.33 - OBSTRUCTIVE SLEEP APNEA (ADULT) (PEDIATRIC) Assessment/Plan 1. Right side chest pain due to right rib fracture secondary to mechanical fall , no LOC 2. Hypertension 3. COPD and obstructive sleep apnea 4. Pedal edema and pleural effusion etiology to be determined - underlying mild to moderate pulmonary HTN, echocardiography suboptimal and limited, possible diastolic dysfunction could not be fully excluded PLAN: 1. Transthoracic echocardiography was reviewed 2. Diuretics as needed - IV Lasix as needed 3. Bronchodilators, nebulizer and steroids 4. Consider starting Cardizem 5. Thoracentesis may be considered for diagnostic purpose and if there is any fluid that is able to be tapped Further plans are to follow Thom Marin MD
[2016-05-18] MEDS ORDERED: oxyCODONE HCL 5 MG TABLET PO ONE (01:37)
[2016-05-18 09:35] LABS: CALCIUM 8.8 mg/dL (8.5-10.1); CREATININE 0.6 mg/dL (0.55-1.02); MAGNESIUM 1.6 mg/dL (1.8-2.4); PHOSPHOROUS 4.1 mg/dL (2.5-4.9)
[2016-05-18] MEDS: predniSONE 10 MG TABLET (UD) PO SCH (09:46)
[2016-05-18] MEDS: FLUTICASONE/SALMETEROL 100 MCG/50 MCG DISKUS IH SCH ×2 (09:47→23:05)
[2016-05-18] MEDS: ACLIDINIUM BROMIDE 400 MCG/INH AERO.POWD IH SCH ×2 (09:47→23:05)
[2016-05-18] MEDS: HYDROCHLOROTHIAZIDE 25 MG TABLET (FP) PO SCH (09:47)
--- NOTE | 2016-05-18 11:28 | PN ---
Progress Note (short form) - Note Progress Note: Chief Complaint: Events noted, notes reviewed, continues to report right sided chest discomfort History of Present Illness: Seen and examined on telemetry. Events noted, notes reviewed, continues to report right sided chest discomfort Echocardiography reveals normal left ventricular systolic function, mild left atrial dilatation and mild to moderate pulmonary HTN - Current Medication List Current Medications Aclidinium [place] (Tudorza -) 1 puff IH BID [facility] Last Admin: 05/18/16 09:47 Dose: 1 puff Albuterol Sulfate (Ventolin Hfa Inhaler -) 2 puff IH Q4H PRN PRN Reason: SHORT OF BREATH/WHEEZING Albuterol Sulfate (Ventolin Hfa Inhaler -) 1 puff IH Q4H PRN PRN Reason: SHORT OF BREATH/WHEEZING Diltiazem HCl (Cardizem Cd -) 120 mg PO DAILY [facility] Last Admin: 05/18/16 09:47 Dose: 120 mg Heparin Sodium (Porcine) (Heparin -) 5,000 unit SQ TID [facility] Last Admin: 05/17/16 21:50 Dose: 5,000 unit Hydrochlorothiazide (Hctz -) 25 mg PO DAILY [facility] Last Admin: 05/18/16 09:47 Dose: 25 mg Ibuprofen (Motrin -) 400 mg PO Q8H PRN PRN Reason: PAIN Last Admin: 05/17/16 09:35 Dose: 400 mg Oxycodone HCl (Roxicodone -) 5 mg PO Q4H PRN PRN Reason: PAIN Prednisone (Deltasone -) 10 mg PO DAILY [facility] Last Admin: 05/18/16 09:46 Dose: 10 mg Fluticasone/Salmeterol (Advair 100mcg/50mcg -) 1 puff IH BID [facility] Last Admin: 05/18/16 09:47 Dose: 1 puff - Objective Vital Signs: Last Vital Signs Temp Pulse Resp BP Pulse Ox 97.6 F 95 H 20 132/69 93 L 05/18/16 06:00 05/18/16 06:00 05/18/16 06:00 05/18/16 06:00 05/17/16 21:00 Neck: Supple Cardiovascular: S1 S2 Regular Rate and Rhythm Respiratory: Diminished Breath Sounds at the Bases Gastrointestinal: Soft Benign Normal Bowel Sounds Ext: : Bilateral Edema Labs: CBC, BMP 05/16/16 05:35 05/18/16 08:45 Assessment/Plan ASSESSMENT: 1. Persistent chest discomfort referable to right rib fractures secondary to mechanical fall 2. Probable diastolic LV dysfunction 3. Hypertension 4. Pulmonary HTN 5. COPD and obstructive sleep apnea 6. Peripheral edema probably multi-factorial related to the above noted pathologies PLAN: 1. Recommend addition of ACEI or ARBS 2. Discontinue Cardizem CD therapy and if needed consider Bystolic as an alternative 3. Diuretics, Lasix +/- Aldactone and D/C HCTZ 4. To proceed with thoracentesis for further evaluation of pleural effusion Heather Juarez MD
--- NOTE | 2016-05-18 13:28 | PN ---
Progress Note (short form) - Note Progress Note: PULMONARY s/p left thoracentesis today. pleural fluid analysis pending. Last Vital Signs Temp Pulse Resp BP Pulse Ox 97.6 F 95 H 20 132/69 93 L 05/18/16 06:00 05/18/16 06:00 05/18/16 06:00 05/18/16 06:00 05/17/16 21:00 Gen: NAD at rest Heart: RRR Lung: decreased breath sounds at the bases Abd: soft, nontender Ext: + edema CBC, BMP 05/16/16 05:35 05/18/16 08:45 Active Medications Aclidinium [place] (Tudorza -) 1 puff IH BID [facility] Last Admin: 05/18/16 09:47 Dose: 1 puff Albuterol Sulfate (Ventolin Hfa Inhaler -) 2 puff IH Q4H PRN PRN Reason: SHORT OF BREATH/WHEEZING Albuterol Sulfate (Ventolin Hfa Inhaler -) 1 puff IH Q4H PRN PRN Reason: SHORT OF BREATH/WHEEZING Furosemide (Lasix -) 20 mg PO DAILY [facility] Heparin Sodium (Porcine) (Heparin -) 5,000 unit SQ TID [facility] Last Admin: 05/17/16 21:50 Dose: 5,000 unit Ibuprofen (Motrin -) 400 mg PO Q8H PRN PRN Reason: PAIN Last Admin: 05/17/16 09:35 Dose: 400 mg Oxycodone HCl (Roxicodone -) 5 mg PO Q4H PRN PRN Reason: PAIN Prednisone (Deltasone -) 10 mg PO DAILY [facility] Last Admin: 05/18/16 09:46 Dose: 10 mg Fluticasone/Salmeterol (Advair 100mcg/50mcg -) 1 puff IH BID [facility] Last Admin: 05/18/16 09:47 Dose: 1 puff Spironolactone (Aldactone -) 25 mg PO DAILY [facility] Valsartan (Diovan -) 80 mg PO DAILY [facility] A/P Pleural Effusion Rib Fractures Atelectasis Pulmonary HTN Likely AREN Morbid Obesity - f/u pleural fluid chemistries, cultures and cytology - incentive spirometry - O2 as needed - PFTs, PSG as outpt - DVT prophylaxis
[2016-05-18] MEDS: FUROSEMIDE 20 MG TABLET (FP) PO SCH (13:34)
[2016-05-18] MEDS: SPIRONOLACTONE 25 MG TABLET (FP) PO SCH (13:34)
[2016-05-18] MEDS: oxyCODONE HCL 5 MG TABLET PO PRN ×3 (13:34→23:08)
[2016-05-18 14:04] LABS: GLUCOSE,PLEURAL FLUID 143.277; TOTAL PROTEIN,PLEURAL FLUID 3.555
--- NOTE | 2016-05-18 14:44 | PN ---
Physical Exam: SUBJECTIVE: Patient seen and examined Patient resting in bed nad. no acute events. afebrile and hemodynamically stable. states she has a lot of rib pain. Painful to breathe deeply, difficuly using incentive spirometer but able to inhale up to 1200. denies chest pain, h/a , palpitations, diaphoresis, LOC, abd pain, n/v, dysuria. Lost 10 lb since admission, LE edema improving OBJECTIVE: Vital Signs Period Temp Pulse Resp BP Sys/Pride Pulse Ox Last 24 Hr 97.3 F-98.2 F 93-96 20-20 132-165/69-90 93 GENERAL: The patient is awake, alert, and fully oriented, in no acute distress. HEAD: Normal with no signs of trauma. EYES: PERRL, extraocular movements intact, sclera anicteric, conjunctiva clear. No ptosis. ENT: moist mucous membranes. NECK: Trachea midline, full range of motion, supple. LUNGS: bibasilar ronchi R>L. tenderness over R ribcage HEART: Regular rate and rhythm, S1, S2 ABDOMEN: Soft, nontender, nondistended, normoactive bowel sounds, no guarding, no rebound, no hepatosplenomegaly, no masses. EXTREMITIES: 2+ pulses, warm, well-perfused, LE 2+ pitting edema but slightly improved . NEUROLOGICAL: Cranial nerves II through XII grossly intact. Normal speech, gait not observed. PSYCH: Normal mood, normal affect. SKIN: Warm, dry Laboratory Results - last 24 hr 05/18/16 05/18/16 08:45 11:10 Sodium 136 Potassium 3.8 Chloride 91 L Carbon Dioxide 35 H Anion Gap 10 BUN 5 L Creatinine 0.6 D Random Glucose 172 H D Calcium 8.8 Phosphorus 4.1 Magnesium 1.6 L Pleural Chloride TNP Pleural Total Protein 3.555 Pleural Albumin 2 Pleural LDH 115.6 Pleural Glucose 143.277 Pleural Amylase 29.965 Pleural Cholesterol 81 Pleural Triglycerides 30 Active Medications Generic Name Dose Route Start Last Admin Trade Name Freq PRN Reason Stop Dose Admin Aclidinium [place] 1 puff 05/15/16 22:00 05/18/16 09:47 Tudorza - IH 1 puff BID GILBERTO Administration Albuterol Sulfate 2 puff 05/15/16 20:35 Ventolin Hfa Inhaler - IH Q4H PRN SHORT OF BREATH/WHEEZING Albuterol Sulfate 1 puff 05/15/16 20:40 Ventolin Hfa Inhaler - IH Q4H PRN SHORT OF BREATH/WHEEZING Furosemide 20 mg 05/18/16 11:30 05/18/16 13:34 Lasix - PO 20 mg DAILY GILBERTO Administration Heparin Sodium (Porcine) 5,000 unit 05/15/16 22:00 05/17/16 21:50 Heparin - SQ 5,000 unit TID GILBERTO Administration Ibuprofen 400 mg 05/16/16 12:06 05/17/16 09:35 Motrin - PO 400 mg Q8H PRN Administration PAIN Oxycodone HCl 5 mg 05/18/16 11:04 05/18/16 13:34 Roxicodone - PO 5 mg Q4H PRN Administration PAIN Prednisone 10 mg 05/15/16 20:45 05/18/16 09:46 Deltasone - PO 10 mg DAILY GILBERTO Administration Fluticasone/Salmeterol 1 puff 05/16/16 22:00 05/18/16 09:47 Advair 100mcg/50mcg - IH 1 puff BID GILBERTO Administration Spironolactone 25 mg 05/18/16 11:30 05/18/16 13:34 Aldactone - PO 25 mg DAILY GILBERTO Administration Valsartan 80 mg 05/19/16 10:00 Diovan - PO DAILY GILBERTO ASSESSMENT/PLAN: This is a 60 yo f with PMH of HTN, Sleep apnea, COPD on home oxygen (2L at night ), recent COPD exacerbation, recent rib fracture due to mechanical fall and chronic back pain, who presented due to right sided chest pain and B/L leg swelling. Right sided chest pain-s/p mechanical fall -EKG Sinus tachycardia, right bundle branch block -CTA negative for PE, R pleural effusion, mediastinal lymphadenopathy same as last study -CXR R pleural effusion -Ribs XR R 4th and 5th rib fracture -Troponin x 2 negative -due to rib fracture -motrin for pain -PT -incentive spirometry R pleural effusion -due to disatolic failure vs rib fracture vs tumor -plan pleurocenthesis today 10 am -cxr post procedure r/o pneumo -pulm consult appreciated -cardio consult appreciated -TTE unremarkable -ESR wnl, manohar p/d -f/u pleural fluid studies -oxicodone for pain B/L LE edema -due to positioning with legs hanging down vs heart failure, vs norvasc side effect -LE duplex no DVT -norvasac held -improved -started on lasix 20 d PO, aldactone 25 d htn -Norvasc stopped -diovan 80 d starting tomorrow COPD -Stable -2L nc -Continue Tudorza, Albuterol, Symbicort, Prednisone 10mg Daily. Sleep Apnea -Not on CPAP -outpatient pulm follow up, sleep study Gait instability -Patient had a mechanical fall 2 times within 2 months period. -PT evaluation for gait instability -may need vns FEN no ivf mild hypochloremia Sodium controlled diet Heparin 5000 Dispo: [facility] Problem List - Problems (1) Chest pain Code(s): R07.9 - CHEST PAIN, UNSPECIFIED Qualifiers: Chest pain type: unspecified Qualified Code(s): R07.9 - Chest pain, unspecified (2) Chronic hypoxemic respiratory failure Code(s): J96.11 - CHRONIC RESPIRATORY FAILURE WITH HYPOXIA (3) Morbid obesity due to excess calories Code(s): E66.01 - MORBID (SEVERE) OBESITY DUE TO EXCESS CALORIES (4) Pleural effusion Code(s): J90 - PLEURAL EFFUSION, NOT ELSEWHERE CLASSIFIED (5) Right rib fracture Code(s): S22.31XA - FRACTURE OF ONE RIB, RIGHT SIDE, INIT FOR CLOS FX Qualifiers: Encounter type: initial encounter Rib fracture type: single rib Fracture type: closed Qualified Code(s): S22.31XA - Fracture of one rib, right side, initial encounter for closed fracture (6) Abdominal obesity Code(s): E65 - LOCALIZED ADIPOSITY (7) HTN (hypertension) Code(s): I10 - ESSENTIAL (PRIMARY) HYPERTENSION Qualifiers: Hypertension type: essential hypertension Qualified Code(s): I10 - Essential (primary) hypertension (8) Sleep apnea, obstructive Code(s): G47.33 - OBSTRUCTIVE SLEEP APNEA (ADULT) (PEDIATRIC) Visit type - Emergency Visit Emergency Visit: Yes ED Registration Date: 05/15/16 Care time: The patient presented to the Emergency Department on the above date and was hospitalized for further evaluation of their emergent condition. - New Patient This patient is new to me today: No - Critical Care Critical Care patient: No - Discharge Referral Referred to [facility] No
[2016-05-18 14:50] LABS: PLEURAL FLUID APPEARANCE CLEAR; PLEURAL FLUID COLOR YELLOW; PLEURAL FLUID SOURCE RIGHT PLEUL
--- NOTE | 2016-05-18 16:19 | PN ---
Teaching Attending Note Name of Resident: Della Noguera ATTENDING PHYSICIAN STATEMENT I saw and evaluated the patient. I reviewed the resident's note and discussed the case with the resident. I agree with the resident's findings and plan as documented. SUBJECTIVE: No fever or chills. R sided CP persists. SOB due to not being able to take deep breath OBJECTIVE: seen at 12 pm NAD , full webbed neck Cv : RRR,no MRG lungs : decreased breath sounds at R base with minimal crackles Ext : improved 1+ pitting edema on b/l LE with some erythema especially on Left ASSESSMENT AND PLAN: 60 y/o lady with h/o HTN, AREN, COPD , recent admission for COPD exa in , recent R rib Fx 2/2 fall 2 weeks ago, who presented with worsening R chest pain and LE edema 1- LE edema: due to possible D heart failure , and pulm HTN cont to have good response to diuresis ( net neg 3 L yesterday ) - case d/w . - start diovan and aldactone - cont lasix 2- R pleural effusion : still not clear of etiology. No signs of infection. ? inflammatory due to rib fx . - Nl ESR , MICHELLE still pending -pleurocetesis today , marysol removal of yellow fluid -follwo cytology, cx , protein and other labs on fluid analysis - repeat cxray this evening 3- H/o COPD : no signs of exacerbation cont inhalers and nebs cont O2 ( requires 3 L at home ) cont prednisone at home dose 4- HTN : - cont HCTZ 5- R rib Fx ; due to mechanical fall - ibuprofen as needed - oxycodone as needed HLOC
[2016-05-18 22:12] LABS: PLEURAL FLUID LYMPHOCYTES 31 %; PLEURAL FLUID MACROPHAGES 52 %; PLEURAL FLUID NEUTROPHIL 0 %
[2016-05-18] MEDS: HEPARIN NA (PORCINE) 5,000 UNITS/ML 1ML VIAL SQ SCH (23:05)
[2016-05-19] MEDS: oxyCODONE HCL 5 MG TABLET PO PRN ×4 (03:34→22:22)
[2016-05-19] MEDS: HEPARIN NA (PORCINE) 5,000 UNITS/ML 1ML VIAL SQ SCH ×3 (06:26→22:23)
--- NOTE | 2016-05-19 09:04 | PN ---
Teaching Attending Note Name of Resident: Della Noguera ATTENDING PHYSICIAN STATEMENT I saw and evaluated the patient. I reviewed the resident's note and discussed the case with the resident. I agree with the resident's findings and plan as documented. Patient is feeling better, was found to be flushed. Positive for Shortness of breath. Vital Signs Temperature 97.8 F 05/19/16 06:00 Pulse Rate 96 H 05/19/16 06:00 Respiratory Rate 22 05/19/16 06:00 Blood Pressure 116/77 05/19/16 06:00 O2 Sat by Pulse Oximetry (%) 91 L 05/18/16 21:00 CBCD WBC 7.1 K/mm3 (4.0-10.0) D 05/16/16 05:35 RBC 3.75 M/mm3 (3.60-5.2) 05/16/16 05:35 Hgb 13.6 GM/dL (10.7-15.3) 05/16/16 05:35 Hct 40.5 % (32.4-45.2) 05/16/16 05:35 MCV 108.1 fl (80-96) H 05/16/16 05:35 MCHC 33.7 g/dl (32.0-36.0) 05/16/16 05:35 RDW 15.4 % (11.6-15.6) 05/16/16 05:35 Plt Count 253 K/MM3 (134-434) 05/16/16 05:35 MPV 7.1 fl (7.5-11.1) L 05/16/16 05:35 CMP Sodium 136 mmol/L (136-145) 05/18/16 08:45 Potassium 3.8 mmol/L (3.5-5.1) 05/18/16 08:45 Chloride 91 mmol/L (98-107) L 05/18/16 08:45 Carbon Dioxide 35 mmol/L (21-32) H 05/18/16 08:45 Anion Gap 10 (8-16) 05/18/16 08:45 BUN 5 mg/dL (7-18) L 05/18/16 08:45 Creatinine 0.6 mg/dL (0.55-1.02) D 05/18/16 08:45 Creat Clearance w eGFR > 60 (>60) 05/16/16 05:35 Random Glucose 172 mg/dL (74-106) H D 05/18/16 08:45 Calcium 8.8 mg/dL (8.5-10.1) 05/18/16 08:45 Total Bilirubin 0.5 mg/dL (0.2-1.0) D 05/16/16 05:35 AST 21 U/L (15-37) 05/16/16 05:35 ALT 23 U/L (12-78) 05/16/16 05:35 Alkaline Phosphatase 93 U/L (45-117) 05/16/16 05:35 Total Protein 6.5 g/dl (6.4-8.2) 05/16/16 05:35 Albumin 3.2 g/dl (3.4-5.0) L 05/16/16 05:35 CARDIAC ENZYMES Creatine Kinase 33 IU/L (26-192) 05/15/16 16:12 Troponin I < 0.02 ng/ml (0.00-0.05) 05/16/16 00:30 ASSESSMENT AND PLAN: 60 y/o lady with h/o HTN, AREN, COPD , recent admission for COPD exa in , recent R rib Fx 2/2 fall 2 weeks ago, who presented with worsening R chest pain and LE edema # Facial redness with fullness with congestive apperance ordered carotid duplex to r/o stenosis , checked with radiologist the result of chest CTA showed no SVC obstruction. #Right pleural effusion :Unknown etiology. No signs of infection. s/p thoracocentesis ; Nl ESR , MICHELLE still pending # Right Rib Fractures due to mechanical fall continue pain meds. # Pulmonary HTN on diovan and aldactone and on lasix continue # Morbid Obesity ; AREN continue incentive spirometry; on O2 as needed ; PFTs as outpt # LE edema: due to possible D heart failure , and pulm HTN continue diuretic for now # H/o COPD : cont inhalers and nebs ; cont home O2 ( requires 3 L at home ) # HTN : continue home meds. DVT px:
[2016-05-19] MEDS: SPIRONOLACTONE 25 MG TABLET (FP) PO SCH (09:59)
[2016-05-19] MEDS: FUROSEMIDE 20 MG TABLET (FP) PO SCH (09:59)
[2016-05-19] MEDS: predniSONE 10 MG TABLET (UD) PO SCH (09:59)
[2016-05-19] MEDS: VALSARTAN 80 MG TABLET (UD) PO SCH (09:59)
[2016-05-19] MEDS: FLUTICASONE/SALMETEROL 100 MCG/50 MCG DISKUS IH SCH ×2 (10:01→22:23)
[2016-05-19] MEDS: ACLIDINIUM BROMIDE 400 MCG/INH AERO.POWD IH SCH ×2 (10:02→22:23)
--- NOTE | 2016-05-19 10:26 | PN ---
Progress Note (short form) - Note Progress Note: S: 60 year old female, with history of chronic obstructive pulmonary disease, right sided chest discomfort partly related to rib fracture, which was related to a fall approximately 2 weeks ago. History of progressive shortness of breath. History of obstructive sleep apnea, right pleural effusion which appears to be an exudate. Previous history of pneumonia, hypertension, peripheral edema. Patient continues to have sharp chest pain and dyspnea, more pronounced on lying down. No cough or expectoration reported. Active Medications Generic Name Dose Route Start Last Admin Trade Name Freq PRN Reason Stop Dose Admin Aclidinium [place] 1 puff 05/15/16 22:00 05/19/16 10:02 Tudorza - IH 1 puff BID GILBERTO Administration Albuterol Sulfate 2 puff 05/15/16 20:35 Ventolin Hfa Inhaler - IH Q4H PRN SHORT OF BREATH/WHEEZING Albuterol Sulfate 1 puff 05/15/16 20:40 Ventolin Hfa Inhaler - IH Q4H PRN SHORT OF BREATH/WHEEZING Furosemide 20 mg 05/18/16 11:30 05/19/16 09:59 Lasix - PO 20 mg DAILY GILBERTO Administration Heparin Sodium (Porcine) 5,000 unit 05/15/16 22:00 05/19/16 06:26 Heparin - SQ 5,000 unit TID GILBERTO Administration Ibuprofen 400 mg 05/16/16 12:06 05/17/16 09:35 Motrin - PO 400 mg Q8H PRN Administration PAIN Oxycodone HCl 5 mg 05/18/16 11:04 05/19/16 03:34 Roxicodone - PO 5 mg Q4H PRN Administration PAIN Prednisone 10 mg 05/15/16 20:45 05/19/16 09:59 Deltasone - PO 10 mg DAILY GILBERTO Administration Fluticasone/Salmeterol 1 puff 05/16/16 22:00 05/19/16 10:01 Advair 100mcg/50mcg - IH 1 puff BID GILBERTO Administration Spironolactone 25 mg 05/18/16 11:30 05/19/16 09:59 Aldactone - PO 25 mg DAILY GILBERTO Administration Valsartan 80 mg 05/19/16 10:00 05/19/16 09:59 Diovan - PO 80 mg DAILY GILBERTO Administration O: 60 year old female was in no acute distress, no pallor, cyanosis, clubbing, or jaundice. Patient has Tom complexion and a blueish hue involving the lips. Last Vital Signs Temp Pulse Resp BP Pulse Ox 97.8 F 96 H 22 116/77 91 L 05/19/16 06:00 05/19/16 06:00 05/19/16 06:00 05/19/16 06:00 05/18/16 21:00 Neck: Short and Supple, no JVD, negative HJR, carotids were equal and upstrokes were normal, no thyromegaly appreciated. Heart: PMI was in the 5th intercostal space, no heaves or thrills, heart sounds were distant, unable to appreciate murmur, gallops or rubs. Lungs: Decrease breath sounds at the right base. Air entry on the left lung appears decreased. Abdomen: Examined seating because of right sided chest discomfort. Is soft and markedly obese, unable to appreciate hepatosplenomegaly. Extremities: No calf tenderness, 2+ bilateral pitting edema. DP could not be palpated. CBC, BMP 05/16/16 05:35 05/18/16 08:45 Laboratory Results - last 24 hr 05/16/16 05/18/16 05/18/16 05:35 09:00 11:10 LD Total 208 Pleural Fluid Source Right pleul Pleural Color Yellow Pleural Appearance Clear Pleural WBC 1,365 Pleural RBC 2,921 Pleural Neutrophils 0 Pleural Lymphocytes 31 Pleural Macrophages 52 Pleural Mesothelial 17 Pleural Chloride TNP Pleural Total Protein 3.555 Pleural Albumin 2 Pleural LDH 115.6 Pleural Glucose 143.277 Pleural Amylase 29.965 Pleural Cholesterol 81 Pleural Triglycerides 30 MICHELLE Screen Negative Impression: (1) Chest pain, etiology partly related to recent right rib fracture Code(s): R07.9 - CHEST PAIN, UNSPECIFIED Qualifiers: Chest pain type: unspecified Qualified Code(s): R07.9 - Chest pain, unspecified Code(s): S22.31XA - FRACTURE OF ONE RIB, RIGHT SIDE, INIT FOR CLOS FX Qualifiers: Encounter type: initial encounter Rib fracture type: single rib Fracture type: closed Qualified Code(s): S22.31XA - Fracture of one rib, right side, initial encounter for closed fracture (2) Pleural effusion, etiology to be determined, appears to be an exudate Code(s): J90 - PLEURAL EFFUSION, NOT ELSEWHERE CLASSIFIED (3) HTN (hypertension) Code(s): I10 - ESSENTIAL (PRIMARY) HYPERTENSION Qualifiers: Hypertension type: essential hypertension Qualified Code(s): I10 - Essential (primary) hypertension (4) Pulmonary HTN Code(s): I27.2 - OTHER SECONDARY PULMONARY HYPERTENSION (5) Sleep apnea, obstructive Code(s): G47.33 - OBSTRUCTIVE SLEEP APNEA (ADULT) (PEDIATRIC) (6) COPD Code(s): J44.9 - CHRONIC OBSTRUCTIVE PULMONARY DISEASE, UNSPECIFIED (7) Dyspnea, etiology; a. Secondary to #6. b. Partly related to pleural effusion Code(s): R06.00 - DYSPNEA, UNSPECIFIED (8) Pedal edema, etiology; a. Most probably is multi-factoral, appears mostly related to venous insufficiency Code(s): R60.0 - LOCALIZED EDEMA Recommendations: 1. Continue current cardiac therapy. 2. Risk modifications. 3. Daily weights. 4. Check oxymetry during exertion. Attestation: Documentation prepared by Yovany Cumminsg, acting as medical referral coordinator for Ata Figueroa MD.
--- NOTE | 2016-05-19 11:53 | PN ---
Progress Note, Physician History of Present Illness: PULMONARY ALERT,FEELING BETTER,COMFORTABLE,LESS DYSPNEIC. PLEURAL FLUID C/W EXUDATE ELEVATED PROTEIN 3.6,CHOLESTEROL >50,ALBUMIN GRADIENT 1.2 - Current Medication List Current Medications: Active Medications Aclidinium [place] (Tudorza -) 1 puff IH BID [facility] Last Admin: 05/19/16 10:02 Dose: 1 puff Albuterol Sulfate (Ventolin Hfa Inhaler -) 2 puff IH Q4H PRN PRN Reason: SHORT OF BREATH/WHEEZING Albuterol Sulfate (Ventolin Hfa Inhaler -) 1 puff IH Q4H PRN PRN Reason: SHORT OF BREATH/WHEEZING Furosemide (Lasix -) 20 mg PO DAILY [facility] Last Admin: 05/19/16 09:59 Dose: 20 mg Heparin Sodium (Porcine) (Heparin -) 5,000 unit SQ TID [facility] Last Admin: 05/19/16 06:26 Dose: 5,000 unit Ibuprofen (Motrin -) 400 mg PO Q8H PRN PRN Reason: PAIN Last Admin: 05/17/16 09:35 Dose: 400 mg Oxycodone HCl (Roxicodone -) 5 mg PO Q4H PRN PRN Reason: PAIN Last Admin: 05/19/16 10:32 Dose: 5 mg Prednisone (Deltasone -) 10 mg PO DAILY [facility] Last Admin: 05/19/16 09:59 Dose: 10 mg Fluticasone/Salmeterol (Advair 100mcg/50mcg -) 1 puff IH BID [facility] Last Admin: 05/19/16 10:01 Dose: 1 puff Spironolactone (Aldactone -) 25 mg PO DAILY [facility] Last Admin: 05/19/16 09:59 Dose: 25 mg Valsartan (Diovan -) 80 mg PO DAILY [facility] Last Admin: 05/19/16 09:59 Dose: 80 mg - Objective Vital Signs: Vital Signs Temperature 98.4 F 05/19/16 10:00 Pulse Rate 99 H 05/19/16 10:00 Respiratory Rate 22 05/19/16 10:00 Blood Pressure 122/77 05/19/16 10:00 O2 Sat by Pulse Oximetry (%) 92 L 05/19/16 09:00 Constitutional: Yes: Calm, Obese Eyes: Yes: WNL HENT: Yes: WNL Neck: Yes: WNL Cardiovascular: Yes: Regular Rate and Rhythm, S1, S2 Respiratory: Yes: Diminished Gastrointestinal: Yes: Normal Bowel Sounds, Soft, Other Extremities: Yes: WNL Edema: Yes Labs: CBC, BMP 05/16/16 05:35 05/18/16 08:45 INR, PTT INR 1.00 (0.82-1.09) 05/16/16 05:35 Laboratory Tests 05/18/16 11:10 Pleural Color Yellow Pleural Appearance Clear Pleural WBC 1,365 Pleural RBC 2,921 Pleural Lymphocytes 31 Pleural Macrophages 52 Pleural Mesothelial 17 Pleural Total Protein 3.555 Pleural Albumin 2 Pleural LDH 115.6 Pleural Glucose 143.277 Pleural Amylase 29.965 Pleural Cholesterol 81 Pleural Triglycerides 30 Problem List - Problems (1) Chest pain Code(s): R07.9 - CHEST PAIN, UNSPECIFIED Qualifiers: Chest pain type: unspecified Qualified Code(s): R07.9 - Chest pain, unspecified (2) Right rib fracture Code(s): S22.31XA - FRACTURE OF ONE RIB, RIGHT SIDE, INIT FOR CLOS FX Qualifiers: Encounter type: initial encounter Rib fracture type: single rib Fracture type: closed Qualified Code(s): S22.31XA - Fracture of one rib, right side, initial encounter for closed fracture (3) Abdominal obesity Code(s): E65 - LOCALIZED ADIPOSITY (4) HTN (hypertension) Code(s): I10 - ESSENTIAL (PRIMARY) HYPERTENSION Qualifiers: Hypertension type: essential hypertension Qualified Code(s): I10 - Essential (primary) hypertension (5) Pulmonary HTN Code(s): I27.2 - OTHER SECONDARY PULMONARY HYPERTENSION (6) Sleep apnea, obstructive Code(s): G47.33 - OBSTRUCTIVE SLEEP APNEA (ADULT) (PEDIATRIC) (7) Volume overload Code(s): E87.70 - FLUID OVERLOAD, UNSPECIFIED (8) Chronic hypoxemic respiratory failure Code(s): J96.11 - CHRONIC RESPIRATORY FAILURE WITH HYPOXIA (9) Pleural effusion Code(s): J90 - PLEURAL EFFUSION, NOT ELSEWHERE CLASSIFIED (10) Morbid obesity due to excess calories Code(s): E66.01 - MORBID (SEVERE) OBESITY DUE TO EXCESS CALORIES Assessment/Plan IMP R PLERUAL EFFUSION EXUDATE ? ETIOLOGY MULTIPLE RIB FXS ADVANCED COPD ON O2 CHRONIC HYPOXEMIC RESPIRATORY FAILURE PULMONARY HYPERTENSION LIKELY OSAS MORBID OBESITY PLAN CHECK CYTOLOGY PLEURAL FLUID,CULTURES ANALGESICS INHALED BRONCODILATORS NASAL O2 DIURETICS SLEEP STUDIES OUTPATIENT PFTS OUTPATIENT DR SOSA Problem List - Problems (1) Chest pain Code(s): R07.9 - CHEST PAIN, UNSPECIFIED Qualifiers: Chest pain type: unspecified Qualified Code(s): R07.9 - Chest pain, unspecified (2) Right rib fracture Code(s): S22.31XA - FRACTURE OF ONE RIB, RIGHT SIDE, INIT FOR CLOS FX Qualifiers: Encounter type: initial encounter Rib fracture type: single rib Fracture type: closed Qualified Code(s): S22.31XA - Fracture of one rib, right side, initial encounter for closed fracture (3) Abdominal obesity Code(s): E65 - LOCALIZED ADIPOSITY (4) HTN (hypertension) Code(s): I10 - ESSENTIAL (PRIMARY) HYPERTENSION (5) Pulmonary HTN Code(s): I27.2 - OTHER SECONDARY PULMONARY HYPERTENSION (6) Sleep apnea, obstructive Code(s): G47.33 - OBSTRUCTIVE SLEEP APNEA (ADULT) (PEDIATRIC) (7) Volume overload Code(s): E87.70 - FLUID OVERLOAD, UNSPECIFIED (8) Chronic hypoxemic respiratory failure Code(s): J96.11 - CHRONIC RESPIRATORY FAILURE WITH HYPOXIA (9) Pleural effusion Code(s): J90 - PLEURAL EFFUSION, NOT ELSEWHERE CLASSIFIED (10) Morbid obesity due to excess calories Code(s): E66.01 - MORBID (SEVERE) OBESITY DUE TO EXCESS CALORIES
[2016-05-19] MEDS: CHOLECALCIFEROL (VITAMIN D3) 1,000 UNIT TABLET (FP) PO SCH (12:37)
--- NOTE | 2016-05-19 16:59 | PATH ---
Cytology Non-Gynecological Report Patient Name: CORINA LAMB [facility]. Rec. #: [id number] /Age/Gender: 1955 (Age: 60) / F Account: [id number] Location: 4 W TELEMETRY U Taken: 05/18/2016 Received: 05/18/2016 Reported: 05/19/2016 Physicians: Lupe Borges M.D. Specimen(s) Received RIGHT PLEURAL FLUID Clinical History Pleural effusion Final Diagnosis PLEURAL FLUID, RIGHT, THORACENTESIS: SATISFACTORY FOR EVALUATION. NO MALIGNANT CELLS IDENTIFIED. REACTIVE MESOTHELIAL CELLS, HISTIOCYTES AND LYMPHOCYTES. Comment: Immunohistochemical stains performed and interpreted at [facility] on the cell block show the cells in the effusion are negative for BerEp4/TREMAYNE and TTF1 immunostains; CK7 highlights mesothelial cells. These results are supportive of the interpretation above. Electronically Signed Derrell Paulino M.D. Gross Description Received is 50 cc or yellow fluid in 50% alcohol. One cytofunnel slide and one cell block made.
--- NOTE | 2016-05-19 17:11 | PN ---
Physical Exam: SUBJECTIVE: Patient seen and examined Patient resting in bed nad. no acute events. afebrile and hemodynamically stable. Still has a lot of rib pain. Painful to breathe deeply, difficuly using incentive spirometer but able to inhale up to 1200. denies chest pain, h/a, palpitations, diaphoresis, LOC, abd pain, n/v, dysuria. Lost over 10 lb since admission, LE edema improving significantly, patient states she feels better while on new diuretics. OBJECTIVE: Vital Signs Period Temp Pulse Resp BP Sys/Pride Pulse Ox Last 24 Hr 97.3 F-98.4 F 78-109 16-22 116-139/59-77 91-92 GENERAL: The patient is awake, alert, and fully oriented, in no acute distress. HEAD: Normal with no signs of trauma. very edematous red face EYES: PERRL, extraocular movements intact, sclera anicteric, conjunctiva clear. No ptosis. ENT: moist mucous membranes. NECK: Trachea midline, full range of motion, supple. LUNGS: bibasilar ronchi R>L. tenderness over R ribcage HEART: Regular rate and rhythm, S1, S2 ABDOMEN: Soft, nontender, nondistended, normoactive bowel sounds, no guarding, no rebound, no hepatosplenomegaly, no masses. EXTREMITIES: 2+ pulses, warm, well-perfused, LE 2+ pitting edema improved . NEUROLOGICAL: Cranial nerves II through XII grossly intact. Normal speech, gait not observed. PSYCH: Normal mood, normal affect. SKIN: Warm, dry Laboratory Results - last 24 hr 05/16/16 05/18/16 05/18/16 05:35 09:00 11:10 LD Total 208 Pleural Neutrophils 0 Pleural Lymphocytes 31 Pleural Macrophages 52 Pleural Mesothelial 17 MANOHAR Screen Negative Active Medications Generic Name Dose Route Start Last Admin Trade Name Freq PRN Reason Stop Dose Admin Aclidinium [place] 1 puff 05/15/16 22:00 05/19/16 10:02 Tudorza - IH 1 puff BID GILBERTO Administration Albuterol Sulfate 2 puff 05/15/16 20:35 Ventolin Hfa Inhaler - IH Q4H PRN SHORT OF BREATH/WHEEZING Albuterol Sulfate 1 puff 05/15/16 20:40 Ventolin Hfa Inhaler - IH Q4H PRN SHORT OF BREATH/WHEEZING Cholecalciferol 2,000 unit 05/19/16 12:00 05/19/16 12:37 Vitamin D3 - PO 2,000 unit DAILY GILBERTO Administration Furosemide 20 mg 05/18/16 11:30 05/19/16 09:59 Lasix - PO 20 mg DAILY GILBERTO Administration Heparin Sodium (Porcine) 5,000 unit 05/15/16 22:00 05/19/16 13:15 Heparin - SQ 5,000 unit TID GILBERTO Administration Ibuprofen 400 mg 05/16/16 12:06 05/17/16 09:35 Motrin - PO 400 mg Q8H PRN Administration PAIN Oxycodone HCl 5 mg 05/18/16 11:04 05/19/16 10:32 Roxicodone - PO 5 mg Q4H PRN Administration PAIN Prednisone 10 mg 05/15/16 20:45 05/19/16 09:59 Deltasone - PO 10 mg DAILY GILBERTO Administration Fluticasone/Salmeterol 1 puff 05/16/16 22:00 05/19/16 10:01 Advair 100mcg/50mcg - IH 1 puff BID GILBERTO Administration Spironolactone 25 mg 05/18/16 11:30 05/19/16 09:59 Aldactone - PO 25 mg DAILY GILBERTO Administration Valsartan 80 mg 05/19/16 10:00 05/19/16 09:59 Diovan - PO 80 mg DAILY GILBERTO Administration ASSESSMENT/PLAN: This is a 60 yo f with PMH of HTN, Sleep apnea, COPD on home oxygen (2L at night ), recent COPD exacerbation, recent rib fracture due to mechanical fall and chronic back pain, who presented due to right sided chest pain and B/L leg swelling. Right sided chest pain-s/p mechanical fall -EKG Sinus tachycardia, right bundle branch block -CTA negative for PE, R pleural effusion, mediastinal lymphadenopathy same as last study -CXR R pleural effusion -Ribs XR R 4th and 5th rib fracture -Troponin x 2 negative -due to rib fracture -oxycodone for pain -PT -incentive spirometry -start vit D R pleural effusion -due to disatolic failure vs rib fracture vs tumor -s/p pleurocenthesis yesterday -cxr post procedure improved r base, no pneumothorax -pulm consult appreciated -cardio consult appreciated -TTE unremarkable -ESR wnl, manohar wnl -pleural fluid cytology p/d -pleural fluid Protein ratio=0.54 (borderline exudate) but LDH less than 2/3 upper limit (transudate). PH sent but sample wasted. -f/u [facility] outpatient Facial edema: -carotid duplex: l external carotid lesion >70%, vascular consult -Recent chest CTA no SVC obstruction B/L LE edema -heart failure, vs norvasc side effect -LE duplex no DVT -norvasac held -improved -started on lasix 20 d PO, aldactone 25 d htn -Norvasc stopped -diovan 80 d COPD -Stable -2L nc -Continue Tudorza, Albuterol, Symbicort, Prednisone 10mg Daily. Sleep Apnea -Not on CPAP -outpatient pulm follow up, sleep study Gait instability -Patient had a mechanical fall 2 times within 2 months period. -PT evaluation for gait instability -may need vns FEN no ivf mild hypochloremia Sodium controlled diet Heparin 5000 Dispo: [facility] Problem List - Problems (1) Chest pain Code(s): R07.9 - CHEST PAIN, UNSPECIFIED Qualifiers: Chest pain type: unspecified Qualified Code(s): R07.9 - Chest pain, unspecified (2) Chronic hypoxemic respiratory failure Code(s): J96.11 - CHRONIC RESPIRATORY FAILURE WITH HYPOXIA (3) Morbid obesity due to excess calories Code(s): E66.01 - MORBID (SEVERE) OBESITY DUE TO EXCESS CALORIES (4) Pleural effusion Code(s): J90 - PLEURAL EFFUSION, NOT ELSEWHERE CLASSIFIED (5) Right rib fracture Code(s): S22.31XA - FRACTURE OF ONE RIB, RIGHT SIDE, INIT FOR CLOS FX Qualifiers: Encounter type: initial encounter Rib fracture type: single rib Fracture type: closed Qualified Code(s): S22.31XA - Fracture of one rib, right side, initial encounter for closed fracture (6) Abdominal obesity Code(s): E65 - LOCALIZED ADIPOSITY (7) HTN (hypertension) Code(s): I10 - ESSENTIAL (PRIMARY) HYPERTENSION Qualifiers: Hypertension type: essential hypertension Qualified Code(s): I10 - Essential (primary) hypertension (8) Sleep apnea, obstructive Code(s): G47.33 - OBSTRUCTIVE SLEEP APNEA (ADULT) (PEDIATRIC) Visit type - Emergency Visit Emergency Visit: Yes ED Registration Date: 05/15/16 Care time: The patient presented to the Emergency Department on the above date and was hospitalized for further evaluation of their emergent condition. - New Patient This patient is new to me today: No - Critical Care Critical Care patient: No - Discharge Referral Referred to [facility] No
[2016-05-20] MEDS: oxyCODONE HCL 5 MG TABLET PO PRN ×2 (03:33→13:55)
[2016-05-20] MEDS: HEPARIN NA (PORCINE) 5,000 UNITS/ML 1ML VIAL SQ SCH ×2 (05:44→13:47)
[2016-05-20 07:26] LABS: MCH 36.2 pg (25.7-33.7); MCHC 33.3 g/dl (32.0-36.0); MEAN CELL VOLUME 108.5 fl (80-96); MEAN PLT VOLUME 7.1 fl (7.5-11.1); PLATELET COUNT 255 K/MM3 (134-434); RDW 14.5 % (11.6-15.6); WHITE BLOOD COUNT 9.2 K/mm3 (4.0-10.0)
[2016-05-20 08:08] LABS: CALCIUM 8.7 mg/dL (8.5-10.1); CREATININE 0.4 mg/dL (0.55-1.02); MAGNESIUM 1.8 mg/dL (1.8-2.4); PHOSPHOROUS 4.3 mg/dL (2.5-4.9)
[2016-05-20 08:16] LABS: THYROID STIMULATING HORMONE 8.09 uIU/ml (0.358-3.74)
[2016-05-20] MEDS: CHOLECALCIFEROL (VITAMIN D3) 1,000 UNIT TABLET (FP) PO SCH (09:43)
[2016-05-20] MEDS: SPIRONOLACTONE 25 MG TABLET (FP) PO SCH (09:43)
[2016-05-20] MEDS: VALSARTAN 80 MG TABLET (UD) PO SCH (09:43)
[2016-05-20] MEDS: FUROSEMIDE 20 MG TABLET (FP) PO SCH (09:43)
[2016-05-20] MEDS: predniSONE 10 MG TABLET (UD) PO SCH (09:43)
[2016-05-20] MEDS: ACLIDINIUM BROMIDE 400 MCG/INH AERO.POWD IH SCH (09:44)
[2016-05-20] MEDS: FLUTICASONE/SALMETEROL 100 MCG/50 MCG DISKUS IH SCH (09:44)
--- NOTE | 2016-05-20 10:44 | PN ---
Progress Note, Physician Chief Complaint: Right rib pain persists otherwise feels better History of Present Illness: Patient was seen and examined. Awake and alert. Chart was reviewed Complains of right side chest pain and intermittent dyspnea better - Current Medication List Current Medications: Active Medications Aclidinium [place] (Tudorza -) 1 puff IH BID [facility] Last Admin: 05/20/16 09:44 Dose: 1 puff Albuterol Sulfate (Ventolin Hfa Inhaler -) 2 puff IH Q4H PRN PRN Reason: SHORT OF BREATH/WHEEZING Albuterol Sulfate (Ventolin Hfa Inhaler -) 1 puff IH Q4H PRN PRN Reason: SHORT OF BREATH/WHEEZING Cholecalciferol (Vitamin D3 -) 2,000 unit PO DAILY [facility] Last Admin: 05/20/16 09:43 Dose: 2,000 unit Furosemide (Lasix -) 20 mg PO DAILY [facility] Last Admin: 05/20/16 09:43 Dose: 20 mg Heparin Sodium (Porcine) (Heparin -) 5,000 unit SQ TID [facility] Last Admin: 05/20/16 05:44 Dose: 5,000 unit Ibuprofen (Motrin -) 400 mg PO Q8H PRN PRN Reason: PAIN Last Admin: 05/17/16 09:35 Dose: 400 mg Oxycodone HCl (Roxicodone -) 5 mg PO Q4H PRN PRN Reason: PAIN Last Admin: 05/20/16 03:33 Dose: 5 mg Prednisone (Deltasone -) 10 mg PO DAILY [facility] Last Admin: 05/20/16 09:43 Dose: 10 mg Fluticasone/Salmeterol (Advair 100mcg/50mcg -) 1 puff IH BID [facility] Last Admin: 05/20/16 09:44 Dose: 1 puff Spironolactone (Aldactone -) 25 mg PO DAILY [facility] Last Admin: 05/20/16 09:43 Dose: 25 mg Valsartan (Diovan -) 80 mg PO DAILY [facility] Last Admin: 05/20/16 09:43 Dose: 80 mg - Objective Vital Signs: Vital Signs Temperature 97.5 F L 05/20/16 06:00 Pulse Rate 107 H 05/20/16 06:00 Respiratory Rate 18 05/20/16 06:00 Blood Pressure 110/70 05/20/16 06:00 O2 Sat by Pulse Oximetry (%) 92 L 05/20/16 06:00 Cardiovascular: Yes: Regular Rate and Rhythm, S1, S2 Respiratory: Yes: Diminished Gastrointestinal: Yes: Normal Bowel Sounds, Soft, Abdomen, Obese. No: Tenderness Edema: Yes Edema: LLE: 1+, RLE: 1+ Additional Findings/Remarks: - Review of Systems Constitutional: denies: Chills, Fever Cardiovascular: reports: Chest Pain. denies: Palpitations, (+) Shortness of Breath - improved Respiratory: denies: Cough, Hemoptysis, Orthopnea, PND, (+) SOB, SOB on Exertion Gastrointestinal: denies: Abdominal Pain, Constipation, Diarrhea, Melena, Nausea , Rectal Bleeding, Vomiting Musculoskeletal: denies: Joint Pain Neurological: denies: Dizziness, Headache, Numbness, Seizure, Syncope, Tremors Labs: CBC, BMP 05/20/16 05:10 05/20/16 05:10 Problem List - Problems (1) Chest pain Code(s): R07.9 - CHEST PAIN, UNSPECIFIED Qualifiers: Chest pain type: unspecified Qualified Code(s): R07.9 - Chest pain, unspecified (2) Pleural effusion Code(s): J90 - PLEURAL EFFUSION, NOT ELSEWHERE CLASSIFIED (3) Right rib fracture Code(s): S22.31XA - FRACTURE OF ONE RIB, RIGHT SIDE, INIT FOR CLOS FX Qualifiers: Encounter type: initial encounter Rib fracture type: single rib Fracture type: closed Qualified Code(s): S22.31XA - Fracture of one rib, right side, initial encounter for closed fracture (4) HTN (hypertension) Code(s): I10 - ESSENTIAL (PRIMARY) HYPERTENSION Qualifiers: Hypertension type: essential hypertension Qualified Code(s): I10 - Essential (primary) hypertension (5) Pulmonary HTN Code(s): I27.2 - OTHER SECONDARY PULMONARY HYPERTENSION (6) Sleep apnea, obstructive Code(s): G47.33 - OBSTRUCTIVE SLEEP APNEA (ADULT) (PEDIATRIC) Assessment/Plan 1. Right side chest pain due to right rib fracture secondary to mechanical fall , no LOC 2. Hypertension 3. COPD and obstructive sleep apnea 4. Pedal edema and pleural effusion etiology to be determined - underlying mild to moderate pulmonary HTN, echocardiography suboptimal and limited, possible diastolic dysfunction could not be fully excluded 5. Carotid external artery stenosis PLAN: 1. Pleural fluid evaluation probable transudate 2. Diuretics as needed - IV Lasix as needed 3. Bronchodilators, nebulizer and steroids 4. Consider Bystolic if tolerated 5. Continue Valsartan Further plans are to follow Thom Marin MD
[2016-05-20] MEDS ORDERED: NEBIVOLOL 2.5 MG TABLET (FP) PO SCH (11:00)
--- NOTE | 2016-05-20 12:38 | PN ---
Progress Note (short form) - Note Progress Note: PULMONARY States breathing at baseline. Pleural fluid exudative with negative cytology. Last Vital Signs Temp Pulse Resp BP Pulse Ox 97.5 F L 107 H 18 110/70 92 L 05/20/16 06:00 05/20/16 06:00 05/20/16 06:00 05/20/16 06:00 05/20/16 06:00 Gen: NAD at rest Heart: RRR Lung: decreased breath sounds at the bases Abd: soft, nontender Ext: + edema CBC, BMP 05/20/16 05:10 05/20/16 05:10 Active Medications Aclidinium [place] (Tudorza -) 1 puff IH BID [facility] Last Admin: 05/20/16 09:44 Dose: 1 puff Albuterol Sulfate (Ventolin Hfa Inhaler -) 2 puff IH Q4H PRN PRN Reason: SHORT OF BREATH/WHEEZING Albuterol Sulfate (Ventolin Hfa Inhaler -) 1 puff IH Q4H PRN PRN Reason: SHORT OF BREATH/WHEEZING Cholecalciferol (Vitamin D3 -) 2,000 unit PO DAILY [facility] Last Admin: 05/20/16 09:43 Dose: 2,000 unit Furosemide (Lasix -) 20 mg PO DAILY [facility] Last Admin: 05/20/16 09:43 Dose: 20 mg Heparin Sodium (Porcine) (Heparin -) 5,000 unit SQ TID [facility] Last Admin: 05/20/16 05:44 Dose: 5,000 unit Ibuprofen (Motrin -) 400 mg PO Q8H PRN PRN Reason: PAIN Last Admin: 05/17/16 09:35 Dose: 400 mg Nebivolol (Bystolic -) 2.5 mg PO DAILY [facility] Oxycodone HCl (Roxicodone -) 5 mg PO Q4H PRN PRN Reason: PAIN Last Admin: 05/20/16 03:33 Dose: 5 mg Prednisone (Deltasone -) 10 mg PO DAILY [facility] Last Admin: 05/20/16 09:43 Dose: 10 mg Fluticasone/Salmeterol (Advair 100mcg/50mcg -) 1 puff IH BID [facility] Last Admin: 05/20/16 09:44 Dose: 1 puff Spironolactone (Aldactone -) 25 mg PO DAILY [facility] Last Admin: 05/20/16 09:43 Dose: 25 mg Valsartan (Diovan -) 80 mg PO DAILY [facility] Last Admin: 05/20/16 09:43 Dose: 80 mg A/P Pleural Effusion Rib Fractures Atelectasis Pulmonary HTN Likely AREN Morbid Obesity - incentive spirometry - O2 as needed - PFTs, PSG as outpt - DVT prophylaxis
[2016-05-20] MEDS ORDERED: traMADol HCL 50 MG TABLET PO PRN (12:41)
--- NOTE | 2016-05-20 13:03 | DS ---
Physical Exam: SUBJECTIVE: Patient seen and examined Patient resting in bed nad. no acute events. afebrile and hemodynamically stable. Still has rib pain. Some pain when taking a deep breath. Pre post exercise O2 measurement yesterday shows that patient is 87% on RA at rest and 84 % on RA after flat surface walking. Improved to 91% on 4L O2 NC. She denies chest pain, h/a, palpitations, diaphoresis, LOC, abd pain, n/v, dysuria. She lost over 10 lb since admission, LE edema improved significantly, patient states she feels better while on new diuretics. OBJECTIVE: Vital Signs Period Temp Pulse Resp BP Sys/Pride Pulse Ox Last 24 Hr 97.5 F-98.7 F 90-109 18-22 110-132/60-73 91-94 PHYSICAL EXAM GENERAL: The patient is awake, alert, and fully oriented, in no acute distress. HEAD: Normal with no signs of trauma. very edematous red face EYES: PERRL, extraocular movements intact, sclera anicteric, conjunctiva clear. No ptosis. ENT: moist mucous membranes. NECK: Trachea midline, full range of motion, supple. LUNGS: bibasilar ronchi R>L. tenderness over R ribcage HEART: Regular rate and rhythm, S1, S2 ABDOMEN: Soft, nontender, nondistended, normoactive bowel sounds, no guarding, no rebound, no hepatosplenomegaly, no masses. EXTREMITIES: 2+ pulses, warm, well-perfused, LE 2+ pitting edema improved . NEUROLOGICAL: Cranial nerves II through XII grossly intact. Normal speech, gait not observed. PSYCH: Normal mood, normal affect. SKIN: Warm, dry LABS Laboratory Results - last 24 hr 05/20/16 05/20/16 05:10 05:10 WBC 9.2 RBC 3.85 Hgb 13.9 Hct 41.8 MCV 108.5 H MCHC 33.3 RDW 14.5 Plt Count 255 MPV 7.1 L Sodium 137 Potassium 3.7 Chloride 93 L Carbon Dioxide 35 H Anion Gap 9 BUN 8 D Creatinine 0.4 L D Random Glucose 93 D Calcium 8.7 Phosphorus 4.3 Magnesium 1.8 TSH 8.09 H HOSPITAL COURSE: Date of Admission:05/15/16 This is a 60 yo f with PMH of HTN, Sleep apnea, COPD on home oxygen (2L at night ), recent COPD exacerbation, recent rib fracture due to mechanical fall and chronic back pain, who presented due to right sided chest pain and B/L leg swelling. She has had shallow breathing since the fall due to pain. She had a mechanical fall at the end of February, w/o LOC, which caused a broken rib on R side. Patient was admitted on 03/26/[address] [facility] for COPD exacerbation with RLL effusion, Hyponatremia, increased troponins for demand ischemia. Was supposed to get outpatient sleep study but was unable to duet o insurance issues. Because of the sleep apnea and the mechanical fall, her breathing has been difficult. She also reports increased LE edema b/l. TTE last October was negative. She is comliant with home meds including diuretics. Patient was admitted and found to have newly broken 4th and 5th ribs, likely causing her pleuritic chest pain (rib series). She was found to have a slightly enlarged R pleural effusion on chest CTA as well as mediastinal lymphadenopathy which was unchanged from the CT on last admission several weeks ago. She had pleurocentesis done, which revealed a likely transudative fluid: Protein ratio=0.54 (borderline exudate) but LDH less than 2/3 upper limit ( transudate). PH sent but sample wasted. Gram stain negative for organisms, pleural fluid cytology p/d. She was told to get result from her pulmnologist outpatient. She was evaluated by cardiology and started on new diuretics and new BP medication. She lost over 10 LB and her edema improved. Repoear TE didnt visualise her R heart well but she likely has pulmonary HTN due to COPD, with some degree of R sided failure and hence fluid buildup, potentially causing R effusion and LE edema. She will need to f/u with cardiology Becase of her unexplained facial redness, fullness/congested appearance, she had a carotid duplex that showed L external carotid lesion >70%, Recent chest CTA showed no SVC obstruction. he may folow up wit vascular surgery outpatient. Started: vit D lasix 20 d PO aldactone 25 d diovan 80 d nebivolol 2.5 d ASA 81 Lipitor 40 Stopped: Norvasc, hctz Date of Discharge: 05/20/16 Minutes to complete discharge: 53 (na) Discharge Summary Reason For Visit: FRACTURE OF RIGHT RIB,CHEST PAIN,HYPERTENSION Current Active Problems COPD (chronic obstructive pulmonary disease) (Acute) Chest pain (Acute) Chronic hypoxemic respiratory failure (Acute) Dyspnea (Acute) Morbid obesity due to excess calories (Acute) Pedal edema (Acute) Pleural effusion (Acute) Right rib fracture (Acute) Condition: Stable - Instructions Diet, Activity, Other Instructions: You were here for right sided chest pain and leg swelling. We found that your chest pain was caused by broken ribs. We started you on Vitamin D to strengthen your bones, take it daily anf ask your primary doc to check Vit D and Calcium levels. You also have fluid in your right lung and in your legs. It is probably related to your COPD (causing blood to back up in the right side of your heart and in your legs). Please follow up with Dr Dinh who will be able to tell you the results of the lung fluid analysis. Use incentive spitometer at home 5 times a day 10 times each. Schedule outpatient sleep study. Also see a plant reliability engineer Dr Marin since the fluid buildup was affecting your heart. You need to use 4L oxygen at home during rest and exercise. There is some blockage in one of the arteries supplying your face. We started you on Lipitor to prevent further blockage. Ask your primary doc to check you Cholesterol. You can see Dr Piero Brooks (vascular specialist) for the vessel blockage. Ask your primary doc to check your liver studies. Additional new medications: Water pills: lasix 20 daily, aldactone 25 daily blood pressure pill Diovan 80 d Nebivolol 2.5 daily Stop taking Norvasc and hydrochlorothiazide. Ultram for pain Baby aspirin 81 mg daily Continue other meds Return to hospital if symptoms worsen. Referrals: Thom Marin MD [Staff Physician] - 2 Weeks Piero Brooks MD [Staff Physician] - 2 Weeks Jayme Ponce MD [Primary Care Provider] - 1 Week Emory Dinh MD [Staff Physician] - 1 Week Disposition: HOME - Home Medications Comprehensive Discharge Medication List: Ambulatory Orders Multivit-Min/Iron Fum/Folic AC [Ofpur-Xknoctr-Oznpjclb Tablet] 1 each PO DAILY 12/22/15 Vitamin B Complex [Super B-50 Complex] 1 each PO DAILY 12/22/15 Aclidinium [place] [Tudorza -] 1 puff IH BID #1 inhaler 04/02/16 Albuterol Sulfate Inhaler - [Ventolin HFA Inhaler -] 1 - 2 inh PO Q4H PRN #1 inhaler 04/02/16 Budesonide/Formeterol Fumarate [SYMBICORT 160/4.5mcg -] 2 puff IH BID #1 inhaler 04/02/16 Prednisone 10 mg PO DAILY #26 tablet 04/02/16 Aspirin Coated [Ecotrin -] 81 mg PO DAILY #30 tab 05/20/16 Atorvastatin Ca [Lipitor] 40 mg PO HS #30 tablet 05/20/16 Cholecalciferol (Vitamin D3) [Vitamin D3] 2,000 unit PO DAILY #30 tab 05/20/16 Furosemide [Lasix -] 20 mg PO DAILY #30 tablet 05/20/16 Nebivolol [Bystolic -] 2.5 mg PO DAILY #30 tab 05/20/16 Salmeterol/Fluticasone [Advair 100Mcg/50Mcg -] 1 puff IH BID #5 inhaler Spironolactone [Aldactone -] 25 mg PO DAILY #30 tablet 05/20/16 Tramadol HCl [Ultram] 50 mg PO Q6H PRN #50 tablet MDD 4 05/20/16 Valsartan [Diovan] 80 mg PO DAILY #30 tablet 05/20/16 Problem List - Problems (1) Chest pain Code(s): R07.9 - CHEST PAIN, UNSPECIFIED Qualifiers: Chest pain type: unspecified Qualified Code(s): R07.9 - Chest pain, unspecified (2) Chronic hypoxemic respiratory failure Code(s): J96.11 - CHRONIC RESPIRATORY FAILURE WITH HYPOXIA (3) Morbid obesity due to excess calories Code(s): E66.01 - MORBID (SEVERE) OBESITY DUE TO EXCESS CALORIES (4) Pleural effusion Code(s): J90 - PLEURAL EFFUSION, NOT ELSEWHERE CLASSIFIED (5) Right rib fracture Code(s): S22.31XA - FRACTURE OF ONE RIB, RIGHT SIDE, INIT FOR CLOS FX Qualifiers: Encounter type: initial encounter Rib fracture type: single rib Fracture type: closed Qualified Code(s): S22.31XA - Fracture of one rib, right side, initial encounter for closed fracture (6) Abdominal obesity Code(s): E65 - LOCALIZED ADIPOSITY (7) HTN (hypertension) Code(s): I10 - ESSENTIAL (PRIMARY) HYPERTENSION Qualifiers: Hypertension type: essential hypertension Qualified Code(s): I10 - Essential (primary) hypertension (8) Sleep apnea, obstructive Code(s): G47.33 - OBSTRUCTIVE SLEEP APNEA (ADULT) (PEDIATRIC) This patient is new to me today: No Emergency Visit: Yes ED Registration Date: 05/15/16 Care time: The patient presented to the Emergency Department on the above date and was hospitalized for further evaluation of their emergent condition. Critical Care patient: No - Discharge Referral Referred to [facility] No
[2016-05-20 13:45] VITALS: BP 124/70; PULSE 98; TEMP 98.8
--- NOTE | 2016-05-20 17:26 | PN ---
Teaching Attending Note Name of Resident: Della Noguera ATTENDING PHYSICIAN STATEMENT I saw and evaluated the patient. I reviewed the resident's note and discussed the case with the resident. I agree with the resident's findings and plan as documented. Patient is feeling better, with no acute distress. No fever or chills, no shortness of breath. Vital Signs Temperature 98.8 F 05/20/16 13:43 Pulse Rate 98 H 05/20/16 13:43 Respiratory Rate 18 05/20/16 13:43 Blood Pressure 124/70 05/20/16 13:43 O2 Sat by Pulse Oximetry (%) 92 L 05/20/16 09:00 CBCD WBC 9.2 K/mm3 (4.0-10.0) 05/20/16 05:10 RBC 3.85 M/mm3 (3.60-5.2) 05/20/16 05:10 Hgb 13.9 GM/dL (10.7-15.3) 05/20/16 05:10 Hct 41.8 % (32.4-45.2) 05/20/16 05:10 MCV 108.5 fl (80-96) H 05/20/16 05:10 MCHC 33.3 g/dl (32.0-36.0) 05/20/16 05:10 RDW 14.5 % (11.6-15.6) 05/20/16 05:10 Plt Count 255 K/MM3 (134-434) 05/20/16 05:10 MPV 7.1 fl (7.5-11.1) L 05/20/16 05:10 CMP Sodium 137 mmol/L (136-145) 05/20/16 05:10 Potassium 3.7 mmol/L (3.5-5.1) 05/20/16 05:10 Chloride 93 mmol/L (98-107) L 05/20/16 05:10 Carbon Dioxide 35 mmol/L (21-32) H 05/20/16 05:10 Anion Gap 9 (8-16) 05/20/16 05:10 BUN 8 mg/dL (7-18) D 05/20/16 05:10 Creatinine 0.4 mg/dL (0.55-1.02) L D 05/20/16 05:10 Creat Clearance w eGFR > 60 (>60) 05/16/16 05:35 Random Glucose 93 mg/dL (74-106) D 05/20/16 05:10 Calcium 8.7 mg/dL (8.5-10.1) 05/20/16 05:10 Total Bilirubin 0.5 mg/dL (0.2-1.0) D 05/16/16 05:35 AST 21 U/L (15-37) 05/16/16 05:35 ALT 23 U/L (12-78) 05/16/16 05:35 Alkaline Phosphatase 93 U/L (45-117) 05/16/16 05:35 Total Protein 6.5 g/dl (6.4-8.2) 05/16/16 05:35 Albumin 3.2 g/dl (3.4-5.0) L 05/16/16 05:35 CARDIAC ENZYMES Creatine Kinase 33 IU/L (26-192) 05/15/16 16:12 Troponin I < 0.02 ng/ml (0.00-0.05) 05/16/16 00:30 Home Medications Medication Instructions Recorded Multivit-Min/Iron Fum/Folic AC 1 each PO DAILY 12/22/15 [Maldy-Kzegzek-Zwboonhs Tablet] Vitamin B Complex [Super B-50 1 each PO DAILY 12/22/15 Complex] Aclidinium [place] [Tudorza -] 1 puff IH BID #1 inhaler 04/02/16 Albuterol Sulfate Inhaler - 1 - 2 inh PO Q4H PRN #1 inhaler 04/02/16 [Ventolin HFA Inhaler -] Budesonide/Formeterol Fumarate 2 puff IH BID #1 inhaler 04/02/16 [SYMBICORT 160/4.5mcg -] Prednisone 10 mg PO DAILY #26 tablet 04/02/16 Aspirin Coated [Ecotrin -] 81 mg PO DAILY #30 tab 05/20/16 Atorvastatin Ca [Lipitor] 40 mg PO HS #30 tablet 05/20/16 Cholecalciferol (Vitamin D3) 2,000 unit PO DAILY #30 tab 05/20/16 [Vitamin D3] Furosemide [Lasix -] 20 mg PO DAILY #30 tablet 05/20/16 Nebivolol [Bystolic -] 2.5 mg PO DAILY #30 tab 05/20/16 Salmeterol/Fluticasone [Advair 1 puff IH BID #5 inhaler 05/20/16 100Mcg/50Mcg -] Spironolactone [Aldactone -] 25 mg PO DAILY #30 tablet 05/20/16 Tramadol HCl [Ultram] 50 mg PO Q6H PRN #50 tablet MDD 4 05/20/16 Valsartan [Diovan] 80 mg PO DAILY #30 tablet 05/20/16 ASSESSMENT AND PLAN: 60 y/o lady with h/o HTN, AREN, COPD , recent admission for COPD exa in , recent R rib Fx 2/2 fall 2 weeks ago, who presented with worsening R chest pain and LE edema # Facial redness with fullness with congestive apperarance s/p carotid duplex that showed L external carotid lesion >70%, Recent chest CTA showed no SVC obstruction. he may follow up wit vascular surgery outpatient #Right pleural effusion :Unknown etiology. No signs of infection. s/p thoracocentesis ; Nl ESR , MICHELLE still pending # Right Rib Fractures due to mechanical fall # Pulmonary HTN on diovan and aldactone and on lasix continue # Morbid Obesity ; AREN continue incentive spirometry; on O2 as needed ; PFTs as outpt # LE edema: due to possible D heart failure , and pulm HTN continue diuretic for now # H/o COPD : cont inhalers and nebs ; cont home O2 ( requires 3 L at home ) # HTN : continue home meds. discharge patient home
[2016-05-20] MEDS ORDERED: ATORVASTATIN CA 40 MG TABLET (FP) PO SCH (22:00)
[2016-05-21] MEDS ORDERED: ASPIRIN COATED 81 MG TABLET.EC PO SCH (10:00)
== END 2016-05-20 14:52 | disposition home or self-care (01) | DRG 135 ==
LOC: JER 15:55 → JERBED 18:36 → J4W 20:19
PROVIDERS: ADMIT Internal Medicine; ATTEND Internal Medicine
PROC: 3E0F7GC Introduction of Other Therapeutic Substance into Respiratory Tract, Via Natural or Artificial Opening (ICD-10-PCS; 2016-05-15)
PROC: 0W993ZX Drainage of Right Pleural Cavity, Percutaneous Approach, Diagnostic (ICD-10-PCS; principal; 2016-05-18)
DX: S22.41XA Multiple fractures of ribs, right side, initial encounter for closed fracture (principal); J90 Pleural effusion, not elsewhere classified; J96.11 Chronic respiratory failure with hypoxia; W10.9XXA Fall (on) (from) unspecified stairs and steps, initial encounter; Y92.9 Unspecified place or not applicable; E66.01 Morbid (severe) obesity due to excess calories; Z99.81 Dependence on supplemental oxygen; Z68.41 Body mass index [BMI] 40.0-44.9, adult; Z71.3 Dietary counseling and surveillance; G47.33 Obstructive sleep apnea (adult) (pediatric); I27.2 Other secondary pulmonary hypertension; R26.81 Unsteadiness on feet; R29.6 Repeated falls; Z87.891 Personal history of nicotine dependence; R60.0 Localized edema; I45.10 Unspecified right bundle-branch block; R07.89 Other chest pain; E87.70 Fluid overload, unspecified
CPT/HCPCS: 36415; 71010-TC; 71020-TC; 71111-TC; 71275-TC; 76942; 80048; 80053; 80061; 81003; 81015; 82042; 82150; 82550; 82945; 83036; 83615; 83721; 83735; 83880; 84100; 84157; 84311; 84443; 84478; 84484; 85025; 85027; 85610; 85651; 86038; 87040; 87070; 87075; 87102; 87116; 87205; 87206; 87210; 88108; 88305-TC; 88341-TC; 89051; 93005; 93010; 93306-TC; 93880-TC; 93970-TC; 94010; 94761; 97116-GP; 97161-GP; 99284-25; J1644

== ENCOUNTER 2016-05-21 20:10 | Emergency (ER) | payer OTHER ==
[2016-05-21 20:16] VITALS: BP 135/77; PULSE 100; TEMP 97.6; BMI 42.4
[2016-05-21] MEDS ORDERED: morphine CARPU-JECT 2 MG/1 ML DISP.SYRIN IVPUSH ONE (20:21)
--- NOTE | 2016-05-21 20:22 | PDOC ---
History of Present Illness - General History Source: Patient Exam Limitations: No Limitations - History of Present Illness Initial Comments: 05/21/16 21:04 The patient is a 60 year old female with a significant past medical history of arthritis, hypertension, and COPD, presenting to the Emergency Department with left shoulder pain after a slip and fall. The patient reports that about five hours ago she was in the grocery store parking lot when she slipped due to the rain and fell onto her left side. She admits to bracing herself with her left arm, injuring her left shoulder. She reports pain at her shoulder, and reports that she is unable to move her shoulder. She denies numbness or tingling to the left arm. She denies any other injury. She admits that she was just discharged from the hospital yesterday (05/20) due to a fall down the stairs in her home on 05/15. She admits that she was also diagnosed COPD during this time in the hospital. She denies falling due to dizziness or lightheadedness. The patient denies head trauma, or headache. Patient denies dizziness, blurry vision, and double vision. Patient denies wrist pain, neck pain, and back pain. Patient denies shortness of breath, or cough. Social Hx: former cigarette smoker <Mary Zaman - Last Filed: 05/21/16 21:10> <Josey Kwon - Last Filed: 05/23/16 05:01> - General Chief Complaint: Shoulder Dislocation Stated Complaint: FALL/LT SHOULDER INJURY Time Seen by Provider: 05/21/16 20:19 Past History <Mary Zaman - Last Filed: 05/21/16 21:10> - Past Medical History COPD: Yes CHF: Yes HTN: Yes - Psycho/Social/Smoking Cessation Hx Anxiety: No Suicidal Ideation: No Smoking History: Former smoker Have you smoked in the past 12 months: Yes Number of Cigarettes Smoked Daily: 20 If you are a former smoker, when did you quit?: 1 YEAR AGO Information on smoking cessation initiated: No 'Breaking Loose' booklet given: 03/26/16 Hx Alcohol Use: No Drug/Substance Use Hx: No Substance Use Type: None Hx Substance Use Treatment: No <Josey Kwon - Last Filed: 05/23/16 05:01> - Past Medical History Allergies/Adverse Reactions: Allergies Allergy/AdvReac Type Severity Reaction Status Date / Time No Known Drug Allergies Allergy Verified 05/21/16 20:51 Home Medications: Ambulatory Orders Multivit-Min/Iron Fum/Folic AC [Ildbv-Sxowgkn-Pyqzrakr Tablet] 1 each PO DAILY 12/22/15 Vitamin B Complex [Super B-50 Complex] 1 each PO DAILY 12/22/15 Aclidinium Sheldon [Tudorza -] 1 puff IH BID #1 inhaler 04/02/16 Albuterol Sulfate Inhaler - [Ventolin HFA Inhaler -] 1 - 2 inh PO Q4H PRN #1 inhaler 04/02/16 Budesonide/Formeterol Fumarate [SYMBICORT 160/4.5mcg -] 2 puff IH BID #1 inhaler 04/02/16 Prednisone 10 mg PO DAILY #26 tablet 04/02/16 Aspirin Coated [Ecotrin -] 81 mg PO DAILY #30 tab 05/20/16 Atorvastatin Ca [Lipitor] 40 mg PO HS #30 tablet 05/20/16 Cholecalciferol (Vitamin D3) [Vitamin D3] 2,000 unit PO DAILY #30 tab 05/20/16 Furosemide [Lasix -] 20 mg PO DAILY #30 tablet 05/20/16 Nebivolol [Bystolic -] 2.5 mg PO DAILY #30 tab 05/20/16 Salmeterol/Fluticasone [Advair 100Mcg/50Mcg -] 1 puff IH BID #5 inhaler Spironolactone [Aldactone -] 25 mg PO DAILY #30 tablet 05/20/16 Valsartan [Diovan] 80 mg PO DAILY #30 tablet 05/20/16 Ibuprofen [Motrin -] 600 mg PO TID #30 tablet 05/21/16 Levothyroxine [Synthroid -] 75 mcg PO DAILY #30 tablet 05/21/16 Oxycodone HCl/Acetaminophen [Percocet 5/325 -] 2 tab PO Q6H #32 tablet MDD 8 Tramadol HCl [Ultram] 50 mg PO Q6H PRN #12 tablet MDD 4 05/21/16 Review of Systems - Review of Systems Able to Perform ROS?: Yes Comments:: 05/21/16 21:04 GENERAL/CONSTITUTIONAL: No fever or chills. No weakness. HEAD, EYES, EARS, NOSE AND THROAT: No change in vision. No ear pain or discharge. No sore throat. CARDIOVASCULAR: No chest pain or shortness of breath. RESPIRATORY: No cough, wheezing, or hemoptysis. GASTROINTESTINAL: No nausea, vomiting, diarrhea or constipation. GENITOURINARY: No dysuria, frequency, or change in urination. MUSCULOSKELETAL: + pain to left shoulder, + limited range of motion to left shoulder. No neck or back pain. SKIN: No rash NEUROLOGIC: No headache, vertigo, loss of consciousness, or change in strength/ sensation. ENDOCRINE: No increased thirst. No abnormal weight change. HEMATOLOGIC/LYMPHATIC: No anemia, easy bleeding, or history of blood clots. ALLERGIC/IMMUNOLOGIC: No hives or skin allergy. <Mary Zaman - Last Filed: 05/21/16 21:10> *Physical Exam - Vital Signs Last Vital Signs Temp Pulse Resp BP Pulse Ox 97.6 F 100 H 24 135/77 91 L 05/21/16 20:13 05/21/16 20:13 05/21/16 20:13 05/21/16 20:13 05/21/16 20:13 - Physical Exam Comments: 05/21/16 21:06 GENERAL: Awake, alert, and fully oriented, in no acute distress HEAD: No signs of trauma EYES: PERRLA, EOMI, sclera anicteric, conjunctiva clear ENT: Auricles normal inspection, hearing grossly normal, nares patent, oropharynx clear without exudates. Moist mucosa NECK: Normal ROM, supple, no lymphadenopathy, JVD, or masses LUNGS: Breath sounds equal, clear to auscultation bilaterally. No wheezes, and no crackles HEART: Regular rate and rhythm, normal S1 and S2, no murmurs, rubs or gallops ABDOMEN: Soft, nontender, normoactive bowel sounds. No guarding, no rebound. No masses EXTREMITIES: Limited range of motion to left shoulder. Good finger range of motion, color, and capillary refill bilaterally. No edema. No clubbing or cyanosis. No cords, or erythema NEUROLOGICAL: Cranial nerves II through XII grossly intact. Normal speech, normal gait SKIN: Warm, Dry, normal turgor, no rashes or lesions noted. <Mary Zaman - Last Filed: 05/21/16 21:10> - Vital Signs Last Vital Signs Temp Pulse Resp BP Pulse Ox 97.6 F 100 H 24 135/77 91 L 05/21/16 20:13 05/21/16 20:13 05/21/16 20:13 05/21/16 20:13 05/21/16 20:13 <Josey Kwon - Last Filed: 05/23/16 05:01> ED Treatment Course - RADIOLOGY Radiograph Interpretation: 05/21/16 21:08 XRay Left Shoulder As reviewed by Dr. Christine Montoya IMPRESSION: Left humeral neck slightly displaced fracture as well as a slightly displaced greater tuberosity fracture. - Medications Given in the ED: ED Medications Discontinued Medications Generic Name Dose Route Start Last Admin Trade Name Freq PRN Reason Stop Dose Admin Morphine Sulfate 2 mg 05/21/16 20:21 05/21/16 21:03 Morphine Injection - IVPUSH 05/21/16 20:22 2 mg ONCE ONE Administration <Mary Zaman - Last Filed: 05/21/16 21:10> - RADIOLOGY Radiology Studies Ordered: Category Date Time Status SHOULDER-LEFT [RAD] Stat Radiology 05/21/16 20:19 Ordered <Josey Kwon - Last Filed: 05/23/16 05:01> Medical Decision Making - Medical Decision Making 05/21/16 21:05 Dr. Ponce was called at his office, awaiting call back. Orthopedic on-call was called at 8:53, Dr. Carvajal returned the call and spoke to Dr. Kwon about the patient's shoulder fracture. <Mary Zaman - Last Filed: 05/21/16 21:10> - Medical Decision Making 05/21/16 20:50 Pt comes with FOOSH; trip and fall today at 3pm in the [employer] parking lot. She came late tot he ER< as she was awaiting her brother to pick her up and drive her to the ER. Pt states that she was neither dizzy, nor had chest palpitations. SHe simply slipped in the rain. She was recently admitted and discharged from the ER., and she was here for slipping and falling down stairs at her home. She states that she missed a step and fell. Pt states that she lives with her brothers and her mom and that she has help at home. Pt has a hx of HTN, COPD. She has normal exam. Mild swelling at the left shoulder. SHe has good brachial, radial and ulnar pulses and she is neurologically intact. She was given morphine for the pain. 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 She will be placed in a sling; I discussed the case with Dr. Carvajal of ortho <Josey Kwon - Last Filed: 05/23/16 05:01> *DC/Admit/Observation/Transfer - Attestations Scribe Attestion: 05/21/16 21:07 Documentation prepared by Mary Zaman, acting as manager medical writing for Josey Kwon MD. <Mary Zaman - Last Filed: 05/21/16 21:10> - Discharge Dispostion Admit: No <Josey Kwon - Last Filed: 05/23/16 05:01> Diagnosis at time of Disposition: Humeral head fracture, Fracture of neck of humerus, Hypothyroid - Discharge Dispostion Disposition: HOME Condition at time of disposition: Stable - Prescriptions Prescriptions: Ibuprofen [Motrin -] 600 mg PO TID #30 tablet Oxycodone HCl/Acetaminophen [Percocet 5/325 -] 2 tab PO Q6H #32 tablet MDD 8 Levothyroxine [Synthroid -] 75 mcg PO DAILY #30 tablet - Referrals Referrals: Jayme Ponce MD [Primary Care Provider] - Yovany Carvajal MD [Staff Physician] - John Navarro MD [Staff Physician] - - Patient Instructions Printed Discharge Instructions: How to Use a Sling, DI for Shoulder Fracture, DI for Frozen Shoulder, DI for Hypothyroidism
[2016-05-21] MEDS ORDERED: morphine CARPU-JECT 2 MG/1 ML DISP.SYRIN ONE (20:28)
[2016-05-21] MEDS ORDERED: KETOROLAC TROMETHAMINE 30 MG/1 ML VIAL IVPUSH ONE (21:16)
[2016-05-21] MEDS ORDERED: OXYCODONE/APAP 5/325MG COMBO TABLET PO ONE (21:17)
[2016-05-21] MEDS ORDERED: LEVOTHYROXINE NA 25 MCG TABLET (FP) ONE (21:24)
[2016-05-21] MEDS ORDERED: OXYCODONE/APAP 5/325MG COMBO TABLET ONE (21:24)
[2016-05-21] MEDS ORDERED: KETOROLAC TROMETHAMINE 30 MG/1 ML VIAL ONE (21:24)
[2016-05-21] MEDS ORDERED: LEVOTHYROXINE NA 75 MCG TABLET (FP) PO ONE (21:24)
== END 2016-05-21 21:32 | disposition home or self-care (01) ==
LOC: JER 20:10 → SUPCPDRO 20:10 → JER 21:32
PROC: 3E033NZ Introduction of Analgesics, Hypnotics, Sedatives into Peripheral Vein, Percutaneous Approach (ICD-10-PCS; principal; 2016-05-21)
PROC: 3E0333Z Introduction of Anti-inflammatory into Peripheral Vein, Percutaneous Approach (ICD-10-PCS; 2016-05-21)
DX: S42.252A Displaced fracture of greater tuberosity of left humerus, initial encounter for closed fracture (principal); S42.295A Other nondisplaced fracture of upper end of left humerus, initial encounter for closed fracture; W18.39XA Other fall on same level, initial encounter; Y93.89 Activity, other specified; Y92.481 Parking lot as the place of occurrence of the external cause; Y99.8 Other external cause status; I50.9 Heart failure, unspecified; I10 Essential (primary) hypertension; J44.9 Chronic obstructive pulmonary disease, unspecified; M12.9 Arthropathy, unspecified
CPT/HCPCS: 36415; 73030-TC-LT; 80307; 96374; 96375; 99284-25